=== PATIENT | female | born 1980 | race Caucasian/White ===

== ENCOUNTER → 2020-02-01 13:00 | Outpatient (BNVA) | payer MEDICAID, SELFPAY | PROVIDERS: Visit Provider Psychiatry & Neurology Psychiatry | DX: F41.1 Generalized anxiety disorder (principal); F43.12 Post-traumatic stress disorder, chronic | CPT/HCPCS: 99213 ==

== ENCOUNTER 2020-03-07 12:03 | Emergency (ER) | payer MEDICAID, SELFPAY ==
[2020-03-07 12:10] VITALS: BP 159/93; PULSE 93; RESP 16; TEMP 36.6; O2SAT 95; BMI 27.7
--- NOTE | 2020-03-07 12:23 | ED_ITS ---
HPI - Dental/Oral General: Chief complaint: Dental/Oral Stated complaint: Pain in Mouth/Bleeding Time Seen by Provider: 03/07/20 12:11 Source: patient Mode of arrival: ambulatory Limitations: no limitations History of Present Illness: HPI Narrative: 40-year-old female patient presents to the emergency department with right upper dental pain. She reports dental extraction completed 03/02/2020 by dentist provider in [facility]. She reports use of antibiotics prescribed by her dentist. States dental pain not improved with use of hydrocodone. Reports this morning, had blood/purulent fluid drained from the area. She reports drainage/bleeding has stopped. REmains on clindamycin. MD Complaint: tooth pain Teeth map: 1. Erythema to the gumline, edema present, tooth appears to be avulsed, question incomplete extraction. Onset (ago): day(s) (1-2) Duration: intermittent Severity: moderate Relieving factors: prescription analgesics and other (Tylenol [id number] which has helped) Exacerbating factors: chewing, cold and drinking fluids Context: history of dental caries and poor dental care Associated symptoms: Reports gum swelling; Denies fever(s) Review of Systems General: Reports: 10 or more systems reviewed and unremarkable except in HPI and below Const: Denies: fever(s), chills or diaphoresis Eyes: Denies: blurry vision or eye redness ENMT: Reports: oral sores, bleeding gums and dental pain; Denies: throat pain, uvular edema or disequilibrium Card: Denies: chest pain, palpitations or irregular heart rhythm Resp: Denies: dyspnea, productive cough, non-productive cough or wheezing GI: Denies: abdominal pain, nausea or vomiting : Denies: difficulty voiding or dysuria Musc: Denies: back pain Skin/Breast: Denies: rash or pruritus Neuro: Denies: headache(s), weakness in extremities or behavioral changes Psych: Denies: anxiety or depression Eder/Lymph: Denies: easy bruising PFSH ED PFSH: Social History (Updated 12/17/19 @ 15:12 by Kem Gates LPN) Smoking and tobacco status: never smoked Second hand smoke exposure: Yes Smoking risk assessment/counseling performed?: No Current gender identity: Female Physical Exam Const: COMMON NORMALS: no acute distress, patient oriented x3, healthy appearing and alert GENERAL APPEARANCE: cooperative, comfortable and well hydrated HENMT: COMMON NORMALS: normocephalic, atraumatic, Normal external nose present and moist oral mucous membranes HEAD & SCALP: normal to inspection, normocephalic and atraumatic FACE & SINUS: normal facial exam and sinuses nontender NOSE: Normal external nose present MOUTH: lip normal and tongue normal; no drooling, no malodorous breath and no muffled voice TEETH & GINGIVA: Yes abnormal tooth and associated gingiva TEETH & GINGIVA IMAGES: 1. Erythema to the gumline, edema present, tooth appears to be avulsed, question incomplete extraction. THROAT: no uvular edema Eye: COMMON NORMALS: Equal, round and reactive pupils present and EOMs intact bilaterally GENERAL EYE: appearance normal, both eyes and all related structures PUPIL: Yes Equal, round and reactive pupils present Neck/C-Spine: COMMON NORMALS: full ROM and no lymphadenopathy GENERAL: Yes normal visual inspection and Yes trachea midline CERVICAL SPINE: Yes cervical ROM normal Lymph: LYMPHATIC: no lymphadenopathy noted Chest: COMMONS NORMALS: normal inspection of the chest Resp: COMMON NORMALS: normal respiratory effort and clear to auscultation bilaterally AUSCULTATION: clear to auscultation bilaterally Cardio: COMMON NORMALS: regular rhythm, S1 normal heart sound present, S2 normal heart sound present and Peripheral pulses 2+ throughout RHYTHM: regular rhythm HEART SOUNDS: S1 normal heart sound present and S2 normal heart sound present PERIPHERAL PULSES: Peripheral pulses 2+ throughout GI: COMMON NORMALS: Soft to palpation and non-tender INSPECTION: Yes normal to inspection PALPATION: Yes Soft to palpation : COMMON NORMALS: Yes no CVA tenderness BLADDER/KIDNEY EXAM: Yes no CVA tenderness Back/Pelvis: COMMON NORMALS: no CVA tenderness and thoracic and lumbar spine normal to inspection Extremity: COMMON NORMALS: normal to inspection and capillary refill normal Neuro: COMMON NORMALS: patient oriented x3 and no focal motor deficits SENSORIUM/ORIENTATION: Yes alert Psych: COMMON NORMALS: mental status grossly normal, Normal thought process present and cooperative ACTIVITY/MOTOR BEHAVIOR: Yes appropriate eye contact THOUGHT PROCESS: Normal thought process present Skin: COMMON NORMALS: no rashes or lesions noted and turgor normal GENERAL SKIN EXAM: no rashes or lesions noted and turgor normal Discharge Plan Discharge Patient Disposition: Home Clinical Impression: Pain, dental, Dental caries Condition: Stable Prescriptions: New ibuprofen 800 mg tablet 800 mg PO TID PRN (Reason: pain) Qty: 20 RF: 0 Lidocaine Viscous 2 % solution 10 ml topical Q3H PRN (Reason: pain) Qty: 100 RF: 0 No Action omeprazole 20 mg capsule,delayed release(DR/EC) 20 mg PO BID RF: 0 sertraline [Zoloft] 50 mg tablet 50 mg PO DAILY Qty: 30 RF: 2 hydroxyzine HCl 50 mg tablet 25 mg PO QID PRN (Reason: anxiety) Qty: 120 RF: 2 Discharge Orders: Discharge Order (Routine); Ordered 03/07/20 Ordered By: Francesca Lira Discharge Diet: GI Soft Discharge Activity: Resume usual activity Patient Instructions: Dental Caries (ED), Toothache (ED) Activity Restrictions/Additional Instructions: eat with use of ibuprofen, do not [id number] medication with exception of Tylenol due to duplication of therapy that can occur. Warm salt water swish and spit several times daily May use warm water with half hydrogen peroxide swish and spit several times daily as needed for pain Apply lidocaine gel with Q-tip to painful areas of the mouth as directed Take antibiotics until all gone, even if feeling better Return to the emergency department if you develop redness of the face, fever, inability to swallow or drooling Follow-up with your dentist this week for reevaluation May apply dental wax over the painful areas to help with pain Avoid chewing on the affected side Soft foods only Stand Alone Forms: Work/School Release Coding Level of Care Code ED Linux Solar[employer] 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
[2020-03-07] MEDS: ketorolac 60 mg/2 mL INJ IM (13:21)
[2020-03-07 13:22] VITALS: RESP 16; TEMP 36.6; O2SAT 95
== END 2020-03-07 13:22 | disposition home or self-care (01) ==
PROVIDERS: Emergency Provider Nurse Practitioner Family
DX: K02.9 Dental caries, unspecified (principal); Z77.22 Contact with and (suspected) exposure to environmental tobacco smoke (acute) (chronic)
CPT/HCPCS: 12345; 96372; 99281; 99283; J1885

== ENCOUNTER 2020-04-06 15:43 | Outpatient (CLI) | payer MEDICAID, SELFPAY ==
--- NOTE | 2020-04-06 | US_ITS ---
WS: [id number] PELVIC ULTRASOUND REASON FOR VISIT: HIRSUTISM TECHNIQUE: Grayscale and Doppler transabdominal and transvaginal pelvic ultrasound. FINDINGS: Uterus measures 10.9 cm x 6.6 cm x 5.0 centimeters. No uterine mass. Right ovary measures 2.4 cm x 2.2 cm x 1.9 cm. Left ovary measures 2.3 cm x 1.8 cm x 2.4 cm. Multiple small nabothian and cysts within the cervix. Small solitary cyst seen in the right ovary. The right ovary is otherwise unremarkable. The left ovary is unremarkable. No free fluid in the pelvis. No pelvic mass. US/US pelvic with transvaginal IMPRESSION: Small cyst right ovary, ovaries otherwise unremarkable.
== END 2020-04-06 15:44 | disposition home or self-care (01) ==
LOC: US 15:48
PROVIDERS: PCP Nurse Practitioner Family; Visit Provider Nurse Practitioner Family
DX: L68.0 Hirsutism (principal); N83.201 Unspecified ovarian cyst, right side
CPT/HCPCS: 76830; 76856

== ENCOUNTER → 2020-06-10 09:18 | Outpatient (BNVA) | payer MEDICAID, SELFPAY | PROVIDERS: PCP Nurse Practitioner Family; Visit Provider Psychiatry & Neurology Psychiatry | DX: F41.1 Generalized anxiety disorder (principal); F43.12 Post-traumatic stress disorder, chronic | CPT/HCPCS: 99214 ==

== ENCOUNTER → 2020-08-26 10:48 | Outpatient (BNVA) | payer MEDICAID, SELFPAY | PROVIDERS: PCP Nurse Practitioner Family; Visit Provider Psychiatry & Neurology Psychiatry | DX: F41.1 Generalized anxiety disorder (principal); F43.12 Post-traumatic stress disorder, chronic | CPT/HCPCS: 99214 ==

== ENCOUNTER 2020-11-10 12:30 | Emergency (ER) | payer MEDICARE, MEDICAID, SELFPAY ==
[2020-11-10 12:43] VITALS: BP 123/86; PULSE 98; RESP 18; TEMP 36.9; O2SAT 95; BMI 29.8
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
[2020-11-10] MEDS: ketorolac 60 mg/2 mL INJ IM (13:55)
[2020-11-10 15:31] VITALS: BP 124/89; PULSE 89; RESP 18; O2SAT 98
== END 2020-11-10 15:32 | disposition home or self-care (01) ==
PROVIDERS: Emergency Provider Physician Assistant; PCP Nurse Practitioner Family
DX: S13.4XXA Sprain of ligaments of cervical spine, initial encounter (principal); M25.512 Pain in left shoulder; Z77.22 Contact with and (suspected) exposure to environmental tobacco smoke (acute) (chronic); V89.2XXA Person injured in unspecified motor-vehicle accident, traffic, initial encounter
CPT/HCPCS: 70450; 72125; 73030; 96372; 99283; J1885

== ENCOUNTER → 2020-11-22 10:03 | Outpatient (BNVA) | payer MEDICAID, SELFPAY | PROVIDERS: PCP Nurse Practitioner Family; Visit Provider Psychiatry & Neurology Psychiatry | DX: F41.1 Generalized anxiety disorder (principal); F43.12 Post-traumatic stress disorder, chronic | CPT/HCPCS: 99214 ==

== ENCOUNTER 2020-11-30 06:00 | Outpatient (RCR) | payer MEDICAID, SELFPAY | END 2020-12-27 23:59 | disposition home or self-care (01) | LOC: SPT 06:00 | PROVIDERS: PCP Nurse Practitioner Family; Referring Provider Internal Medicine; Visit Provider Internal Medicine | DX: M79.10 Myalgia, unspecified site (principal); Z91.89 Other specified personal risk factors, not elsewhere classified; M25.512 Pain in left shoulder; M54.9 Dorsalgia, unspecified | CPT/HCPCS: 97161 ==

== ENCOUNTER → 2021-01-06 12:50 | Outpatient (BNVA) | payer MEDICAID, SELFPAY | PROVIDERS: PCP Nurse Practitioner Family; Visit Provider Psychiatry & Neurology Psychiatry | DX: F41.1 Generalized anxiety disorder (principal); F43.12 Post-traumatic stress disorder, chronic | CPT/HCPCS: 99213 ==

== ENCOUNTER → 2021-01-10 14:42 | Outpatient (BNVA) | payer MEDICAID, SELFPAY | PROVIDERS: PCP Nurse Practitioner Family; Visit Provider Family Medicine | DX: F41.1 Generalized anxiety disorder (principal); R63.5 Abnormal weight gain; Z13.220 Encounter for screening for lipoid disorders; Z13.6 Encounter for screening for cardiovascular disorders; Z76.89 Persons encountering health services in other specified circumstances | CPT/HCPCS: 80053; 80061; 84443; 85025 ==

== ENCOUNTER → 2021-03-06 11:50 | Outpatient (BNVA) | payer MEDICAID, SELFPAY | PROVIDERS: PCP Nurse Practitioner Family; Visit Provider Nurse Practitioner | DX: Z20.822 Contact with and (suspected) exposure to COVID-19 (principal); B34.9 Viral infection, unspecified | CPT/HCPCS: 87426 ==

== ENCOUNTER → 2021-05-22 16:58 | Outpatient (BNVA) | payer MEDICAID, SELFPAY | PROVIDERS: PCP Family Medicine; Visit Provider Nurse Practitioner Family | DX: Z20.822 Contact with and (suspected) exposure to COVID-19 (principal) | CPT/HCPCS: 87635 ==

== ENCOUNTER → 2021-06-28 09:25 | Outpatient (BNVA) | payer MEDICAID, SELFPAY | PROVIDERS: PCP Family Medicine; Visit Provider Nurse Practitioner Family | DX: Z20.822 Contact with and (suspected) exposure to COVID-19 (principal) | CPT/HCPCS: 87635 ==

== ENCOUNTER → 2021-07-05 14:02 | Outpatient (BNVA) | payer MEDICAID, SELFPAY | PROVIDERS: PCP Family Medicine; Visit Provider Psychiatry & Neurology Psychiatry | DX: F41.1 Generalized anxiety disorder (principal); F43.12 Post-traumatic stress disorder, chronic; G47.00 Insomnia, unspecified | CPT/HCPCS: 99214 ==

== ENCOUNTER 2022-01-20 20:53 | Emergency (ER) | payer MEDICARE, MEDICAID, SELFPAY ==
[2022-01-20 21:00] VITALS: BP 122/84; PULSE 75; RESP 18; TEMP 36.5; O2SAT 97; BMI 33.9
[2022-01-20 22:00] VITALS: BP 129/83; PULSE 78; RESP 18; TEMP 36.6; O2SAT 97
--- NOTE | 2022-01-20 22:08 | W.ED.BACK ---
HPI - Back Pain/Injury General: Chief Complaint: Back Pain/Injury Stated Complaint: lower back pain Time Seen by Provider: 01/20/22 21:39 History of Present Illness: Patient is a 42-year-old female comes to the ED with lower back pain. 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 She has had low back strains like this in the past and has been prescribed muscle relaxers which she is currently out of. She took Motrin around 5:00 tonight. Denies any pain radiating down her legs, bladder or bowel incontinence, pelvic anesthesia or any weakness to lower extremities. Associated symptoms: Deny abdominal pain, chills, dysuria, fatigue, fever(s), hematuria, nausea or vomiting Review of Systems Const: Denies: fever(s), chills or fatigue Eyes: Denies: change in vision or eye discomfort ENMT: Denies: throat pain, odynophagia, nasal discharge or nasal congestion Card: Denies: chest pain, palpitations, edema, swelling of feet/ankles, dyspnea on exertion or orthopnea Resp: Denies: dyspnea, productive cough or non-productive cough GI: Denies: abdominal pain, nausea, vomiting, diarrhea, constipation or hematochezia : Denies: flank pain, dysuria or hematuria Musc: Reports: back pain; Denies: neck pain or extremity swelling Skin/Breast: Denies: rash or new lesions Neuro: Denies: headache(s), numbness in extremities or weakness in extremities PFS ED PFSH: Medical History (Updated 01/20/22 @ 22:28 by TIM Soliz) No pertinent family history Psychiatric care Social History Smoking and tobacco status: former smoker Quit status (tobacco): has quit using tobacco Year quit tobacco: 2004 Second hand smoke exposure: Yes Smoking risk assessment/counseling performed?: No Alcohol intake: former Year of sobriety/quit date alcohol: 2004 Desire information about alcohol rehabilitation?: No Counseling given: No Current gender identity: Female Female Reproductive History: Date of last menstrual period: 01/23/22 Physical Exam Const: COMMON NORMALS: no acute distress, patient oriented x3 and alert GENERAL APPEARANCE: cooperative and comfortable HENMT: COMMON NORMALS: normocephalic HEAD & SCALP: normocephalic MOUTH: Normal oral and palatal mucosa present THROAT: posterior oropharynx normal and uvula midline Neck/C-Spine: COMMON NORMALS: supple GENERAL: Yes normal visual inspection Resp: COMMON NORMALS: normal respiratory effort, No retractions, No use of accessory muscles and clear to auscultation bilaterally AUSCULTATION: clear to auscultation bilaterally Cardio: COMMON NORMALS: regular rate, regular rhythm, S1 normal heart sound present, S2 normal heart sound present, No gallops present (Cardio), No clicks present (Cardio), No murmurs present (Cardio) and Peripheral pulses 2+ throughout RATE: regular rate RHYTHM: regular rhythm HEART SOUNDS: S1 normal heart sound present and S2 normal heart sound present PERIPHERAL PULSES: Peripheral pulses 2+ throughout GI: COMMON NORMALS: Normal to inspection, nondistended, normoactive bowel sounds present, Soft to palpation, non-tender and no masses PALPATION: Yes Soft to palpation : COMMON NORMALS: Yes no CVA tenderness BLADDER/KIDNEY EXAM: Yes no CVA tenderness Back/Pelvis: COMMON NORMALS: no CVA tenderness LUMBAR SPINE/LOWER BACK: No lumbar spinal tenderness and Yes paraspinal muscle tenderness Lumbar paraspinal muscle tenderness: bilateral Extremity: COMMON NORMALS: normal to inspection Neuro: COMMON NORMALS: patient oriented x3 SENSORIUM/ORIENTATION: Yes alert GAIT: Yes Normal gait present Skin: GENERAL SKIN EXAM: dry skin Course Vital Signs: Vital signs: Vital Signs Temperature 97.8 F 01/20/22 22:00 Pulse Rate 78 01/20/22 22:00 Respiratory Rate 18 01/20/22 22:00 Blood Pressure 129/83 01/20/22 22:00 Pulse Oximetry 97 01/20/22 22:00 Oxygen Delivery Me thod 01/20/22 22:00 MDM - Back Pain/Injury Medical Decision Making Patient is a 42-year-old female comes to the ED with lower back pain. 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 Denies any cauda equina symptoms. Vitals are stable. Patient appears nontoxic in no acute distress or pain. She has some lumbar paraspinal muscle tenderness bilaterally but no spinal lumbar tenderness. Patient was given a dose of Toradol and Norflex here in the ED. She is diagnosed with lower back strain and was discharged home with a prescription for ibuprofen and a muscle relaxer. Return to ED precautions given. Follow-up with PCP in the next week for reevaluation. Patient understood agree with plan. Discharge Plan Discharge Patient Disposition: Home Clinical Impression: Low back strain Qualifiers: Encounter type: initial encounter Qualified Code(s): S39.012A - Strain of muscle, fascia and tendon of lower back, initial encounter Condition: Stable Prescriptions: New methocarbamol 750 mg tablet 750 mg PO Q8H PRN (Reason: Back muscle pain and spasms) Qty: 20 0RF ibuprofen 800 mg tablet 800 mg PO Q8H PRN (Reason: pain) Qty: 20 0RF No Action fluticasone propionate [Allergy Relief (fluticasone)] 50 mcg/actuation spray,suspension 1 spray intranasal BID Rx Instructions: administer into each nostril albuterol sulfate [Ventolin HFA] 90 mcg/actuation HFA aerosol inhaler 2 puff inhalation Q6H PRN (Reason: Shortness Of Breath) baclofen 10 mg tablet 10 mg PO TID PRN (Reason: pain) Qty: 60 2RF trazodone 100 mg tablet 200 mg PO .HS PRN (Reason: insomnia) Qty: 180 0RF sertraline 100 mg tablet 200 mg PO DAILY 90 Days Qty: 180 0RF hydroxyzine HCl 50 mg tablet 50 mg PO QID PRN (Reason: anxiety) Qty: 360 0RF propranolol 20 mg tablet 20 mg PO BID 90 Days Qty: 180 0RF sucralfate 1 gram tablet 1 g PO BID Qty: 60 3RF pantoprazole [Protonix] 40 mg tablet,delayed release (DR/EC) 40 mg PO BID Qty: 60 3RF Discharge Orders: Discharge ED (Routine); Ordered 01/20/22 Ordered By: Freddy Joseph Referrals: Frankie Polo DO [Primary Care Provider] - Discharge Diet: Regular Discharge Activity: Increase activity as tolerated Patient Instructions: Low Back Strain (ED) Activity Restrictions/Additional Instructions: Follow-up with medical provider as directed in the next 7 to 10 days for reevaluation. Take medications as prescribed. Return to the ER or your medical provider if condition worsens. Please read and understand discharge instructions. Thank you for choosing [facility] for your healthcare needs today. Please realize this is an emergency room and that we are providing you with a medical screening exam and this may not be complete and all inclusive of all the testing and or work up that you may need to determine your ailment or severity of your illness. It is very important that you follow up as instructed or that you return to the Emergency Department should you have concerns or if your condition changes or worsens in any way. 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
[2022-01-20] MEDS: orphenadrine 30 mg/mL Inj 2 mL 60 MG IM (22:16)
[2022-01-20] MEDS: ketorolac 60 mg/2 mL INJ IM (22:17)
[2022-01-20 22:30] VITALS: BP 132/95; PULSE 75; RESP 16; O2SAT 94
== END 2022-01-20 22:30 | disposition home or self-care (01) ==
PROVIDERS: Emergency Provider Physician Assistant; PCP Family Medicine
DX: S39.012A Strain of muscle, fascia and tendon of lower back, initial encounter (principal); X50.9XXA Other and unspecified overexertion or strenuous movements or postures, initial encounter
CPT/HCPCS: 96372; 99284; J1885; J2360

== ENCOUNTER 2022-04-30 15:15 | Emergency (ER) | payer MEDICARE, MEDICAID, SELFPAY ==
[2022-04-30 15:24] VITALS: BP 135/78; PULSE 91; RESP 14; TEMP 36.6; O2SAT 98
--- NOTE | 2022-04-30 17:27 | W.ED.GENADLT ---
HPI - General Adult General: Chief complaint: Abdominal Pain Stated complaint: Med refill, abd pains Time Seen by Provider: 04/30/22 17:11 History of Present Illness: Patient is a 42-year-old female comes to the ED for medication refill. Patient takes acid reflux medication and she has been out of them for the past 3 to 4 days. She has been trying to get her medications refilled but said trouble getting in touch with her doctor due to the holidays. Denies any chest pain, abdominal pain, nausea/vomiting. Associated symptoms: Deny chest pain, dyspnea, headache(s), nausea, rash, palpitations or vomiting Review of Systems Const: Denies: fever(s), chills or fatigue Eyes: Denies: change in vision or eye discomfort ENMT: Denies: throat pain, odynophagia, nasal discharge or nasal congestion Card: Denies: chest pain, palpitations, edema, swelling of feet/ankles, dyspnea on exertion or orthopnea Resp: Denies: dyspnea, productive cough or non-productive cough GI: Reports: heartburn; Denies: abdominal pain, nausea, vomiting, diarrhea, constipation or hematochezia : Denies: flank pain, dysuria or hematuria Musc: Denies: neck pain, back pain or extremity swelling Skin/Breast: Denies: rash or new lesions Neuro: Denies: headache(s), numbness in extremities or weakness in extremities PFSH ED PFSH: Medical History (Updated 05/01/22 @ 01:03 by TIM Soliz) GERD without esophagitis No pertinent family history Psychiatric care Social History Smoking and tobacco status: former smoker Quit status (tobacco): has quit using tobacco Year quit tobacco: 2004 Second hand smoke exposure: Yes Smoking risk assessment/counseling performed?: No Alcohol intake: former Year of sobriety/quit date alcohol: 2004 Desire information about alcohol rehabilitation?: No Counseling given: No Current gender identity: Female Female Reproductive History: Date of last menstrual period: 01/23/22 Physical Exam Const: COMMON NORMALS: no acute distress, patient oriented x3 and alert GENERAL APPEARANCE: cooperative and comfortable HENMT: COMMON NORMALS: normocephalic HEAD & SCALP: normocephalic MOUTH: Normal oral and palatal mucosa present THROAT: posterior oropharynx normal and uvula midline Neck/C-Spine: COMMON NORMALS: supple GENERAL: Yes normal visual inspection Resp: COMMON NORMALS: normal respiratory effort, No retractions, No use of accessory muscles and clear to auscultation bilaterally AUSCULTATION: clear to auscultation bilaterally Cardio: COMMON NORMALS: regular rate, regular rhythm, S1 normal heart sound present, S2 normal heart sound present, No gallops present (Cardio), No clicks present (Cardio), No murmurs present (Cardio) and Peripheral pulses 2+ throughout RATE: regular rate RHYTHM: regular rhythm HEART SOUNDS: S1 normal heart sound present and S2 normal heart sound present PERIPHERAL PULSES: Peripheral pulses 2+ throughout GI: COMMON NORMALS: Normal to inspection, nondistended, normoactive bowel sounds present, Soft to palpation, non-tender and no masses PALPATION: Yes Soft to palpation : COMMON NORMALS: Yes no CVA tenderness BLADDER/KIDNEY EXAM: Yes no CVA tenderness Back/Pelvis: COMMON NORMALS: no CVA tenderness Extremity: COMMON NORMALS: normal to inspection Neuro: COMMON NORMALS: patient oriented x3 SENSORIUM/ORIENTATION: Yes alert GAIT: Yes Normal gait present Skin: GENERAL SKIN EXAM: dry skin Course Vital Signs: Vital signs: Vital Signs Temperature 97.9 F 04/30/22 15:24 Pulse Rate 91 04/30/22 15:24 Respiratory Rate 14 04/30/22 15:24 Blood Pressure 135/78 04/30/22 15:24 Pulse Oximetry 98 04/30/22 15:24 Oxygen Delivery Me thod 04/30/22 15:24 [facility] - General Adult Medical Decision Making Patient is a 42-year-old female comes to the ED for medication refill. Patient takes acid reflux medication and she has been out of them for the past 3 to 4 days. She has been trying to get her medications refilled but said trouble getting in touch with her doctor due to the holidays. Denies any chest pain, abdominal pain, nausea/vomiting. Exam is benign. Patient was stable for discharge home and sent with a prescription for pantoprazole and sucralfate. Told to follow-up with her PCP next week for reevaluation. Return ED precautions given. Patient understood and agreed with plan. Discharge Plan Discharge Patient Disposition: Home Clinical Impression: Acid reflux disease Qualifiers: Esophagitis presence: esophagitis presence not specified Qualified Code(s): K21.9 - Gastro-esophageal reflux disease without esophagitis Condition: Stable Prescriptions: New pantoprazole 40 mg tablet,delayed release (DR/EC) 40 mg PO DAILY 28 Days Qty: 30 0RF sucralfate 1 gram tablet 1 g PO BID Qty: 60 0RF No Action fluticasone propionate [Allergy Relief (fluticasone)] 50 mcg/actuation spray,suspension 1 spray intranasal BID Rx Instructions: administer into each nostril albuterol sulfate [Ventolin HFA] 90 mcg/actuation HFA aerosol inhaler 2 puff inhalation Q6H PRN (Reason: Shortness Of Breath) baclofen 10 mg tablet 10 mg PO TID PRN (Reason: pain) Qty: 60 2RF pantoprazole [Protonix] 40 mg tablet,delayed release (DR/EC) 40 mg PO BID Qty: 60 3RF hydroxyzine HCl 50 mg tablet 50 mg PO QID PRN (Reason: anxiety) Qty: 120 0RF sertraline 100 mg tablet 200 mg PO DAILY Qty: 30 0RF trazodone 100 mg tablet 200 mg PO .HS PRN (Reason: insomnia) Qty: 60 0RF propranolol 20 mg tablet 20 mg PO BID Qty: 60 0RF sucralfate 1 gram tablet See Rx Instructions .ROUTE .COMPLEX Qty: 60 0RF Dose Instruction: TAKE ONE TABLET BY MOUTH TWICE A DAY Rx Instructions: TAKE ONE TABLET BY MOUTH TWICE A DAY methocarbamol 750 mg tablet 750 mg PO Q8H PRN (Reason: Back muscle pain and spasms) Qty: 20 0RF ibuprofen 800 mg tablet 800 mg PO Q8H PRN (Reason: pain) Qty: 20 0RF Discharge Orders: Discharge ED (Routine); Ordered 04/30/22 Ordered By: Freddy Joseph Referrals: Frankie Polo DO [Primary Care Provider] - Discharge Diet: Regular Discharge Activity: Increase activity as tolerated Activity Restrictions/Additional Instructions: Follow-up with medical provider as directed. Take medications as prescribed. Return to the ER or your medical provider if condition worsens. Please read and understand discharge instructions. Thank you for choosing [facility] for your healthcare needs today. Please realize this is an emergency room and that we are providing you with a medical screening exam and this may not be complete and all inclusive of all the testing and or work up that you may need to determine your ailment or severity of your illness. It is very important that you follow up as instructed or that you return to the Emergency Department should you have concerns or if your condition changes or worsens in any way. 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
== END 2022-04-30 17:37 | disposition home or self-care (01) ==
PROVIDERS: Emergency Provider Physician Assistant; PCP Family Medicine
DX: K21.9 Gastro-esophageal reflux disease without esophagitis (principal); Z87.891 Personal history of nicotine dependence
CPT/HCPCS: 99283

== ENCOUNTER 2022-05-19 15:00 | Emergency (ER) | payer MEDICARE, MEDICAID, SELFPAY ==
[2022-05-19 15:18] VITALS: BP 133/75; PULSE 101; RESP 18; TEMP 36.4; O2SAT 97
--- NOTE | 2022-05-19 16:26 | W.ED.BACK ---
HPI - Back Pain/Injury General: Chief Complaint: Back Pain/Injury Stated Complaint: Pain in the backs Time Seen by Provider: 05/19/22 16:17 History of Present Illness: Patient is a 42-year-old female comes to the ED with lower back pain. Patient has chronic lower back pain and states that she aggravated it at work a couple days ago. Patient says she was lifting some heavy boxes and when she lifted and twisted her back she felt a sharp pain in her lower back. She continues having lower back muscle spasms since injury. Denies any other symptoms. Associated symptoms: Deny abdominal pain, chills, dysuria, fatigue, fever(s), hematuria, nausea or vomiting Review of Systems Const: Denies: fever(s), chills or fatigue Eyes: Denies: change in vision or eye discomfort ENMT: Denies: throat pain, odynophagia, nasal discharge or nasal congestion Card: Denies: chest pain, palpitations, edema, swelling of feet/ankles, dyspnea on exertion or orthopnea Resp: Denies: dyspnea, productive cough or non-productive cough GI: Denies: abdominal pain, nausea, vomiting, diarrhea, constipation or hematochezia : Denies: flank pain, dysuria or hematuria Musc: Reports: back pain; Denies: neck pain or extremity swelling Skin/Breast: Denies: rash or new lesions Neuro: Denies: headache(s), numbness in extremities or weakness in extremities PFSH ED PFSH: Medical History GERD without esophagitis No pertinent family history Psychiatric care Social History Smoking and tobacco status: former smoker Quit status (tobacco): has quit using tobacco Year quit tobacco: 2004 Second hand smoke exposure: Yes Smoking risk assessment/counseling performed?: No Alcohol intake: former Year of sobriety/quit date alcohol: 2004 Desire information about alcohol rehabilitation?: No Counseling given: No Current gender identity: Female Female Reproductive History: Date of last menstrual period: 01/23/22 Physical Exam Const: COMMON NORMALS: patient oriented x3 HENMT: COMMON NORMALS: normocephalic HEAD & SCALP: normocephalic MOUTH: Normal oral and palatal mucosa present THROAT: posterior oropharynx normal and uvula midline Neck/C-Spine: COMMON NORMALS: supple GENERAL: Yes normal visual inspection Resp: COMMON NORMALS: normal respiratory effort, No retractions, No use of accessory muscles and clear to auscultation bilaterally AUSCULTATION: clear to auscultation bilaterally Cardio: COMMON NORMALS: regular rate, regular rhythm, S1 normal heart sound present, S2 normal heart sound present, No gallops present (Cardio), No clicks present (Cardio), No murmurs present (Cardio) and Peripheral pulses 2+ throughout RATE: regular rate RHYTHM: regular rhythm HEART SOUNDS: S1 normal heart sound present and S2 normal heart sound present PERIPHERAL PULSES: Peripheral pulses 2+ throughout GI: COMMON NORMALS: Normal to inspection, nondistended, normoactive bowel sounds present, Soft to palpation, non-tender and no masses PALPATION: Yes Soft to palpation : COMMON NORMALS: Yes no CVA tenderness BLADDER/KIDNEY EXAM: Yes no CVA tenderness Back/Pelvis: COMMON NORMALS: no CVA tenderness LUMBAR SPINE/LOWER BACK: Yes paraspinal muscle tenderness Lumbar paraspinal muscle tenderness: bilateral Bilateral lumbar paraspinal muscle tenderness: L1, L2 and L3 Extremity: COMMON NORMALS: normal to inspection Neuro: COMMON NORMALS: patient oriented x3 GAIT: Yes Normal gait present Skin: GENERAL SKIN EXAM: dry skin Course Vital Signs: Vital signs: Vital Signs Temperature 97.5 F L 05/19/22 18:18 Pulse Rate 101 H 05/19/22 18:18 Respiratory Rate 18 05/19/22 18:18 Blood Pressure 133/75 05/19/22 18:18 Pulse Oximetry 97 05/19/22 18:18 Oxygen Delivery Mn thod 05/19/22 15:18 MDM - Back Pain/Injury Medical Decision Making Patient is a 42-year-old female comes to the ED with lower back pain. Patient has chronic lower back pain and states that she aggravated it at work a couple days ago. Patient says she was lifting some heavy boxes and when she lifted and twisted her back she felt a sharp pain in her lower back. She continues having lower back muscle spasms since injury. Denies any other symptoms. Vitals are stable. Patient has bilateral lumbar paraspinal muscle tenderness of L1-L2 and L3. Rest of exam is benign. Patient diagnosed with lower back strain and was given a dose of Toradol and Norflex. She was discharged home with a prescription for an NSAID and muscle relaxer. Follow-up with PCP in the next week for reevaluation. Return to ED precautions given. Patient understood and agreed with plan. Labs I reviewed the patient's lab results. Laboratory Results HCG, Qual Negative (Negative) 05/19/22 17:02 Urine Color Yellow (Yellow) 05/19/22 17:02 Urine Appearance Hazy (CLEAR) A 05/19/22 17:02 Urine pH 5 (5-7) 05/19/22 17:02 Ur Specific [place] 1.025 (1.005-1.030) 05/19/22 17:02 Urine Protein Neg (Negative) 05/19/22 17:02 Urine Glucose (UA) Norm (Normal) 05/19/22 17:02 Urine Ketones 1+ (Negative) H 05/19/22 17:02 Urine Blood 2+ (Negative) H 05/19/22 17:02 Urine Nitrate Negative (Negative) 05/19/22 17:02 Urine Bilirubin Neg (Negative) 05/19/22 17:02 Urine Urobilinogen Norm mg/dL (Negative) 05/19/22 17:02 Ur Leukocyte Esterase 2+ (Negative) H 05/19/22 17:02 Urine RBC 10-15 /hpf (0-2) H 05/19/22 17:02 Urine WBC 40-55 /hpf (0-5) H 05/19/22 17:02 Ur Squamous Epith Cells 15-25 /hpf (0-5) H 05/19/22 17:02 Amorphous Sediment Not Reportable 05/19/22 17:02 Urine Bacteria 2+ /hpf (NONE) H 05/19/22 17:02 Urine Mucus 1+ /hpf 05/19/22 17:02 Discharge Plan Discharge Patient Disposition: Home Clinical Impression: Low back strain Qualifiers: Encounter type: initial encounter Qualified Code(s): S39.012A - Strain of muscle, fascia and tendon of lower back, initial encounter Condition: Stable Prescriptions: New Celebrex 100 mg capsule 100 mg PO BID PRN (Reason: pain) Qty: 20 0RF cyclobenzaprine 10 mg tablet 10 mg PO BID PRN (Reason: muscle spasm) Qty: 20 0RF No Action fluticasone propionate [Allergy Relief (fluticasone)] 50 mcg/actuation spray,suspension 1 spray intranasal BID Rx Instructions: administer into each nostril albuterol sulfate [Ventolin HFA] 90 mcg/actuation HFA aerosol inhaler 2 puff inhalation Q6H PRN (Reason: Shortness Of Breath) baclofen 10 mg tablet 10 mg PO TID PRN (Reason: pain) Qty: 60 2RF pantoprazole [Protonix] 40 mg tablet,delayed release (DR/EC) 40 mg PO BID Qty: 60 3RF hydroxyzine HCl 50 mg tablet 50 mg PO QID PRN (Reason: anxiety) Qty: 120 0RF sertraline 100 mg tablet 200 mg PO DAILY Qty: 30 0RF trazodone 100 mg tablet 200 mg PO .HS PRN (Reason: insomnia) Qty: 60 0RF propranolol 20 mg tablet 20 mg PO BID Qty: 60 0RF sucralfate 1 gram tablet See Rx Instructions .ROUTE .COMPLEX Qty: 60 0RF Dose Instruction: TAKE ONE TABLET BY MOUTH TWICE A DAY Rx Instructions: TAKE ONE TABLET BY MOUTH TWICE A DAY methocarbamol 750 mg tablet 750 mg PO Q8H PRN (Reason: Back muscle pain and spasms) Qty: 20 0RF ibuprofen 800 mg tablet 800 mg PO Q8H PRN (Reason: pain) Qty: 20 0RF pantoprazole 40 mg tablet,delayed release (DR/EC) 40 mg PO DAILY 28 Days Qty: 30 0RF sucralfate 1 gram tablet 1 g PO BID Qty: 60 0RF Discharge Orders: Discharge ED (Routine); Ordered 05/19/22 Ordered By: Freddy Joseph Referrals: Frankie Polo DO [Primary Care Provider] - Discharge Diet: Regular Discharge Activity: Increase activity as tolerated Patient Instructions: Low Back Strain (ED) Activity Restrictions/Additional Instructions: Follow-up with medical provider as directed in the next 5 to 7 days for reevaluation. Take medications as prescribed. You can stop taking your previously prescribed ibuprofen 800 mg, now that you are taking Celebrex. Also stop taking baclofen and methocarbamol since Newly prescribed muscle relaxer cyclobenzaprine. return to the ER or your medical provider if condition worsens. Please read and understand discharge instructions. Thank you for choosing [facility] for your healthcare needs today. Please realize this is an emergency room and that we are providing you with a medical screening exam and this may not be complete and all inclusive of all the testing and or work up that you may need to determine your ailment or severity of your illness. It is very important that you follow up as instructed or that you return to the Emergency Department should you have concerns or if your condition changes or worsens in any way. 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
[2022-05-19] MEDS: ketorolac 60 mg/2 mL INJ IM (17:10)
[2022-05-19] MEDS: orphenadrine 30 mg/mL Inj 2 mL 60 MG IM (17:10)
[2022-05-19 17:49] LABS: HCG Qualitative Urine. Negative (Negative)
[2022-05-19 17:52] LABS: Add Urine Microscopic? YES; Bilirubin Urine Neg (Negative); Blood Urine 2+ (Negative); Glucose Urine UA Norm (Normal); Ketones Urine 1+ (Negative); Leukocyte Esterase Urine 2+ (Negative); Nitrate Urine Negative (Negative); Protein Urine Neg (Negative); Specific Gravity, Urine 1.025 (1.005-1.030); Urine Appearance Hazy (CLEAR); Urine Color Yellow (Yellow); Urobilinogen Urine Norm (Negative); pH Urine 5 (5-7)
[2022-05-19 17:54] LABS: Bacteria Urine 2+ /hpf; Mucus Urine 1+ /hpf; Squamous Epithelial Cell Urine 15-25 /hpf (0-5); WBC Urine 40-55 /hpf (0-5)
[2022-05-19 17:55] LABS: Add Urine Culture? No
[2022-05-19 18:18] VITALS: BP 133/75; PULSE 101; RESP 18; TEMP 36.4; O2SAT 97
== END 2022-05-19 18:08 | disposition home or self-care (01) ==
PROVIDERS: Emergency Medicine; Emergency Provider Physician Assistant; PCP Family Medicine
DX: S39.012A Strain of muscle, fascia and tendon of lower back, initial encounter (principal); Z87.891 Personal history of nicotine dependence; X50.0XXA Overexertion from strenuous movement or load, initial encounter
CPT/HCPCS: 81001; 81025; 96372; 99284; J1885; J2360

== ENCOUNTER 2022-06-24 15:06 | Emergency (ER) | payer MEDICARE, MEDICAID, SELFPAY ==
[2022-06-24 15:22] VITALS: BP 134/103; PULSE 77; RESP 16; TEMP 36.8; O2SAT 98; BMI 29.0
[2022-06-24 15:29] VITALS: BP 134/103; PULSE 77; RESP 16; O2SAT 97
[2022-06-24] MEDS: tetanus-dipt-pertussis 0.5 mL SDV IM (15:41)
[2022-06-24] MEDS: lidocaine 4% cream 5 gm 1 APPLIC TOPICAL (15:42)
--- NOTE | 2022-06-24 15:47 | W.ED.WOUNDLC ---
HPI - Wound/Laceration General: Chief Complaint: Wound/Laceration Stated Complaint: Right index finger lac Time Seen by Provider: 06/24/22 15:21 History of Present Illness: 42-year-old female presents with a laceration to her right index finger. She reports that happened yesterday. She had it bandaged. She reports that she is not up-to-date on her tetanus. Patient presents because she felt need to be looked at since it was still bleeding a little bit and she missed work and needs a work note. Review of Systems General: Reports: 10 or more systems reviewed and unremarkable except in HPI and below Skin/Breast: Reports: other (laceration ) ON LICENSE OF [facility] ED PFSH: Medical History GERD without esophagitis No pertinent family history Psychiatric care Social History Smoking and tobacco status: former smoker Quit status (tobacco): has quit using tobacco Year quit tobacco: 2004 Second hand smoke exposure: Yes Smoking risk assessment/counseling performed?: No Alcohol intake: former Year of sobriety/quit date alcohol: 2004 Desire information about alcohol rehabilitation?: No Counseling given: No Current gender identity: Female Physical Exam Const: COMMON NORMALS: no acute distress, average body habitus, patient oriented x3 and alert Resp: COMMON NORMALS: normal respiratory effort and No use of accessory muscles Cardio: COMMON NORMALS: regular rate and regular rhythm RATE: regular rate RHYTHM: regular rhythm Extremity: COMMON NORMALS: full ROM and capillary refill normal Neuro: COMMON NORMALS: patient oriented x3 SENSORIUM/ORIENTATION: Yes alert Psych: COMMON NORMALS: mental status grossly normal, Normal thought process present and cooperative THOUGHT PROCESS: Normal thought process present Skin: NARRATIVE SKIN EXAM: Your regular 2 cm laceration right index finger Procedures Laceration Laceration 1: Site: hand (Index finger) Side (If applicable): right Size (cm): 2 Description: irregular and clean Depth: simple, single layer Local Anesthetic: other anesthetic (Topical lidocaine) Pre-repair: wound explored and deep structures intact Skin layer closed with: other (Skin adhesive) Course Vital Signs: Vital signs: Vital Signs Temperature 98.3 F 06/24/22 15:22 Pulse Rate 77 06/24/22 15:29 Respiratory Rate 16 06/24/22 15:29 Blood Pressure 134/103 06/24/22 15:29 Pulse Oximetry 97 06/24/22 15:29 Oxygen Delivery Me thod 06/24/22 15:29 MDM - Wound/Laceration Medical Decision Making Patient with a approximately 2 cm irregular laceration that is superficial. Is been approximately 24 hours since it happened so at this time suture is not indicated. Was able to get some close approximation with skin adhesive. Patient was stable and discharged home. I recommend she keep it clean with warm soapy water, does not submersion for 24 hours. She is okay to go back to work tomorrow with no restrictions. Discharge Plan Discharge Patient Disposition: Home Clinical Impression: Laceration of right index finger without damage to nail Qualifiers: Encounter type: initial encounter Foreign body presence: without foreign body Qualified Code(s): S61.210A - Laceration without foreign body of right index finger without damage to nail, initial encounter Condition: Stable Prescriptions: No Action fluticasone propionate [Allergy Relief (fluticasone)] 50 mcg/actuation spray,suspension 1 spray intranasal BID Rx Instructions: administer into each nostril albuterol sulfate [Ventolin HFA] 90 mcg/actuation HFA aerosol inhaler 2 puff inhalation Q6H PRN (Reason: Shortness Of Breath) baclofen 10 mg tablet 10 mg PO TID PRN (Reason: pain) Qty: 60 2RF pantoprazole [Protonix] 40 mg tablet,delayed release (DR/EC) 40 mg PO BID Qty: 60 3RF hydroxyzine HCl 50 mg tablet 50 mg PO QID PRN (Reason: anxiety) Qty: 120 0RF sertraline 100 mg tablet 200 mg PO DAILY Qty: 30 0RF trazodone 100 mg tablet 200 mg PO .HS PRN (Reason: insomnia) Qty: 60 0RF propranolol 20 mg tablet 20 mg PO BID Qty: 60 0RF sucralfate 1 gram tablet See Rx Instructions .ROUTE .COMPLEX Qty: 60 0RF Dose Instruction: TAKE ONE TABLET BY MOUTH TWICE A DAY Rx Instructions: TAKE ONE TABLET BY MOUTH TWICE A DAY methocarbamol 750 mg tablet 750 mg PO Q8H PRN (Reason: Back muscle pain and spasms) Qty: 20 0RF ibuprofen 800 mg tablet 800 mg PO Q8H PRN (Reason: pain) Qty: 20 0RF sucralfate 1 gram tablet 1 g PO BID Qty: 60 0RF Celebrex 100 mg capsule 100 mg PO BID PRN (Reason: pain) Qty: 20 0RF cyclobenzaprine 10 mg tablet 10 mg PO BID PRN (Reason: muscle spasm) Qty: 20 0RF Discharge Orders: Discharge ED (Routine); Ordered 06/24/22 Ordered By: Noe Murillo Referrals: Frankie Polo, [Primary Care Provider] - Discharge Diet: Usual diet Discharge Activity: Resume usual activity Patient Instructions: Opioid Safety, Pain Management, Skin Adhesive Care (ED), Finger Laceration (ED) Activity Restrictions/Additional Instructions: Do not submerge in water, wear your finger splint for approximately 24 to 36 hours. You are okay to return to work with no restrictions. Keep clean with warm soapy water, please wear gloves while at work Stand Alone Forms: Work/School Release Coding Level of Care Code ED Confidential Secretary for Kaylin Jeffers
[2022-06-24 16:15] VITALS: BP 144/104; PULSE 72; RESP 18; O2SAT 97
== END 2022-06-24 16:17 | disposition home or self-care (01) ==
PROVIDERS: Emergency Provider Student in an Organized Health Care Education/Training Program; PCP Family Medicine
DX: S61.210A Laceration without foreign body of right index finger without damage to nail, initial encounter (principal); Z87.891 Personal history of nicotine dependence; X58.XXXA Exposure to other specified factors, initial encounter; Z23 Encounter for immunization
CPT/HCPCS: 12001; 90471; 90715; 99282

== ENCOUNTER 2024-01-31 11:02 | Outpatient (CLI) | payer MEDICARE, SELFPAY ==
--- NOTE | 2024-01-31 11:07 | XR_ITS ---
WS: [id number] Exam: XR lumbar spine 2-3V* [id number] Date/Time of Exam: 01/31/2024 11:29 AM Reason For Exam: back pain Comparison 09/21/2018. No fracture or dislocation. Disc spaces are preserved. Posterior elements are intact. No scoliosis. S lightly increased lumbar lordosis. XR/XR lumbar spine 2-3V* [id number] IMPRESSION: 1. Slightly increased lumbar lordosis otherwise normal lumbar spine study.
[2024-01-31 11:27] LABS: Basophils # 0.1 10^3/uL (0.0-0.1); Basophils % 0.7 %; Eosinophils # 0.2 10^3/uL (0.0-0.8); Eosinophils % 2.5 %; Hematocrit 40.3 % (36-47); Lymphocytes # 2.3 10^3/uL (0.8-4.8); Lymphocytes % 34.3 %; Mean Corpuscular HGB Conc 33.7 g/dL (30-55); Mean Corpuscular Hemoglobin 31.1 pg (27-33); Mean Corpuscular Volume 92.2 fl (85-98); Mean Platelet Volume 9.1 fL (7.4-10.4); Monocytes # 0.4 10^3/uL (0.2-0.9); Monocytes % 6.1 %; Neutrophils # 3.72 10^3/uL (1.8-7.7); Nucleated Red Blood Cells % 0 %; Platelet Count 346 10^3/cmm (157-399); Red Blood Count 4.37 10^6/uL (3.85-5.65); Red Cell Distribution Width 12.3 % (12.1-15.1); White Blood Count 6.67 10^3/uL (3.29-11.43)
[2024-01-31 11:51] LABS: Alanine Aminotransferase 19 U/L (0-33); Albumin Level 4.2 g/dL (3.5-5.2); Alkaline Phosphatase 68 U/L (35-105); Anion Gap 15.3 (5-19); Aspartate Amino Transferase 16 U/L (0-32); Blood Urea Nitrogen 15 mg/dL (6-20); Carbon Dioxide 25 mmol/L (22-29); Chloride 104 mmol/L (98-107); Chol HDL Ratio 4.17 mg/dL (0.0-4.40); Cholesterol 150 mg/dL (0-200); Globulin 3.3 g/dL (1.3-4.6); Glomerular Filtration Rate 90.9 mL/min (90-130); Glucose 104 mg/dL (65-115); HDL Cholesterol 36 mg/dL (60-100); LDL Cholesterol Calculated 94 mg/dL (50-129); LDL HDL Ratio 2.61 RATIO (0.00-3.22); Osmolality Calculated 291 mOsm/kg (285-295); Potassium 4.3 mmol/L (3.5-5.1); Sodium 140 mmol/L (136-145); Total Bilirubin 0.3 mg/dL (0.15-1.2); Total Protein 7.5 g/dL (6.6-8.7); Triglycerides 102 mg/dL (0-150)
== END 2024-01-31 11:03 | disposition home or self-care (01) ==
LOC: LAB 11:05
PROVIDERS: PCP Family Medicine; Visit Provider Pediatrics
DX: M54.50 Low back pain, unspecified (principal); G89.29 Other chronic pain; Z76.89 Persons encountering health services in other specified circumstances; Z13.6 Encounter for screening for cardiovascular disorders
CPT/HCPCS: 36415; 72100; 80053; 80061; 85025

== ENCOUNTER 2024-02-04 12:44 | Emergency (ER) | payer MEDICARE, SELFPAY ==
[2024-02-04 13:45] VITALS: BP 108/67; PULSE 72; RESP 18; TEMP 36.7; O2SAT 97; BMI 37.3
[2024-02-04 14:21] VITALS: RESP 16
--- NOTE | 2024-02-04 14:46 | ED_ITS ---
HPI - General Adult General: Chief complaint: Allergic Reaction Stated complaint: left arm pain, medicine reaction Time Seen by Provider: 02/04/24 14:20 Source: patient Mode of arrival: ambulatory Limitations: no limitations History of Present Illness: Patient is a 44-year-old female here requesting something for her lower back and hip pain as well as bilateral wrist/carpal tunnel pain. She states all of this pain is chronic. She recently saw PCP who put her on meloxicam. She states when she took this medication it caused her hands and chest to hurt. She states after stopping this medication all of her symptoms went away. She has not had any episodes of chest pain in several days. She states she wants something else to treat her pain. States she used to brace her wrists at night but does not do this any longer. She has plans to follow-up with primary care for further evaluation. Onset (ago): day(s) Severity: mild Relieving factors: none Exacerbating factors: medication Associated symptoms: Deny chest pain (none currently), dyspnea, headache(s), malaise, nausea, rash, palpitations, syncope or vomiting Treatments prior to arrival: none Related Data Home Medications Medication Instructions Recorded Confirmed albuterol sulfate 90 mcg/actuation 2 puff inhalation Q6H PRN 08/26/20 01/30/24 aerosol inhaler (Ventolin HFA) Shortness Of Breath fluticasone propionate 50 1 spray intranasal BID 08/26/20 01/30/24 mcg/actuation nasal spray,suspension (Allergy Relief (fluticasone)) Previous Rx's Medication Instructions Recorded methocarbamol 750 mg tablet 750 mg PO Q8H PRN Back muscle pain 01/20/22 and spasms #20 tabs hydroxyzine HCl 50 mg tablet 50 mg PO QID PRN anxiety #120 tabs 09/25/23 propranolol 20 mg tablet 20 mg PO BID PRN anxiety #60 tabs 09/25/23 sertraline 100 mg tablet 100 mg PO DAILY #30 tabs 09/25/23 trazodone 100 mg tablet 100 mg PO .HS PRN insomnia #30 tabs 09/25/23 famotidine 20 mg tablet (Pepcid) 20 mg PO DAILY #30 tabs 01/30/24 diclofenac sodium 50 mg 50 mg PO Q12H PRN pain #20 tabs 02/04/24 tablet,delayed release Allergies Allergy/AdvReac Type Severity Reaction Status Date / Time Penicillins Allergy Severe hives as Verified 02/04/24 13:52 child Review of Systems Const: Denies: fever(s), chills, body aches, fatigue or malaise Card: Denies: chest pain (none currently), palpitations, irregular heart rhythm, edema, lightheadedness, syncope, pre-syncope, dyspnea on exertion or orthopnea Resp: Denies: dyspnea GI: Denies: abdominal pain, nausea or vomiting Musc: Reports: back pain (chronic) and joint pain (bilateral wrists) Skin/Breast: Denies: rash Neuro: Denies: headache(s) or dizziness PFSH ED PFSH: Medical History Encounter to establish care Screening mammogram for breast cancer Screening for cardiovascular condition Psychiatric care No pertinent family history GERD without esophagitis Social History Smoking and tobacco/nicotine status: never used tobacco/nicotine Quit status (tobacco/nicotine): has quit using Year quit tobacco: 2004 Second hand smoke exposure: Yes Alcohol intake: former Year of sobriety/quit date alcohol: 2004 Current gender identity: Female Female Reproductive History: Date of last menstrual period: 02/01/24 Physical Exam Const: COMMON NORMALS: no acute distress, patient oriented x3, no limitations, alert and well nourished GENERAL APPEARANCE: cooperative Resp: COMMON NORMALS: normal respiratory effort and clear to auscultation bilaterally AUSCULTATION: clear to auscultation bilaterally Cardio: COMMON NORMALS: regular rate and regular rhythm RATE: regular rate RHYTHM: regular rhythm GI: COMMON NORMALS: Normal to inspection, nondistended, normoactive bowel sounds present, Soft to palpation, non-tender and no masses PALPATION: Yes Soft to palpation : COMMON NORMALS: Yes no CVA tenderness BLADDER/KIDNEY EXAM: Yes no CVA tenderness Back/Pelvis: COMMON NORMALS: no CVA tenderness and straight leg raise negative bilaterally THORACIC SPINE/UPPER BACK: No thoracic spinal tenderness LUMBAR SPINE/LOWER BACK: Yes lumbar spinal tenderness PELVIS: Yes buttocks normal SACRUM: no tenderness COCCYX: no tenderness Extremity: GENERAL: Yes normal exam except as noted Neuro: COMMON NORMALS: patient oriented x3, moves all extremities, no focal motor deficits and no sensory deficits noted SENSORIUM/ORIENTATION: Yes alert Course Vital Signs: Vital signs: Vital Signs Temperature 98.1 F 02/04/24 13:45 Pulse Rate 72 02/04/24 13:45 Respiratory Rate 16 02/04/24 14:21 Blood Pressure 108/67 02/04/24 13:45 Pulse Oximetry 97 02/04/24 13:45 Oxygen Delivery Me thod Room Air 02/04/24 14:21 MDM - General Adult Medical Decision Making Discussed workup for her chest pain however patient adamantly declines. She states she wants something different than her meloxicam. Thinks maybe she has been on diclofenac in the past so we will switch her to this. Ultimately her lower back pain and carpal tunnel discomfort are chronic and she can follow-up with primary care for these. Return to ED precautions given. Medical Records I reviewed the patient's medical records. Lab Data I reviewed the patient's lab results. No radiology studies performed this visit Discharge Plan Discharge Patient Disposition: Home Clinical Impression: Low back pain Qualifiers: Chronicity: unspecified Back pain laterality: unspecified Sciatica presence: without sciatica Qualified Code(s): M54.50 - Low back pain, unspecified Carpal tunnel syndrome Qualifiers: Laterality: bilateral Qualified Code(s): G56.03 - Carpal tunnel syndrome, bilateral upper limbs Condition: Stable Prescriptions: New diclofenac sodium 50 mg tablet,delayed release (DR/EC) 50 mg PO Q12H PRN (Reason: pain) Qty: 20 0RF Discontinued meloxicam 7.5 mg tablet 7.5 mg PO DAILY Qty: 30 0RF No Action fluticasone propionate [Allergy Relief (fluticasone)] 50 mcg/actuation spray,suspension 1 spray intranasal BID Rx Instructions: administer into each nostril albuterol sulfate [Ventolin HFA] 90 mcg/actuation HFA aerosol inhaler 2 puff inhalation Q6H PRN (Reason: Shortness Of Breath) famotidine [Pepcid] 20 mg tablet 20 mg PO DAILY Qty: 30 0RF hydroxyzine HCl 50 mg tablet 50 mg PO QID PRN (Reason: anxiety) Qty: 120 11RF propranolol 20 mg tablet 20 mg PO BID PRN (Reason: anxiety) Qty: 60 11RF sertraline 100 mg tablet 100 mg PO DAILY Qty: 30 11RF trazodone 100 mg tablet 100 mg PO .HS PRN (Reason: insomnia) Qty: 30 11RF methocarbamol 750 mg tablet 750 mg PO Q8H PRN (Reason: Back muscle pain and spasms) Qty: 20 0RF Discharge Orders: Discharge ED (Routine); Ordered 02/04/24 Ordered By: Julia Dominique Referrals: Frankie Polo DO [Primary Care Provider] - Activity Restrictions/Additional Instructions: As we discussed, you can continue to follow-up with your primary care provider for further evaluation of your carpal tunnel and lower back pains. You have declined any workup from the emergency department regarding your chest pain that you had a few days ago. You need to return to the emergency department for onset of chest pain, shortness of breath, or difficulty breathing. Stand Alone Forms: Work/School Release Coding Level of Care Code ED Client Support 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
== END 2024-02-04 15:10 | disposition home or self-care (01) ==
PROVIDERS: Emergency Provider Physician Assistant; PCP Family Medicine
DX: M54.50 Low back pain, unspecified (principal); G56.03 Carpal tunnel syndrome, bilateral upper limbs; Z87.891 Personal history of nicotine dependence
CPT/HCPCS: 99283

== ENCOUNTER → 2024-03-03 14:15 | Outpatient (BNVA) | payer MEDICARE, MEDICAID, SELFPAY | PROVIDERS: PCP Family Medicine | DX: R63.5 Abnormal weight gain (principal) | CPT/HCPCS: 80053 ==

== ENCOUNTER 2024-11-15 06:44 | Emergency (ER) | payer OTHER, MEDICAID, SELFPAY ==
[2024-11-15] VITALS (10 sets, daily range): BP systolic 108–182; BP diastolic 67–84; PULSE 64–66; RESP 17–18; TEMP 36.8; O2SAT 95–98; BMI 38.4
--- OUTSIDE RECORDS SUMMARY | 2024-11-15 06:59 | XMS_ITS | Continuity of Care Document ---
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 Lab None record ed. Referral None record ed. Procedures None record ed. Surgeries None record ed. Imaging None record ed. Medication Orders None record ed. Patient TargetsNo targets recorded. Patient InstructionsNo instructions recorded. Reason for Referral None Reported. Problems Name Problem SNOMED Code Status Onset Date Resolution Date Notes Provider Name and Address Organization Details Recorded Time Colposcopy Active 2002 Colposco py; 1999; 01/05/20 03 1:19PM by Hal Craven MD, Office Visit; Promoted ; acuity set as *; Not Available [employer] 3 03:10:41 Mixed anxiety and depressive disorder 546186765 Active 2022 KEAGAN reese [facility], L.L.CSharon 3 14:56:27 Hypercholes terolemia 15634579 Active 2022 KEAGAN reese [facility], L.L[facility]aron 3 14:56:35 Type 2 diabetes mellitus 25997339 [facility] 14:57:28 Gastroesoph ageal reflux disease 740960201 [facility] 3 14:57:54 Allergic rhinitis 94757340 [facility] 20[facility] 3 14:58:29 Carpal tunnel syndrome 27979470 [facility] 20[facility] 3 15:03:29 Insomnia 000368541 Active 2022 [facility] VOGT [facility] 3 15:23:52 Asthma 723939904 Active 2022 [facility] 3 15:24:59 Panic disorder 018298734 Active 2022 [facility] VOGT [facility] 3 15:25:20 Problem Notes None recorded. Procedures Surgical History Date Name Laterality Status Provider Name and Address Organization Details Recorded Time Tubal Ligation completed KEAGAN YAO [facility] 04/16/2023 15:03:00 Imaging Results None recorded. Procedure Notes None recorded. Medical Equipment None Reported. Allergies Allergen ID Allergen Name Allergen Category Reaction Reaction Severity Criticality Documentation Date Start Date Code Code System Note Provider Name and Address Organization Details Recorded Time 07134 Product containin g penicilli n (product) medicatio n hives Not available Not available 11/24/2022 41234 8001 SNOMED React ion: Hives ; Comme nt: Recor ded 01/04 1:15 PM by Curly mitchell MD, Offic e Visit ; Promo denise; Signi ficcarola ce: *; ; Not Available [facility] 3 02:28:45 50878 strawberr y allergeni c extract food Not available Not available Not available 04/16/2023 95482 4 RxNorm KEAGAN YAO [facility], [facility] 3 14:53:59 Medications Name Sig Start Date Stop Date Status Note LastModified by Organization Details LastModified Time accu-chek guide test strips strp active Not Available Not Available Not Available trazodone 50 mg tablet TAKE TWO TABLETS BY MOUTH ONCE DAILY AT BEDTIME NEEDED FOR INSOMNIA 03/29 completed Not Available Not Available Not Available fluconazo le 150 mg tablet TAKE ONE TABLET BY MOUTH ONCE 11/09 completed Not Available Not Available Not Available sucralfat e 1 gram tablet TAKE ONE TABLET BY MOUTH TWICE DAILY ON AN EMPTY STOMACH ONE HOUR BEFORE MEALS AND AT BEDTIME active Not Available Not Available No t Available Tubersol 5 tub. unit/0.1 mL intraderm al injection solution Inject 0.1 mL by intrader mal route. 2024 active Not Available Not Available Not Avai lable sertralin e 100 mg tablet TAKE 1 TABLET BY MOUTH EVERY DAY active Not Available Not Available No t Available Accu-Chek Softclix Lancets active Not Available Not Available Not Available hydroxyzi ne HCl 50 mg tablet TAKE 1 TABLET BY MOUTH FOUR TIMES A DAY NEEDED FOR ANXIETY active Not Available Not Available No t Available ondansetr on 8 mg disintegr ating tablet PLACE 1 TABLET UNDER TONGUE EVERY 8 HOURS active Not Available Not Available No t Available pantopraz ole 20 mg tablet,de layed release TAKE ONE TABLET BY MOUTH TWICE DAILY active Not Available Not Available No t Available trazodone 100 mg tablet TAKE 1 TABLET BY MOUTH EVERY DAY AT BEDTIME NEEDED FOR INSOMNIA active Not Available Not Available No t Available pantopraz ole 40 mg tablet,de layed release TAKE 1 TABLET BY MOUTH ONCE DAILY 03/29 completed Not Available Not Available Not Available monteluka st 10 mg tablet TAKE ONE TABLET BY MOUTH ONCE DAILY IN THE EVENING active Not Available Not Available No t Available albuterol sulfate HFA 90 mcg/actua tion aerosol inhaler INHALE 2 PUFFS BY MOUTH EVERY 4 TO 6 HOURS NEEDED active Not Available Not Available No t Available propranol ol 20 mg tablet TAKE 1 TABLET BY MOUTH TWICE A DAY NEEDED FOR ANXIETY active Not Available Not Available No t Available Zoloft 25 mg tablet QD 03/29 completed Recorded 01/05/20 03 1:50PM by Hal Craven MD, Office Visit; Not Available Not Available Not Available cefdinir 300 mg capsule TAKE 1 CAPSULE BY MOUTH EVERY 12 HOURS FOR 7 DAYS 11/09 completed Not Available Not Available Not Available fluticaso ne propionat e 50 mcg/actua tion nasal spray,irlanda pension USE 1 SPRAY IN EACH NOSTRIL TWICE DAILY NEEDED active Not Available Not Available No t Available sertralin e 50 mg tablet TAKE ONE TABLET BY MOUTH ONCE DAILY FOR FOURTEEN DAYS THEN INCREASE TO TWO TABLETS DAILY 04/16 completed Not Available Not Available Not Available doxycycli ne hyclate 100 mg tablet TAKE ONE TABLET BY MOUTH TWICE DAILY 11/09 completed Not Available Not Available Not Available neomycin- polymyxin -hydrocor t 3.5 mg-10,000 unit/mL-1 % ear drops,irlanda p INSTILL 4 DROPS IN THE AFFECTED EAR(S) THREE TIMES DAILY 03/29 completed Not Available Not Available Not Available ciproflox acin 0.3 %-dexamet hasone 0.1 % ear drops,irlanda pension INSTILL 4 DROPS IN BOTH EAR(S) TWICE DAILY FOR 7 DAYS 03/29 completed Not Available Not Available Not Available rosuvasta tin 10 mg tablet active Not Available Not Available Not Available Flovent HFA 110 mcg/actua tion aerosol inhaler INHALE 1 PUFF BY MOUTH TWICE DAILY active Not Available Not Available No t Available Symbicort 160 mcg-4.5 mcg/actua tion HFA aerosol inhaler INHALE 2 PUFFS BY MOUTH TWICE DAILY IN THE MORNING AND IN THE EVENING active Not Available Not Available No t Available Claritin- D QD 03/29 completed Recorded 01/05/20 03 1:51PM by Hal Crvaen MD, Office Visit; Not Available Not Available Not Available Vitals None Recorded Social History Question Answer Notes LastModified by Organizat ion Details LastModified Time Tobacco Smoking Status Former Smoker KEAGAN CHICA YAO [facility], [facility] 04/16/2023 15:02:42 What Was The Date Of Your Most Recent Tobacco Screening? 11/09/2024 [email or web address] Information not available 11/09/2024 Sex: Unknown Functional Status None recorded. Mental Status None recorded. Family History Relationship Description Onset Age of this Age Resolved Age Notes LastModified by Organization Details LastModified Time Father Heart disease DVT. Passed [email or web address] Not available 04/16/2023 15:00:33 Father Diabetes mellitus [email or web address] Not available 03/29 15:01:07 Maternal Grandmother Diabetes mellitus [email or web address] Not available 03/29 14:59:24 Maternal Grandmother Cerebrovascu lar accident [email or web address] Not available 1 06/17/2022 14:59:36 Maternal Grandmother Deep venous thrombosis [email or web address] Not available 15:00:03 Mother Hypertensive disorder [email or web address] Not available 2022 15:27:28 Medical History Condition Response Coronary Artery Disease N Other N Gout N Kidney Stones N Blood Diseases N Hyperthyroidism N Breast Cancer N Blood Transfusion N Depression N Hypothyroidism N Lung Disease N COPD N Developmental or Behavioral Disorders N Defects or Inherited Disease N Breast Problem N Difficulty Swallowing N Anesthesia Complications N Anxiety Disorder Y Meniere's disease N Muscle, Joint, or Bone Problems N Vision or Eye Problems N Arthritis N Infertility N Polyps N Cancer N Stroke N Varicosities N Endometriosis N Bladder or Kidney Problems N High Cholesterol Y Liver Disease N Fibromyalgia N Headaches N Kidney Disease N Allergies/Hayfever N Heart Problems N Ear or Hearing Problems N Hospitalizations N Thyroid Problems N GI Problems N ADD/ADHD N Skin Problems N Eating Disorder N Anemia N Constipation N Mental Illness N Ovarian Cancer N Diabetes Y Bedwetting N Seizures/Epilepsy N Tuberculosis N Eczema N Diverticulitis N Abuse/Domestic Violence N Asthma N Reflux/GERD Y Hepatitis N Heart Disease N Pulmonary Embolism N Pre-Eclampsia N Hypertension N Chronic Ear Infections N Osteoporosis N Chicken Pox N Autism Spectrum Disorder (ASD) N Thrombophilias N Gynecological History Statement/Question Response Date of Last Pap Smear Date of LMP 04/15/2023 LMP Definite Obstetrics History GPAL:G 0 P 0 0 0 0 Immunizations Vaccine Type Date Status Note Provider Nam e and Address Organization Details Recorded Time IPV 1980 completed HARLEY PICKENS PA-C [address] [place], [address], [facility] 03/29/2023 16:23:33 IPV 09/07/1984 completed HARLEY PICKENS PA-C [address] [place], [address], [facility] 03/29/2023 16:23:33 IPV 09/20/1981 completed HARLEY PICKENS PA-C [address] [place], [address], [facility] 03/29/2023 16:23:33 IPV 1980 completed HARLEY PICKENS PA-C [address] [place], [address], [facility] 03/29/2023 16:23:33 IPV 1980 completed HARLEY PICKENS PA-C [address] [place], [address], [facility] 03/29/2023 16:23:33 MMR 09/20/1981 completed HARLEY PICKENS PA-C [address] [place], [address], [facility] 03/29/2023 16:23:33 COVID-19, mRNA, LNP-S, PF, 100 mcg/0.5mL dose or 50 mcg/0.25mL dose 12/30/2020 completed HARLEY PICKENS PA-C [address] [place], [address], [facility] 03/29/2023 16:23:33 COVID-19, mRNA, LNP-S, PF, 100 mcg/0.5mL dose or 50 mcg/0.25mL dose 01/26/2021 completed HARLEY PICKENS PA-C [address] [place], [address], [facility] 03/29/2023 16:23:33 COVID-19, mRNA, LNP-S, bivalent, PF, 50 mcg/0.5 mL or 25mcg/0.25 mL dose 04/05/2022 completed HARLEY PICKENS PA-C [address] [place], [address], [facility] 03/29/2023 16:23:33 Tdap 06/24/2022 completed HARLEY PICKENS PA-C [address] [place], [address], [facility] 03/29/2023 16:23:33 Tdap 11/13/2013 completed HARLEY PICKENS PA-C [address] [place], [address], [facility] 03/29/2023 16:23:33 DTaP 1980 completed HARLEY PICKENS PA-C [address] [place], [address], [facility] 03/29/2023 16:23:33 DTaP 1980 completed HARLEY PICKENS PA-C [address] [place], [address], [facility] 03/29/2023 16:23:33 DTaP 09/12/1984 completed HARLEY PICKENS PA-C [address] [place], [address], [facility] 03/29/2023 16:23:33 DTaP 09/20/1981 completed HARLEY PICKENS PA-C [address] [place], [address], [facility] 03/29/2023 16:23:33 DTaP 1980 completed HARLEY PICKENS PA-C [address] [place], [address], [facility] 03/29/2023 16:23:33 Influenza, split virus, quadrivalent, PF 03/05/2023 completed HARLEY PICKENS PA-C [address] [place], [address], [facility] 03/29/2023 16:23:33 Hep A-Hep B 06/28/2022 completed HARLEY PICKENS PA-C [address] [place], [address], [facility] 03/29/2023 16:23:33 Hep A-Hep B 03/27/2022 completed HARLEY PICKENS PA-C [address] [place], [address], [facility] 03/29/2023 16:23:33 Past Encounters Encounter ID Performer Location Encounter Start Date Encounter Closed Date Diagnosis/Indication Diagnosis SNOMED-CT Code Diagnosis ICD10 Code Diagnosis Note [id number] KODY MERCADO [facility] ([facility]) [address] [place] [address] 11/09/2024 10:33:45 11/09/2024 12:43:25 Tuberculosis screening status 294366090 Z11.1 PPD skin test administer ed today. Pt will return in 48-72 hours for a read. [id number] KODY MERCADO [facility] ([facility]) [address] [place] [address] 11/11/2024 13:21:58 11/11/2024 15:48:11 Health Concerns Section Related Observation LastModified by Organization Detai ls LastModified Time None Recorded Concern Status LastModified by Organization Details LastModified Time None Recorded Payers Encounter Date Sequence Insurance Name Policy Number Policy Baker Covered Member ID Baker Member ID Guarantor Name 11/11/2024 1 [facility] (MEDICARE REPLACEMENT/ ADVANTAGE - HMO) Gracielajovanni Jackson [id number] Graciela Jackson 11/11/2024 2 [place] Gracielajovanni Jackson [id number] Graciela Jackson Notes Date Note Type Note Provider Name and Address Organization Details Recorded Time 11/11/2024 text/html TB read nurse visit only BERNARD reese [facility]aron 11/11/2024 13:41:23 OBGyn Episode No OBEpisode recorded.
--- OUTSIDE RECORDS SUMMARY | 2024-11-15 06:59 | XMS_ITS | Data Portability ---
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 Lab PPD (purified protein derivative) , skin test 2024 025 [facility] ([facility] [address] [place] [address], [phone], 13:25:22 Referral None recorded. Procedures None recorded. Surgeries None recorded. Imaging None recorded. Medication Orders Tubersol 5 tub. unit/0.1 mL intradermal injection solution 2024 025 [email or web address] Not available 11:36:53 cefdinir 300 mg capsule 2023 024 [email or web address] [id number], [address], [place], [place], [id number], 10:48:39 Patient TargetsNo targets recorded. Patient InstructionsNo instructions recorded. Reason for Referral None Reported. Results Created Date Observation Date Name Description Value Unit Range Abnormal Flag Note LastModifiedBy Organization Detail LastModifiedTime 11/12/19 25 11/11/2024 PPD (tao fied prote in deriv ative ), skin test TB negati ve Not Available [facility] [address] [place] [address], [phone], 11/09/2024 11:04:07 Result Notes None recorded. Problems Name Problem SNOMED Code Status Onset Date Resolution Date Notes Provider Name and Address Organization Details Recorded Time Colposcopy Active 2002 Colposco py; 1999; 01/05/20 03 1:19PM by Hal Craven MD, Office Visit; Promoted ; acuity set as *; Not Available [facility] 3 03:10:41 Mixed anxiety and depressive disorder 912026758 Active 2022 KEAGAN YAO [facility] 3 14:56:27 Hypercholes terolemia 54687299 Active 2022 KEAGAN YAO [facility] 3 14:56:35 Type 2 diabetes mellitus 43486159 Active 2022 KEAGAN YAO [facility] 3 14:57:28 Gastroesoph ageal reflux disease 689608278 Active 2022 KEAGAN YAO [facility] 3 14:57:54 Allergic rhinitis 84696801 Active 2022 KEAGAN YAO [facility] 3 14:58:29 Carpal tunnel syndrome 55822335 Active 2022 KEAGAN YAO [facility] 3 15:03:29 Insomnia 094027760 Active 2022 CONSUELO VOGT [facility] 3 15:23:52 Asthma 115042645 Active 2022 CONSUELO VOGT [facility] [place] 3 15:24:59 Panic disorder 087258593 Active 2022 CONSUELO VOGT [facility] [place] 3 15:25:20 Problem Notes None recorded. Procedures Surgical History Date Name Laterality Status Provider Name and Address Organization Details Recorded Time Tubal Ligation completed KEAGAN YAO [facility], [place] 04/16/2023 15:03:00 Imaging Results None recorded. Procedure Notes None recorded. Medical Equipment None Reported. Allergies Allergen ID Allergen Name Allergen Category Reaction Reaction Severity Criticality Documentation Date Start Date Code Code System Note Provider Name and Address Organization Details Recorded Time 82802 Product containin g penicilli n (product) medicatio n hives Not available Not available 11/24/2022 46640 8001 SNOMED React ion: Hives ; Comme nt: Recor ded 01/04 1:15P M by Curly mitchell MD, Offic e Visit ; Promo denise; Signi ficcarola ce: *; ; Not Available [facility] 3 02:28:45 55803 strawberr y allergeni c extract food Not available Not available Not available 04/16/2023 66173 4 RxNorm KEAGAN YAO [facility], MaurisioLHarleen 3 14:53:59 Medications Name Sig Start Date [...] completed Recorded 01/05/20 03 1:51PM by Hal Craven MD, Office Visit; Not Available Not Available Not Available Vitals Date Recorded Body height Body mass index (BMI) Body weight Oxygen saturation Oxygen saturation in Arterial blood by Pulse oximetry Heart rate Respiratory rate Body temperature Systolic And Diastolic Provider Name and Address Organization Details Last Updated DateTime 4 167.64 cm 37.3 kg/m2 804415. 84 g 99 % 99 % 68 /min 15 /min 97.3 [degF] 138/82 mm[Hg] Gretchen Jenkins [facility] 4 15:53:28 Date Recorded Body height Body mass index (BMI) Body weight Body temperature Respiratory rate Oxygen saturation Oxygen saturation in Arterial blood by Pulse oximetry Heart rate Systolic And Diastolic Provider Name and Address Organization Details Last Updated DateTime 4 167.64 cm 37.4 kg/m2 963451. 43 g 97.3 [degF] 20 /min 98 % 98 % 75 /min 135/80 mm[Hg] Thi Lutz [facility] 4 13:08:23 Date Recorded Body height Body mass index (BMI) Body weight Oxygen saturation Oxygen saturation in Arterial blood by Pulse oximetry Heart rate Respiratory rate Body temperature Provider Name and Address Organization Details Last Updated DateTime 4 167.64 cm 37.3 kg/m2 691081. 12 g 98 % 98 % 68 /min 0 /min 97.8 [degF] Teressa Alfred [facility] 4 15:58:57 Date Recorded Body weight Body mass index (BMI) Body height Respiratory rate Oxygen saturation Oxygen saturation in Arterial blood by Pulse oximetry Heart rate Body temperature Systolic And Diastolic Provider Name and Address Organization Details Last Updated DateTime 5 751598. 84 g 37.3 kg/m2 167.64 cm 17 /min 96 % 96 % 61 /min 98.1 [degF] 132/86 mm[Hg] BERNARD CARABALLO [facility] 5 10:47:37 Social History Question Answer Notes LastModified by Organizat ion Details LastModified Time Tobacco Smoking Status [facility] 04/16/2023 15:02:42 What Was The Date Of Your Most Recent Tobacco Screening? 11/09/2024 [email or web address] Information not available 11/09/2024 Sex: Unknown Functional Status None recorded. Mental Status None recorded. Family History Relationship Description Onset Age of this Age Resolved Age Notes LastModified by Organization Details LastModified Time Father Heart disease DVT. Passed [email or web address] Not available 04/16/2023 15:00:33 Father Diabetes mellitus [email or web address] Not available 03/29 15:01:07 Maternal Grandmother Diabetes mellitus [email or web address] Not available 03/29 14:59:24 Maternal Grandmother Cerebrovascu lar accident [email or web address] Not available 1 06/17/2022 14:59:36 Maternal Grandmother Deep venous thrombosis [email or web address] Not available 15:00:03 Mother Hypertensive disorder [email or web address] Not available 2022 15:27:28 Medical History Condition [...] IPV 1980 completed HARLEY PICKENS PA-C [address] [place], [address], [facility] 03/29/2023 16:23:33 IPV 09/07/1984 katherine PICKENS PA-C [address] [place], [address], [facility], LSharonLSharonCSharon 03/29/2023 16:23:33 IPV 09/20/1981 katherine PICKENS PA-C [address] [place], [address], [facility], MaurisioLSharonCSharon 03/29/2023 16:23:33 IPV 1980 katherine PICKENS PA-C [address] [place], [address], [facility], [place] 03/29/2023 16:23:33 IPV 1980 katherine PICKENS PA-C [address] [place], [address], [facility] 03/29/2023 16:23:33 MMR 09/20/1981 completed HARLEY PICKENS PA-C [address] [place], [address], [facility] 03/29/2023 16:23:33 COVID-19, mRNA, LNP-S, PF, 100 mcg/0.5mL dose or 50 mcg/0.25mL dose 12/30/2020 completed HARLEY PICKENS PA-C [address] [place], [address], [facility] 03/29/2023 16:23:33 COVID-19, mRNA, LNP-S, PF, 100 mcg/0.5mL dose or 50 mcg/0.25mL dose 01/26/2021 completed HARLEY PICKENS PA-C [address] [place], [address], [facility] 03/29/2023 16:23:33 COVID-19, mRNA, LNP-S, bivalent, PF, 50 mcg/0.5 mL or 25mcg/0.25 mL dose 04/05/2022 completed HARLEY PICKENS PA-C [address] [place], [address], [facility] 03/29/2023 16:23:33 Tdap 06/24/2022 completed HARLEY PICKENS PA-C [address] [place], [address], [facility] 03/29/2023 16:23:33 Tdap 11/13/2013 completed HARLEY PICKENS PA-C [address] [place], [address], [facility] 03/29/2023 16:23:33 DTaP 1980 completed HARLEY PICKENS PA-C [address] [place], [address], [facility] 03/29/2023 16:23:33 DTaP 1980 completed HARLEY PICKENS PA-C [address] [place], [address], [facility] 03/29/2023 16:23:33 DTaP 09/12/1984 completed HARLEY PICKENS PA-C [address] [place], [address], [facility] 03/29/2023 16:23:33 DTaP 09/20/1981 completed HARLEY PICKENS PA-C [address] [place], [address], [facility] 03/29/2023 16:23:33 DTaP 1980 completed HARLEY PICKENS PA-C [address] [place], [address], [facility] 03/29/2023 16:23:33 Influenza, split virus, quadrivalent, PF 03/05/2023 completed HARLEY PICKENS PA-C [address] [place], [address], [facility] 03/29/2023 16:23:33 Hep A-Hep B 06/28/2022 completed HARLEY PICKENS PA-C [address] [place], [address], [facility] 03/29/2023 16:23:33 Hep A-Hep B 03/27/2022 completed HARLEY PICKENS PA-C [address] [place], [address], [facility], [place] 03/29/2023 16:23:33 Past Encounters Encounter ID Performer Location Encounter Start Date Encounter Closed Date Diagnosis/Indication Diagnosis SNOMED-CT Code Diagnosis ICD10 Code Diagnosis Note [id number] HARLEY PICKENS PA-C [facility] ([facility]) [address] [place] [phone] 03/29/2023 15:47:49 03/29/2023 17:32:32 Abdominal pain 73784308 R10.9 Nausea, vo miting and diarrhea 4330777 R11.2 Gastroesop hageal reflux disease 137771606 K21.9 continue with her PPI and sulcrafate . If Dr. Trevino thinks she needs EGD can get her set up [id number] Vinita Trevino MD [facility] ([facility]) [address] [place] [address] 04/16/2023 13:57:06 04/16/2023 15:55:58 Adult health examination 270209642 Z00.00 Screening mammography 24 585597 Z12.31 pt is overdue Patient ne w to provider 0310237052 91420 Z76.89 Hyperlipid emia screening 144329899 Z13.220 w dm likely needs statin - she is not currently on one. Type 2 lenard betes mellitus 43684248 E11.9 per pt, watches diet, not on any meds for it. Skin tag 418259216 L91.8 on right eyelid [id number] HARLEY PICKENS PA-C [facility] ([facility]) [address] [place] [phone] 06/14/2023 15:38:13 06/14/2023 16:02:31 Acute upper respiratory infection 80458815 J06.9 [id number] KODY KOEHLER [facility] ([facility]) [address] [place] [phone] 10/12/2023 12:46:58 10/12/2023 13:23:10 Acute suppurative otitis media without spontaneous rupture of ear drum 14387716 H66.413 [id number] KODY MERCADO [facility] ([facility]) [address] [place] [phone] 10/16/2023 15:46:18 10/16/2023 16:21:00 Acute suppurative otitis media without spontaneous rupture of ear drum 50776149 H66.001 Discussed to continue the cefdinir as prescribed . Pt is not having diarrhea but a stool color change. She vomited once this morning and left work early. Is asking for a note to return to work. [id number] KODY MERCADO [facility] ([facility]) [address] [place] [address] 11/09/2024 10:33:45 11/09/2024 12:43:25 Tuberculosis screening status 346704490 Z11.1 PPD skin test administer ed today. Pt will return in 48-72 hours for a read. [id number] KODY MERCADO [facility] ([facility]) [address] [place] [address] 11/11/2024 13:21:58 11/11/2024 15:48:11 Health Concerns Section Related Observation LastModified by Organization Detai ls LastModified Time None Recorded Concern Status LastModified by Organization Details LastModified Time None Recorded Advance Directives Directive None Recorded Payers Insurance Date Sequence Insurance Name Policy Number Policy Baker Covered Member ID Baker Member ID Guarantor Name 11/09/2024 1 [id number] Graciela Aubuchon [id number] Graciela Aubuchon 11/09/2024 1 [facility] (MEDICARE REPLACEMENT/ ADVANTAGE - HMO) Graciela Aubuchon [id number] Graciela Aubuchon 11/09/2024 3 [facility] (MEDICARE REPLACEMENT/ ADVANTAGE - HMO) [id number] Graciela Aubuchon [id number] Graciela Aubuchon 11/09/2024 2 [place] Graciela Aubuchon [id number] Graciela Aubuchon 11/09/2024 [place] [facility] [place] Graciela Aubuchon [id number] Graciela Aubuchon Notes Date Note Type Note Provider Name and Address Organization Details Recorded Time 06/14/2023 text/html FeverReported bypatient.Severity:hi ghest fever: (101F); same Duration:intermittent ; symptoms started 1 days ago; fever for less than 3 weeks Onset/Timing:first recorded: (yesterday morning); random onset Alleviating Factors:Tylenol Associated Symptoms:no vomiting; normal appetite; no shortness of breath; no nasal congestion/discharge; no sore throat; no fatigue;headache;diar cristal PICKENS PA-C [address] [place] [address], [phone], [facility], LSharonLSharonCSharon 06/14/2023 15:59:51 10/12/2023 text/html Ear Pain Brief HPIReported bypatient.Location:az in radiates to neck; right Onset/Timing:started 3days ago; intermittent pain Quality:no discharge from the ears; no burning;shooting pain;throbbing pain;aching pain;itching Severity:current pain 5/10; moderate pain;interferes with daily activities;interferes with ability to sleep Alleviating factors:OTC ear drops: ; NSAIDs Associated Symptoms:sense of fullness/pressure;dec reased hearing;muffled hearing; Ringing Walk In-She has been having some right sided ear pain bothering her for the past 3 days. It is throbbing & it feels like she is underwater. PCP-None currently KODY KOEHLER [address] [place] [address], [address], [facility], LIris 10/12/2023 13:18:21 10/16/2023 text/html EaracheReported bypatient.[facility] Quality:dull Severity:no change Context:history of ear aches/ear infections;swimming/w ater in earNotes:vomiting and diarrhea this morning Walk in clinicpatient reports her right ear ache starting a week ago. SHe was seen in the walk in clinic. she is back today reporting ear ache persisting and now having vomiting and diarrhea this morning. KODY MERCADO [address] [place], [address], 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 All have been negative. [facility], [address], [address], [facility], [place] 11/09/2024 12:26:11 11/11/2024 text/html TB read nurse vi sit only BERNARD reese [facility], [place] 11/11/2024 13:41:23 OBGyn Episode No OBEpisode recorded.
--- OUTSIDE RECORDS SUMMARY | 2024-11-15 06:59 | XMS_ITS | Continuity of Care Document ---
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 Plan of Treatment Reminders Order Date Submit Date Provider Last Modified By Organization Details Last Modified Time Details Appointments None recorded. Lab PPD (purified protein derivative) , skin test 2024 025 GENEVIEVE [facility] ([facility]), [address] [place], [address], 13:25:22 Referral None recorded. Procedures None recorded. Surgeries None recorded. Imaging None recorded. Medication Orders Tubersol 5 tub. unit/0.1 mL intradermal injection solution 2024 025 [email or web address] Not available 11:36:53 Patient TargetsNo targets recorded. Patient InstructionsNo instructions recorded. Reason for Referral None Reported. Results Created Date Observation Date Name Description Value Unit Range Abnormal Flag Note LastModifiedBy Organization Detail LastModifiedTime 11/12/1911/11/2024 PPD (tao fied prote in deriv ative ), skin test TB negati ve Not Available [facility] ([facility]) [address] [place], [address], 11/09/2024 11:04:07 Result Notes None recorded. Problems Name Problem SNOMED Code Status Onset Date Resolution Date Notes Provider Name and Address Organization Details Recorded Time Colposcopy Active 2002 Colposco py; 1999; 01/05/20 03 1:19PM by Hal Craven MD, Office Visit; Promoted ; acuity set as *; Not Available [facility] 3 03:10:41 Mixed anxiety and depressive disorder 327385268 Active 2022 KEAGAN CHICA [facility] 3 14:56:27 Hypercholes terolemia 88474774 Active [address] [facility] 3 14:56:35 Type 2 diabetes mellitus 83654150 Active 2022 KE[facility]AN YAO [facility] 3 14:57:28 Gastroesoph ageal reflux disease 670187423 Active [address] [facility] 3 14:57:54 Allergic rhinitis 58921048 Active 2022 KEAGAN CHICA [address] [facility] 3 14:58:29 Carpal tunnel syndrome 06890936 Active 2022 KEAGAN CHICA [address] [facility] 3 15:03:29 Insomnia 037791343 Active [address] [facility] 3 15:23:52 Asthma 841204769 Active [address] [facility] 3 15:24:59 Panic disorder 168718332 Active [address] [facility] 3 15:25:20 Problem Notes None recorded. Procedures Surgical History Date Name Laterality Status Provider Name and Address Organization Details Recorded Time Tubal Ligation completed KEAGAN YAO [facility] 04/16/2023 15:03:00 Imaging Results None recorded. Procedure Notes None recorded. Medical Equipment None Reported. Allergies Allergen ID Allergen Name Allergen Category Reaction Reaction Severity Criticality Documentation Date Start Date Code Code System Note Provider Name and Address Organization Details Recorded Time 55826 Product containin g penicilli n (product) medicatio n hives Not available Not available 11/24/2022 50296 8001 SNOMED React ion: Hives ; Comme nt: Recor ded 01/04 1:15P M by Curly mitchell MD, Offic e Visit ; Omkar walker; Laura mcfarland ce: *; ; Not Available [facility] 3 02:28:45 37160 strawberr y allergeni c extract food Not available Not available Not available 04/16/2023 72161 4 RxNorm KEAGAN YAO [facility] 3 14:53:59 Medications Name Sig Start Date [...] Available Not Available Vitals Date Recorded Body weight Body mass index (BMI) Body height Respiratory rate Oxygen saturation Oxygen saturation in Arterial blood by Pulse oximetry Heart rate Body temperature Systolic And Diastolic Provider Name and Address Organization Details Last Updated DateTime 183522. 84 g 37.3 kg/m2 167.64 cm 17 /min 96 % 96 % 61 /min 98.1 [degF] 132/86 mm[Hg] BERNARD CARABALLO [facility] 10:47:37 Social History Question Answer Notes LastModified by Organizat ion Details LastModified Time Tobacco Smoking Status Former Smoker [facility] 04/16/2023 15:02:42 What Was The Date Of Your Most Recent Tobacco Screening? 11/09/2024 Information not available 11/09/2024 Sex: Unknown Functional Status None recorded. Mental Status None recorded. Family History Relationship Description Onset Age of this Age Resolved Age Notes LastModified by Organization Details LastModified Time Father Heart disease DVT. Passed [email or web address] Not available 04/16/2023 15:00:33 Father Diabetes mellitus [email or web address] Not available 03/29 15:01:07 Maternal Grandmother Diabetes mellitus [email or web address] Not available 03/29 14:59:24 Maternal Grandmother Cerebrovascu lar accident [email or web address] Not available 1 06/17/2022 14:59:36 Maternal Grandmother Deep venous thrombosis [email or web address] Not available 15:00:03 Mother Hypertensive disorder [email or web address] Not available 2022 15:27:28 Medical History Condition [...] Time IPV 1980 completed HARLEY PICKENS PA-C [address] [place] [address], [address], [facility] 03/29/2023 16:23:33 IPV 09/07/1984 katherine PICKENS PA-C [address] [place], [address], [facility] 03/29/2023 16:23:33 IPV 09/20/1981 katherine PICKENS PA-C [address] [place], [address], [facility] 03/29/2023 16:23:33 IPV 1980 katherine PICKENS PA-C [address] [place], [address], [facility] 03/29/2023 16:23:33 IPV 1980 completed HARLEY PICKENS PA-C [address] [place], [address], [facility] 03/29/2023 16:23:33 MMR 09/20/1981 completed HARLEY PICKENS PA-C [address] [place], [address], [facility] 03/29/2023 16:23:33 COVID-19, mRNA, LNP-S, PF, 100 mcg/0.5mL dose or 50 mcg/0.25mL dose 12/30/2020 completed HARLEY PICKENS PA-C [address] [place], [address], [facility] 03/29/2023 16:23:33 COVID-19, mRNA, LNP-S, PF, 100 mcg/0.5mL dose or 50 mcg/0.25mL dose 01/26/2021 completed HARLEY PICKENS PA-C [address] [place], [address], [facility] 03/29/2023 16:23:33 COVID-19, mRNA, LNP-S, bivalent, PF, 50 mcg/0.5 mL or 25mcg/0.25 mL dose 04/05/2022 completed HARLEY PICKENS PA-C [address] [place], [address], [facility] 03/29/2023 16:23:33 Tdap 06/24/2022 completed HARLEY PICKENS PA-C [address] [place], [address], [facility] 03/29/2023 16:23:33 Tdap 11/13/2013 completed HARLEY PICKENS PA-C [address] [place], [address], [facility] 03/29/2023 16:23:33 DTaP 1980 completed HARLEY PICKENS PA-C [address] [place], [address], [facility] 03/29/2023 16:23:33 DTaP 1980 completed HARLEY PICKENS PA-C [address] [place], [address], [facility] 03/29/2023 16:23:33 DTaP 09/12/1984 completed HARLEY PICKENS PA-C [address] [place], [address], [facility] 03/29/2023 16:23:33 DTaP 09/20/1981 completed HARLEY PICKENS PA-C [address] [place], [address], [facility] 03/29/2023 16:23:33 DTaP 1980 completed HARLEY PICKENS PA-C [address] [place], [address], [facility] 03/29/2023 16:23:33 Influenza, split virus, quadrivalent, PF 03/05/2023 completed HARLEY PICKENS PA-C [address] [place], [address], [facility] 03/29/2023 16:23:33 Hep A-Hep B 06/28/2022 completed HARLEY PICKENS PA-C [address] [place], [address], [facility] 03/29/2023 16:23:33 Hep A-Hep B 03/27/2022 completed HARLEY PICKENS PA-C [address] [place], [address], [facility], Mikaela 03/29/2023 16:23:33 Past Encounters Encounter ID Performer Location Encounter Start Date Encounter Closed Date Diagnosis/Indication Diagnosis SNOMED-CT Code Diagnosis ICD10 Code Diagnosis Note [id number] KODY MERCADO [facility] [address] [place] [address] 11/09/2024 10:33:45 11/09/2024 12:43:25 Tuberculosis screening status 344900046 Z11.1 PPD skin test administer ed today. Pt will return in 48-72 hours for a read. Health Concerns Section Related Observation LastModified by Organization Detai ls LastModified Time None Recorded Concern Status LastModified by Organization Details LastModified Time None Recorded Payers Encounter Date Sequence Insurance Name Policy Number Policy Baker Covered Member ID Baker Member ID Guarantor Name 11/09/2024 1 [facility] (MEDICARE REPLACEMENT/ ADVANTAGE - HMO) Graciela Aubuchon [id number] Graciela Aubuchon 11/09/2024 2 [place] Graciela Aubuchon [id number] Graciela Aubuchon Notes Date Note Type Note Provider Name and Address Organization Details Recorded Time 11/09/2024 text/html walk-in; PCP Hillary Newton 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 All have been negative. KODY MERCADO [address] [place], [address], [facility], Mikaela 11/09/2024 12:26:11 OBGyn Episode No OBEpisode recorded.
--- NOTE | 2024-11-15 07:08 | W.ED.ABDPA2 ---
HPI - Abdominal Pain General: Chief Complaint: Abdominal Pain Stated Complaint: rigth side lower abdominal pain Time Seen by Provider: 11/15/24 06:57 History of Present Illness: This patient is a 44 year old presenting with abdominal pain, vomiting and diarrhea since last night. She notes most of the pain is on the right side. She is not sure if she has had a fever. The pain is constant but does get worse at time. She has only had her tubes tied as far as surgical history. She denies sick contacts. She is on stomach medicine for reflux and takes diclofenac for arthritis. She also reports a history of anxiety and high cholesterol. She is in obvious distress. Related Data Home Medications ?Medication ?Instructions ?Recorded ?Confirmed omeprazole 20 mg capsule,delayed 20 mg PO QAM 11/15/24 11/15/24 release Previous Rx's ?Medication ?Instructions ?Recorded Bilateral wrist brace #1 ea 03/10/24 sertraline 100 mg tablet 100 mg PO DAILY #30 tabs 04/03/24 trazodone 100 mg tablet 100 mg PO .HS PRN insomnia #30 tabs 04/03/24 propranolol 20 mg tablet 20 mg PO BID PRN anxiety #60 tabs 08/12/24 hydroxyzine HCl 50 mg tablet 50 mg PO QID PRN anxiety #120 tabs 09/03/24 montelukast 10 mg tablet 10 mg PO DAILY #30 tabs 09/03/24 rosuvastatin 10 mg tablet 10 mg PO DAILY #30 tabs 09/03/24 diclofenac sodium 75 mg 75 mg PO BID #60 tabs 09/18/24 tablet,delayed release fluticasone propionate 50 1 spray intranasal BID #16 grams 09/18/24 mcg/actuation nasal spray,suspension (Allergy Relief (fluticasone)) sucralfate 1 gram tablet 1 g PO BID #60 tabs 09/18/24 tizanidine 2 mg tablet 2 mg PO BID PRN muscle spasticity 10/05/24 #20 tabs albuterol sulfate 90 mcg/actuation See Rx Instructions .Route 11/12/24 aerosol inhaler .COMPLEX #6.7 grams oxycodone 5 mg tablet 10 mg (2 x 5 mg) PO Q4H PRN pain 11/15/24 #30 tabs promethazine 25 mg tablet 25 mg PO Q6H PRN nausea and 11/15/24 vomiting #20 tabs Allergies Allergy/AdvReac Type Severity Reaction Status Date / Time Penicillins Allergy Severe hives as Verified 09/18/24 11:33 child PFS ED PFS: Medical History (Updated 11/15/24 @ 11:35 by Fannie Muse MD) Borderline high blood pressure Chronic back pain greater than 3 months duration Scoliosis of lumbar spine Dyslipidemia Carpal tunnel syndrome, bilateral Obesity (BMI 30.0-34.9) Lordosis of lumbar region Carpal tunnel syndrome of right wrist Encounter to establish care Screening mammogram for breast cancer Screening for cardiovascular condition Psychiatric care No pertinent family history GERD without esophagitis Social History Smoking and tobacco/nicotine status: never used tobacco/nicotine Quit status (tobacco/nicotine): has quit using Year quit tobacco: 2004 Second hand smoke exposure: Yes Alcohol intake: former Year of sobriety/quit date alcohol: 2004 Current gender identity: Female Physical Exam Const: COMMON NORMALS: patient oriented x3 and alert GENERAL APPEARANCE: cooperative HENMT: HEAD & SCALP: normal to inspection FACE & SINUS: normal facial exam Eye: GENERAL EYE: appearance normal, both eyes and all related structures Neck/C-Spine: COMMON NORMALS: supple, no meningeal signs and no JVD Chest: COMMONS NORMALS: normal inspection of the chest Resp: COMMON NORMALS: normal respiratory effort, No use of accessory muscles and clear to auscultation bilaterally AUSCULTATION: clear to auscultation bilaterally Cardio: COMMON NORMALS: no JVD, regular rate, regular rhythm and No murmurs present (Cardio) RATE: regular rate RHYTHM: regular rhythm GI: INSPECTION: Yes abdominal distension and Yes central obesity AUSCULTATION: Yes Absent bowel sounds PALPATION: Yes Firmness to palpation present (GI), Yes Tenderness to palpation present (GI) Details: RLQ and RUQ and Yes Guarding due to palpation present (GI) in the RLQ and in the RUQ OTHER: limited special testing due to degree of pain Back/Pelvis: COMMON NORMALS: thoracic and lumbar spine normal to inspection OTHER: right CVA tenderness, mild Extremity: COMMON NORMALS: normal to inspection Neuro: COMMON NORMALS: patient oriented x3, moves all extremities, no focal motor deficits and no sensory deficits noted SENSORIUM/ORIENTATION: Yes alert MENINGEAL SIGNS: Yes no meningeal signs Psych: COMMON NORMALS: mental status grossly normal, cooperative and normal affect Skin: NARRATIVE SKIN EXAM: skin tags and acanthosis nigrans Course Vital Signs: Vital signs: Vital Signs Temperature 98.2 F 11/15/24 06:57 Pulse Rate 66 11/15/24 12:00 Respiratory Rate 17 11/15/24 07:53 Blood Pressure 119/68 11/15/24 12:00 Pulse Oximetry 95 11/15/24 12:00 Oxygen Delivery Me thod Room Air 11/15/24 09:13 MDM - Abdominal Pain Medical Decision Making Patient with significant pain, absent bowel sounds, right flank pain and only surgical history is BTL. IV morphine started - fluids given. Differential includes gallbladder, appendix, ovarian pathology, as well as renal colic and small bowel obstruction. Labs pending. CT pending. Large adnexal cyst on the CT - also appears to have some possible gallstones. Given the degree of pain and all the vomiting - I have concern that there could be torsion of the ovary so an US was done. This fortunately showed normal blood flow to the ovary. Small amount of free fluid in the pelvis. Discussed with Dr. 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 Requested that we add a CA-125 and provide pain control - he will see the patient in the office for follow up. Lab Data 11/15/24 07:20 11/15/24 07:20 Labs/Radiology: Radiology Impressions Abdomen/Pelvis CT 11/15/24 07:16 IMPRESSION: 1. New, large multi septated cystic right ovarian/adnexal mass measuring up to 13.5 cm. There are no strandy inflammatory changes surrounding this lesion. Consider further evaluation with pelvic ultrasound. 2. Mild hepatic steatosis and mild hepatomegaly. Transvaginal US 11/15/24 09:11 IMPRESSION: 1. No evidence of right ovarian torsion. 2. Large septated right ovarian cystic mass. Recommend follow-up ultrasound in 6 weeks. Laboratory Results WBC 9.90 10^3/uL (3.29-11.43) 11/15/24 07:20 RBC 4.58 10^6/uL (3.85-5.65) 11/15/24 07:20 Hgb 13.90 g/dL (11.27-16.99) 11/15/24 07:20 Hct 40.8 % (36-47) 11/15/24 07:20 MCV 89.1 fl (85-98) 11/15/24 07:20 MCH 30.3 pg (27-33) 11/15/24 07:20 MCHC 34.1 g/dL (30-55) 11/15/24 07:20 RDW 12.5 % (12.1-15.1) 11/15/24 07:20 Plt Count 339 10^3/cmm (157-399) 11/15/24 07:20 MPV 9.0 fL (7.4-10.4) 11/15/24 07:20 Neut % (Auto) 77.1 % 11/15/24 07:20 Lymph % (Auto) 17.5 % 11/15/24 07:20 Thomas % (Auto) 3.8 % 11/15/24 07:20 Eos % (Auto) 0.7 % 11/15/24 07:20 Baso % (Auto) 0.5 % 11/15/24 07:20 Neut # (Auto) 7.63 10^3/uL (1.8-7.7) 11/15/24 07:20 Lymph # (Auto) 1.7 10^3/uL (0.8-4.8) 11/15/24 07:20 Thomas # (Auto) 0.4 10^3/uL (0.2-0.9) 11/15/24 07:20 Eos # (Auto) 0.1 10^3/uL (0.0-0.8) 11/15/24 07:20 Baso # (Auto) 0.1 10^3/uL (0.0-0.1) 11/15/24 07:20 Nucleated RBC % (auto) 0 % 11/15/24 07:20 Nucleated RBCs # 0.0 /100WBC 11/15/24 07:20 Sodium 138 mmol/L (136-145) 11/15/24 07:20 Potassium 4.0 mmol/L (3.5-5.1) 11/15/24 07:20 Chloride 104 mmol/L (98-107) 11/15/24 07:20 Carbon Dioxide 20 mmol/L (22-29) L 11/15/24 07:20 Anion Gap 18.0 (5-19) 11/15/24 07:20 BUN 10 mg/dL (6-20) 11/15/24 07:20 Creatinine 0.7 mg/dL (0.5-0.9) 11/15/24 07:20 GFR Calculation 90.9 mL/min (90-130) 11/15/24 07:20 Glucose 151 mg/dL (65-115) H 11/15/24 07:20 Calculated Osmolality 288 mOsm/kg (285-295) 11/15/24 07:20 Lactic Acid 2.3 mmol/L (0.5-2.2) H 11/15/24 07:20 Lactic Acid (Sepsis) 1.7 mmol/L (0.5-2.2) 11/15/24 10:07 Calcium 9.1 mg/dL (8.5-10.5) 11/15/24 07:20 Total Bilirubin 0.4 mg/dL (0.15-1.2) 11/15/24 07:20 AST 15 U/L (0-32) 11/15/24 07:20 ALT 17 U/L (0-33) 11/15/24 07:20 Alkaline Phosphatase 69 U/L (35-105) 11/15/24 07:20 Total Protein 7.4 g/dL (6.6-8.7) 11/15/24 07:20 Albumin 4.1 g/dL (3.5-5.2) 11/15/24 07:20 Globulin 3.3 g/dL (1.3-4.6) 11/15/24 07:20 Lipase 22 U/L (13-60) 11/15/24 07:20 HCG, Qual Negative (Negative) 11/15/24 07:20 Urine Color Yellow (Yellow) 11/15/24 08:38 Urine Appearance Clear (CLEAR) 11/15/24 08:38 Urine pH 7.5 (5-7) 11/15/24 08:38 Ur Specific Bylas 1.044 (1.005-1.030) H 11/15/24 08:38 Urine Protein Negative (Negative) 11/15/24 08:38 Urine Glucose (UA) Negative (Normal) 11/15/24 08:38 Urine Ketones Negative (Negative) 11/15/24 08:38 Urine Blood Non-haemolysed trace (Negative) 11/15/24 08:38 Urine Nitrate Negative (Negative) 11/15/24 08:38 Urine Bilirubin Negative (Negative) 11/15/24 08:38 Urine Urobilinogen 0.2 mg/dL (Negative) 11/15/24 08:38 Ur Leukocyte Esterase Negative (Negative) 11/15/24 08:38 Urine RBC 0-2 /hpf (0-2) 11/15/24 08:38 Urine WBC 0-5 /hpf (0-5) 11/15/24 08:38 Ur Squamous Epith Cells 0-5 /hpf (0-5) 11/15/24 08:38 Amorphous Sediment Not Reportable 11/15/24 08:38 Urine Bacteria None seen /hpf (NONE) 11/15/24 08:38 Hyaline Casts 0-4 /lpf H 11/15/24 08:38 All radiology interpretation(s) finalized by discharge Discharge Plan Discharge Patient Disposition: Home Clinical Impression: Ovarian cyst, Acute right flank pain Condition: Stable Prescriptions: New oxycodone 5 mg tablet 10 mg PO Q4H PRN (Reason: pain) Qty: 30 0RF promethazine 25 mg tablet 25 mg PO Q6H PRN (Reason: nausea and vomiting) Qty: 20 0RF No Action (DME) Bilateral wrist brace See Rx Instructions .Route .MEDSUPPLY Qty: 1 0RF Rx Instructions: As directed propranolol 20 mg tablet 20 mg PO BID PRN (Reason: anxiety) Qty: 60 1RF sucralfate 1 gram tablet 1 g PO BID Qty: 60 2RF fluticasone propionate [Allergy Relief (fluticasone)] 50 mcg/actuation spray,suspension 1 spray intranasal BID Qty: 16 0RF Rx Instructions: administer into each nostril diclofenac sodium 75 mg tablet,delayed release (DR/EC) 75 mg PO BID Qty: 60 2RF trazodone 100 mg tablet 100 mg PO .HS PRN (Reason: insomnia) Qty: 30 11RF sertraline 100 mg tablet 100 mg PO DAILY Qty: 30 11RF rosuvastatin 10 mg tablet 10 mg PO DAILY Qty: 30 2RF hydroxyzine HCl 50 mg tablet 50 mg PO QID PRN (Reason: anxiety) Qty: 120 0RF montelukast 10 mg tablet 10 mg PO DAILY Qty: 30 2RF tizanidine 2 mg tablet 2 mg PO BID PRN (Reason: muscle spasticity) Qty: 20 0RF Rx Instructions: may take 2 to 3 times daily. albuterol sulfate 90 mcg/actuation HFA aerosol inhaler See Rx Instructions .ROUTE .COMPLEX Qty: 6.7 1RF Dose Instruction: INHALE TWO PUFFS EVERY 6 HOURS NEEDED FOR SHORTNESS OF BREATH Rx Instructions: INHALE TWO PUFFS EVERY 6 HOURS NEEDED FOR SHORTNESS OF BREATH omeprazole 20 mg capsule,delayed release(DR/EC) 20 mg PO QAM Discharge Orders: Discharge ED (Routine); Ordered 11/15/24 Ordered By: Fannie Muse Referrals: aryan [Other] Hillary Newton NP [Primary Care Provider, Family Practice] Akil Machado MD [Physician, [employer]] - 4-7 days Patient Instructions: Opioid Safety, Pain Management, Patient Portal & Madhu Instructions Activity Restrictions/Additional Instructions: Follow up with Dr. Machado for further management of the ovarian cyst and to discuss possible surgery if needed. Return to the ED for increased pain, fever, vomiting. Use the prescribed medicine as directed. You can also take tylenol - 2 extra stregth every 4 hours along with the pain medicine. Print Language: Upper Sorbian Coding Level of Care Code ED Consulting Group Analyst for Kaylin Jeffers
--- NOTE | 2024-11-15 07:16 | CTR_ITS ---
PROCEDURE INFORMATION: Exam: CT Abdomen And Pelvis With Contrast Exam date and time: 11/15/2024 7:56 AM Age: 44 years old Clinical indication: Abdominal pain; Localized; Right; Prior surgery; Surgery date: 6+ months; Surgery type: Tubal ligation; Additional info: Abdominal pain, vomiting TECHNIQUE: Imaging protocol: Computed tomography of the abdomen and pelvis with contrast. Radiation optimization: All CT scans at this facility use at least one of these dose optimization techniques: automated exposure control; mA and/or kV adjustment per patient size (includes targeted exams where dose is matched to clinical indication); or iterative reconstruction. Contrast material: OMNIPAQUE 350; Contrast volume: 100 ml; Contrast route: INTRAVENOUS (IV); COMPARISON: US pelv w/transvag [id number] 04/06/2020 3:52 PM RADIATION DOSE METRICS: Total DLP (mGy-cm): 1078.52 FINDINGS: Lungs: Minimal subsegmental atelectasis in the left lower lobe. Liver: Mild hepatic steatosis. No focal liver lesion appreciated. The liver is enlarged measuring about 19 cm. Gallbladder and biliary ducts: Numerous gallstones within the gallbladder. The gallbladder brown do not appear thickened at this time. The common bile duct is nondilated. Pancreas: The pancreas is normal in appearance. No evidence of pancreatic ductal dilatation. Spleen: The spleen is normal in appearance. Adrenal glands: The adrenal glands are normal in appearance. Kidneys and ureters: The kidneys are normal in appearance. No evidence of hydronephrosis or hydroureter. No nephroureteral calculi are identified. Stomach and bowel: The small bowel loops are not thickened and are nondilated. The colon is unremarkable. Appendix: The appendix is normal in appearance. No evidence of appendicitis. Intraperitoneal space: Unremarkable. No free air. No significant fluid collection. Vasculature: Unremarkable. No abdominal aortic aneurysm. Lymph nodes: Unremarkable. No enlarged lymph nodes. Urinary bladder: The urinary bladder is normal in appearance. Reproductive: There is a large multi septated cystic right ovarian/adnexal mass. This cystic mass measures about 10.2 x 13.5 x 11 cm. There are no strandy inflammatory changes surrounding the mass. Consider further evaluation with pelvic ultrasound. Bones/joints: Unremarkable. No acute fracture. Soft tissues: Small fat containing periumbilical hernia. CT/CT abdomen pelvis w con* [id number] IMPRESSION: 1. New, large multi septated cystic right ovarian/adnexal mass measuring up to 13.5 cm. There are no strandy inflammatory changes surrounding this lesion. Consider further evaluation with pelvic ultrasound. 2. Mild hepatic steatosis and mild hepatomegaly.
[2024-11-15] MEDS: ondansetron 2 mg/ML SDV 2 mL 4 MG IVP (07:24)
[2024-11-15] MEDS: morphine 4 mg/mL SDV 1 mL IVP (07:24)
[2024-11-15 07:27] LABS: Hematocrit 40.8 % (36-47); Hemoglobin 13.90 g/dL (11.27-16.99); Mean Corpuscular HGB Conc 34.1 g/dL (30-55); Mean Corpuscular Hemoglobin 30.3 pg (27-33); Mean Corpuscular Volume 89.1 fl (85-98); Nucleated Red Blood Cells % 0 %; Platelet Count 339 10^3/cmm (157-399); Red Blood Count 4.58 10^6/uL (3.85-5.65); White Blood Count 9.90 10^3/uL (3.29-11.43)
[2024-11-15 07:41] LABS: HCG, Serum Qual Negative (Negative)
[2024-11-15 07:45] LABS: Alanine Aminotransferase 17 U/L (0-33); Albumin Level 4.1 g/dL (3.5-5.2); Alkaline Phosphatase 69 U/L (35-105); Anion Gap 18.0 (5-19); Aspartate Amino Transferase 15 U/L (0-32); Blood Urea Nitrogen 10 mg/dL (6-20); Calcium 9.1 mg/dL (8.5-10.5); Carbon Dioxide 20 mmol/L (22-29); Chloride 104 mmol/L (98-107); Creatinine Clr Calc Pharmacy 127.5194; Globulin 3.3 g/dL (1.3-4.6); Glucose 151 mg/dL (65-115); Lipase 22 U/L (13-60); Osmolality Calculated 288 mOsm/kg (285-295); Potassium 4.0 mmol/L (3.5-5.1); Sodium 138 mmol/L (136-145); Total Protein 7.4 g/dL (6.6-8.7)
[2024-11-15 07:46] LABS: Lactic Sepsis W/Reflex 2.3 mmol/L (0.5-2.2)
[2024-11-15] MEDS: fentaNYL 50 mcg/mL INJ 2mL 100 MCG IVP (07:53)
[2024-11-15] MEDS: iohexol 350 mg/mL 500 mL Btl (per mL) IV (07:56)
[2024-11-15] MEDS: HYDROmorphone 0.5 MG/0.5 ML INJ IVP (08:28)
--- NOTE | 2024-11-15 09:11 | USR_ITS ---
PROCEDURE INFORMATION: Exam: US Pelvis, Transvaginal, Non-Obstetric Exam date and time: 11/15/2024 10:21 AM Age: 44 years old Clinical indication: Abnormal findings; Abnormal imaging test; Prior surgery; Surgery date: 6+ months; Surgery type: HX of tubal ligation; Additional info: Adnexal cyst - R/O torsion TECHNIQUE: Imaging protocol: Real-time transvaginal pelvic (non-obstetric) ultrasound with image documentation. Transvaginal imaging was used for better evaluation of the endometrium, adnexa, and/or cervix. COMPARISON: CT abdomen pelvis w con* [id number] 11/15/2024 7:56 AM FINDINGS: Uterus: The uterus is normal in size and shape. The endometrium is normal thickness measuring about 10 mm. Right ovary/adnexa: There is a large septated right ovarian cystic mass which measures about 11 x 10 x 11 cm by ultrasound. There are 2-3 septations within the cyst but no mural nodularity or hypervascularity associated with the septations. There is normal blood flow to the right ovary by Doppler and no suggestion of right ovarian torsion. Left ovary/adnexa: The left ovary was not visualized by ultrasound. Urinary bladder: Urinary bladder is limited. Intraperitoneal space: Trace free fluid in the cul-de-sac. US/US transvaginal [id number] IMPRESSION: 1. No evidence of right ovarian torsion. 2. Large septated right ovarian cystic mass. Recommend follow-up ultrasound in 6 weeks.
[2024-11-15 09:12] LABS: Reflex Lactate Order REFLEX LACTIC ORDERD
[2024-11-15 09:22] LABS: Glucose Urine UA Negative (Normal); Nitrate Urine Negative (Negative)
[2024-11-15 09:27] LABS: Add Urine Microscopic? YES
[2024-11-15 09:56] LABS: Specific Gravity, Urine 1.044 (1.005-1.030)
[2024-11-15 10:33] LABS: Lactic Acid level (Lactate) 1.7 mmol/L (0.5-2.2)
== END 2024-11-15 12:01 | disposition home or self-care (01) ==
PROVIDERS: Emergency Provider Emergency Medicine
DX: N83.201 Unspecified ovarian cyst, right side (principal)
CPT/HCPCS: 36415; 74177; 76830; 80053; 81001; 81500; 83605; 83690; 84703; 85025; 96374; 96375; 99285; J1171; J1885; J2270; J2405; J3010; J7030

== ENCOUNTER → 2024-12-03 08:24 | Outpatient (BNVA) | payer OTHER, MEDICAID, SELFPAY | PROVIDERS: Visit Provider Student in an Organized Health Care Education/Training Program | DX: R10.13 Epigastric pain (principal); K80.20 Calculus of gallbladder without cholecystitis without obstruction | CPT/HCPCS: 99204 ==

== ENCOUNTER 2024-12-10 10:24 | Day surgery (SDC) | payer OTHER, MEDICAID, SELFPAY ==
[2024-12-10 10:45] VITALS: BP 118/75; PULSE 75; RESP 16; TEMP 36.1; O2SAT 96; BMI 38.2
[2024-12-10 10:49] LABS: OR HCG Qualitative Urine Negative (Negative)
--- NOTE | 2024-12-10 11:50 | W.PM.OPSUD ---
Surgery/Procedure H&P Update DATE OF PROCEDURE: December 10, 2024 DATE H&P PERFORMED: 12/03/24 H&P UPDATE INFORMATION: I have reviewed H&P completed within last 30 days, I have examined patient prior to procedure and No changes to prior documentation PLANNED PROCEDURE: Operation Date: 12/10/24 12:00 Proposed Procedures p EGD EGD with Biopsy [id number], R12, R10.13(Not Applicable) - Akil Mike MD
--- NOTE | 2024-12-10 11:52 | ANES.PREANE2 ---
Pre-Anesthetic Assessment Height/Weight: Height 1.68 m Weight 107.501 kg Temp Pulse Resp BP Pulse Ox O2 Del Method 97 F L 75 16 118/75 96 Room Air 12/10/24 10:45 12/10/24 10:45 12/10/24 10:45 12/10/24 10:45 12/10/24 10:45 12/10/24 10:45 Operation Date: 12/10/24 12:00 Proposed Procedures p EGD EGD with Biopsy [id number], R12, R10.13(Not Applicable) - Akil Mike MD Familial anesthetic complications: none Was Beta Khoa taken within 24 hours: N/A Was Clonidine taken within 24 hours: N/A Last intake: Intake Last Liquid Date 12/09/24 Last Liquid Time 20:30 Last Solid Date 12/09/24 Last Solid Time 20:30 Social No alcohol and No tobacco Exam alert and oriented x 3 Airway Submandibular: within normal limits Cervical ROM: within normal limits Mallampati: Class I Dentition: false Pulmonary Asthma CV/HEM Hypertension None reported Hepatic None reported GI Gastroesophageal Reflux Disease Metabolic Diabetes Mellitus, Hyperlipidemia and Morbid Obesity [facility] None reported Neuropsych Anxiety and Depression Anesthetic Plan ASA status: 3 Anesthesia: Anesthesia Evaluation and MAC Medications/Allergies Home Medications ?Medication ?Instructions ?Recorded ?Confirmed ?Last Taken ?Type Bilateral wrist brace #1 ea 03/10/24 12/10/24 Unknown Rx trazodone 100 mg tablet 100 mg PO .HS PRN insomnia #30 tabs 04/03/24 12/10/24 12/09/24 Rx propranolol 20 mg tablet 20 mg PO BID PRN anxiety #60 tabs 08/12/24 12/10/24 12/10/24 Rx hydroxyzine HCl 50 mg tablet 50 mg PO QID PRN anxiety #120 tabs 09/03/24 12/10/24 12/10/24 Rx montelukast 10 mg tablet 10 mg PO DAILY #30 tabs 09/03/24 12/10/24 12/09/24 Rx diclofenac sodium 75 mg 75 mg PO BID #60 tabs 09/18/24 12/10/24 12/03/24 Rx tablet,delayed release fluticasone propionate 50 1 spray intranasal BID #16 grams 09/18/24 12/10/24 12/03/24 Rx mcg/actuation nasal spray,suspension (Allergy Relief (fluticasone)) tizanidine 2 mg tablet 2 mg PO BID PRN muscle spasticity 10/05/24 12/10/24 12/09/24 Rx #20 tabs promethazine 25 mg tablet 25 mg PO Q6H PRN nausea and 11/24/24 12/10/24 12/02/24 Rx vomiting #30 tabs albuterol sulfate 90 mcg/actuation 2 puff inhalation Q6H PRN 12/03/24 12/10/24 12/02/24 History aerosol inhaler Shortness Of Breath pantoprazole 40 mg tablet,delayed 40 mg PO BID 6 weeks #84 tabs 12/03/24 12/10/24 12/09/24 Rx release (Protonix) rosuvastatin 10 mg tablet 10 mg PO BEDTIME 12/03/24 12/10/24 12/09/24 History sertraline 100 mg tablet 100 mg PO BEDTIME 12/03/24 12/10/24 12/09/24 History sucralfate 100 mg/mL oral 10 ml PO BID 6 weeks #840 mL 12/03/24 12/10/24 12/09/24 Rx suspension Allergies Allergy/AdvReac Type Severity Reaction Status Date / Time Penicillins Allergy Severe hives as Verified 12/03/24 08:25 child Current Medications Generic Name Dose Route Start Last Admin Trade Name Freq PRN Reason Stop Dose Admin Sodium Chloride 1,000 mls @ 15 mls/hr 12/10/24 10:38 12/10/24 10:51 Sodium Chloride 0.9% IV 12/11/24 10:37 15 mls/hr .Q24H PRN Administration COLONOSCOPY FLUIDS PFSH Anesthesia Medical History (Updated 12/03/24 @ 09:08 by Akil Mike MD) Borderline high blood pressure Chronic back pain greater than 3 months duration Scoliosis of lumbar spine Dyslipidemia Carpal tunnel syndrome, bilateral Obesity (BMI 30.0-34.9) Lordosis of lumbar region Carpal tunnel syndrome of right wrist Encounter to establish care Screening mammogram for breast cancer Screening for cardiovascular condition Psychiatric care No pertinent family history GERD without esophagitis Social History Smoking and tobacco/nicotine status: former use of tobacco/nicotine Quit status (tobacco/nicotine): has quit using Year quit tobacco: 2004 Second hand smoke exposure: Yes Alcohol intake: former Year of sobriety/quit date alcohol: 2004 Current gender identity: Female Female Reproductive History Date of last menstrual period: 11/25/24
[2024-12-10 12:11] VITALS: BP 103/69; PULSE 72; RESP 17; TEMP 36.6; O2SAT 97
[2024-12-10 12:45] VITALS: BP 124/87; PULSE 75; RESP 16; O2SAT 97
--- NOTE | 2024-12-10 12:45 | ANE.PACU2 ---
Inpatient post-anesthesia follow up: Airway intact: Yes Vital signs: Temperature 98 F Pulse Rate 75 Respiratory Rate 16 Blood Pressure 124/87 Pulse Oximetry 97 Oxygen Delivery Me thod Room Air Oxygen Flow Rate Fraction of Inspir ed Oxygen Hydration adequate: Yes Nausea and vomiting: No Pain level: 1 Mental status: Baseline
== END 2024-12-10 12:45 | disposition home or self-care (01) ==
PROVIDERS: Student in an Organized Health Care Education/Training Program; Visit Provider Student in an Organized Health Care Education/Training Program
PROC: 0DJ08ZZ Inspection of Upper Intestinal Tract, Via Natural or Artificial Opening Endoscopic (ICD-10-PCS; principal; 2024-12-10 12:00)
DX: K29.30 Chronic superficial gastritis without bleeding (principal); R10.13 Epigastric pain; B96.81 Helicobacter pylori [H. pylori] as the cause of diseases classified elsewhere; Z87.891 Personal history of nicotine dependence; E78.5 Hyperlipidemia, unspecified; K21.9 Gastro-esophageal reflux disease without esophagitis; E11.9 Type 2 diabetes mellitus without complications; E66.01 Morbid (severe) obesity due to excess calories; Z68.38 Body mass index [BMI] 38.0-38.9, adult; F41.8 Other specified anxiety disorders
CPT/HCPCS: 43239; 81025; 88305; 88342; J2704; J7030

== ENCOUNTER → 2024-12-23 15:47 | Outpatient (BNVA) | payer MEDICARE, MEDICAID, SELFPAY | PROVIDERS: Visit Provider Obstetrics & Gynecology | DX: Z12.4 Encounter for screening for malignant neoplasm of cervix (principal); N83.8 Other noninflammatory disorders of ovary, fallopian tube and broad ligament | CPT/HCPCS: 85025; 86304; 87624 ==

== ENCOUNTER 2024-12-31 11:00 | Outpatient (CLI) | payer OTHER, MEDICAID, SELFPAY | END 2024-12-31 11:01 | disposition home or self-care (01) | LOC: RAD 01-02 10:49 | PROVIDERS: Visit Provider Family Medicine | DX: Z09 Encounter for follow-up examination after completed treatment for conditions other than malignant neoplasm (principal) | CPT/HCPCS: 99213 ==

== ENCOUNTER 2025-02-02 06:29 | Day surgery (SDC) | payer MEDICAID, OTHER, SELFPAY ==
[2025-02-02] VITALS (14 sets, daily range): BP systolic 84–118; BP diastolic 56–79; PULSE 67–86; RESP 16–18; TEMP 36.1–36.6; O2SAT 92–97; BMI 29.3
--- NOTE | 2025-02-02 02:25 | W.PM.OPSFHP ---
Same Day Surgery H&P Indication for Procedure/HPI DATE OF PROCEDURE: February 02, 2025 CHIEF COMPLAINT/INDICATIONFOR SURGICAL PROCEDURE: pelvic pain right ovarian cyst heavy menstrual bleeding PREOP DIAGNOSIS: ovarian cyst; heavy menstrual bleeding PLANNED PROCEDURE: Operation Date: 02/02/25 09:00 Proposed Procedures p Laparoscopic RIGHT Salpingo Oophorectomy 49352 23953 07633 64643 N83.8(Right) - Allen Michelle MD s Hysteroscopy w/ Endometrial Sampling(Not Applicable) - Allen Michelle MD s Possible Endometrial Poylpectomy(Not Applicable) - Allen Michelle MD s Endometriosis Cauterization Endometrial Ablation(Not Applicable) - Allen Michelle MD Medications/Allergies* Home Medications ?Medication ?Instructions ?Recorded ?Confirmed ?Type albuterol sulfate 90 mcg/actuation 2 puff inhalation Q6H PRN sob 02/01/25 02/01/25 History aerosol inhaler montelukast 10 mg tablet 10 mg PO DAILY 02/01/25 02/01/25 History rosuvastatin 10 mg tablet 10 mg PO DAILY 02/01/25 02/01/25 History Allergies/Adverse Reactions Allergy/AdvReac Type Severity Reaction Status Date / Time Penicillins Allergy Severe hives as Verified 12/31/24 13:09 child Pertinent History/Comorbid Conditions* Medical History (Updated 12/03/24 @ 09:08 by Akil Mike MD) Borderline high blood pressure Chronic back pain greater than 3 months duration Scoliosis of lumbar spine Dyslipidemia Carpal tunnel syndrome, bilateral Obesity (BMI 30.0-34.9) Lordosis of lumbar region Carpal tunnel syndrome of right wrist Encounter to establish care Screening mammogram for breast cancer Screening for cardiovascular condition Psychiatric care No pertinent family history GERD without esophagitis Family History (Updated 12/23/24 @ 14:50 by Ingris Urena CNA) Ovarian cancer Grandmother Diabetes Father Grandmother Heart disease Father Grandmother Hyperlipidemia Father Grandmother Grandfather Social History Smoking and tobacco/nicotine status: former use of tobacco/nicotine Quit status (tobacco/nicotine): has quit using Year quit tobacco: 2004 Second hand smoke exposure: Yes Alcohol intake: former Year of sobriety/quit date alcohol: 2004 Current gender identity: Female Pertinent Exam Findings alert, oriented x 3, clear to auscultation bilaterally and regular rate & rhythm Recommendations Surgery/Procedure today Coding Level of Care Code Acute Code for Chg Fwd
[2025-02-02 06:55] LABS: OR HCG Qualitative Urine Negative (Negative)
--- NOTE | 2025-02-02 07:24 | ANES.PREANE2 ---
Pre-Anesthetic Assessment Height/Weight: Height 5 ft 6 in Weight 182 lb Temp Pulse Resp BP Pulse Ox O2 Del Method 97.9 F 86 17 118/73 97 Room Air 02/02/25 06:55 02/02/25 06:55 02/02/25 06:55 02/02/25 06:55 02/02/25 06:55 02/02/25 06:57 Preop Diagnosis: right ovarian cyst; heavy menstrual bleeding Operation Date: 02/02/25 09:00 Proposed Procedures p Laparoscopic RIGHT Salpingo Oophorectomy 43522 [id number] 97123 N83.8(Right) - Allen Michelle MD s Hysteroscopy w/ Endometrial Sampling(Not Applicable) - Allen Michelle MD s Possible Endometrial Poylpectomy(Not Applicable) - Allen Michelle MD s Endometriosis Cauterization Endometrial Ablation(Not Applicable) - Allen Michelle MD Was Beta Khoa taken within 24 hours: Yes Was Clonidine taken within 24 hours: N/A Last intake: Intake Last Liquid Date 02/01/25 Last Liquid Time 20:00 Last Solid Date 02/01/25 Last Solid Time 20:00 Social No alcohol and No tobacco Exam alert, oriented x 3, clear to auscultation bilaterally and regular rate & rhythm Airway Submandibular: within normal limits Cervical ROM: within normal limits Mallampati: Class III Comments: Comments: Edentulous Anesthetic Plan ASA status: 3 Anesthesia: General Other: No prior issues with anesthesia NPO since yesterday evening history of GERD on Protonix NATAN, no CPAP Hypertension on propranolol PTSD Labs reviewed from 12/23/2024, hCG negative today Medications/Allergies Home Medications ?Medication ?Instructions ?Recorded ?Confirmed ?Last Taken ?Type Bilateral wrist brace #1 ea 03/10/24 12/31/24 Unknown Rx trazodone 100 mg tablet 100 mg PO .HS PRN insomnia #30 tabs 04/03/24 02/01/25 01/31/25 Rx tizanidine 2 mg tablet 2 mg PO BID PRN muscle spasticity 10/05/24 02/01/25 01/31/25 Rx #20 tabs promethazine 25 mg tablet 25 mg PO Q6H PRN nausea and 11/24/24 02/01/25 01/31/25 Rx vomiting #30 tabs propranolol 20 mg tablet 20 mg PO BID PRN anxiety #60 tabs 12/11/24 02/01/25 01/31/25 Rx sertraline 100 mg tablet 100 mg PO QDAY #30 tabs 12/11/24 02/01/25 01/31/25 Rx pantoprazole 40 mg tablet,delayed 40 mg PO BID 30 days #60 tabs 12/31/24 02/01/25 01/31/25 Rx release (Protonix) sucralfate 100 mg/mL oral 10 ml PO BID 30 days #600 mL 12/31/24 02/01/25 01/31/25 Rx suspension diclofenac sodium 75 mg 75 mg PO BID #60 tabs 01/11/25 02/01/25 01/31/25 Rx tablet,delayed release fluticasone propionate 50 1 spray intranasal BID #16 grams 01/13/25 02/01/25 01/31/25 Rx mcg/actuation nasal spray,suspension (Allergy Relief (fluticasone)) albuterol sulfate 90 mcg/actuation 2 puff inhalation Q6H PRN sob 02/01/25 02/01/25 01/29/25 History aerosol inhaler montelukast 10 mg tablet 10 mg PO DAILY 02/01/25 02/01/25 02/01/25 History rosuvastatin 10 mg tablet 10 mg PO DAILY 02/01/25 02/01/25 01/31/25 History Allergies Allergy/AdvReac Type Severity Reaction Status Date / Time Penicillins Allergy Severe hives as Verified 12/31/24 13:09 child Current Medications Generic Name Dose Route Start Last Admin Trade Name Freq PRN Reason Stop Dose Admin Sodium Chloride 1,000 mls @ 30 mls/hr 02/02/25 06:45 02/02/25 07:08 Sodium Chloride 0.9% IV 02/03/25 06:44 30 mls/hr .Q24H RYANN Administration PFSH Anesthesia Medical History Borderline high blood pressure Chronic back pain greater than 3 months duration Scoliosis of lumbar spine Dyslipidemia Carpal tunnel syndrome, bilateral Obesity (BMI 30.0-34.9) Lordosis of lumbar region Carpal tunnel syndrome of right wrist Encounter to establish care Screening mammogram for breast cancer Screening for cardiovascular condition Psychiatric care No pertinent family history GERD without esophagitis Family History Father Heart disease Hyperlipidemia Diabetes Grandmother Diabetes Hyperlipidemia Heart disease Ovarian cancer Grandfather Hyperlipidemia Social History Smoking and tobacco/nicotine status: former use of tobacco/nicotine Quit status (tobacco/nicotine): has quit using Year quit tobacco: 2004 Second hand smoke exposure: Yes Alcohol intake: former Year of sobriety/quit date alcohol: 2004 Current gender identity: Female
--- NOTE | 2025-02-02 08:00 | W.PM.OPSUD ---
Surgery/Procedure H&P Update DATE OF PROCEDURE: February 02, 2025 DATE H&P PERFORMED: 02/02/25 H&P UPDATE INFORMATION: I have reviewed H&P completed within last 30 days, I have examined patient prior to procedure and No changes to prior documentation PREOP DIAGNOSIS: right ovarian cyst; heavy menstrual bleeding PLANNED PROCEDURE: Operation Date: 02/02/25 09:00 Proposed Procedures p Laparoscopic RIGHT Salpingo Oophorectomy 77105 08302 07260 60724 N83.8(Right) - Allen Michelle MD s Hysteroscopy w/ Endometrial Sampling(Not Applicable) - Allen Michelle MD s Possible Endometrial Poylpectomy(Not Applicable) - Allen Michelle MD s Endometriosis Cauterization Endometrial Ablation(Not Applicable) - Allen Michelle MD
--- NOTE | 2025-02-02 09:40 | PM.OP ---
Operative Report Date of procedure: February 02, 2025 Pre-op diagnosis: Pelvic pain Right ovarian cyst Heavy menstrual bleeding Post-op diagnosis: same Post-op diagnosis: Pelvic pain 12 cm right ovarian cyst Heavy menstrual bleeding Post-op findings: small uterus Normal left ovary Previous bilateral partial salpingectomy Presence of a 12 cm right ovarian cyst. Separate right ovary not identified Unable to perform endometrial ablation due to size and shape of endometrial cavity Procedure done: Laparoscopy Laparoscopic right oophorectomy Hysteroscopy Curettage of uterus Implants: none Specimens removed/disposition: Right ovary with cyst endometrial tissue Surgeon: Allen Michelle MD Anesthesia: General Estimated blood loss (mL): 5 Complications: none Findings: see above Condition: stable Disposition: PACU Brief History: 45 y.o. with right ovarian cyst and heavy menstrual bleeding Procedure: The patient was taken to the OR and placed supine on the table. General endotracheal anesthesia was given. The patient was placed in dorsolithotomy position. The abdomen and perineum were prepped and draped in usual fashion. A 5 mm subumbilical skin incision was made. A laparoscopic trocar with sheath was inserted into the peritoneal cavity under direct vision with the laparoscope. Pneumoperitoneum was achieved. Two separate 5 mm incisions were made in the right and left mid-abdominal quadrants under direct visualization to accommodate additional trocars and sheaths. The pelvis was explored with the laparoscope. The uterus was seen to be small but normal. The left ovary was seen to be normal. There was a 12 cm right ovarian cyst. The pelvis was otherwise seen to be normal. A laparoscopic needle was used to drain clear fluid from the cyst. Approximately 300 cc of fluid was removed and discarded. The cyst wall was opened and then dissected into smaller portions with the Ligasure device. The cyst wall was removed via the umbilical port.. No abnormalities were seen in the utero-ovarian ligaments, broad ligaments, anterior cul-de-sac and pelvic side-brown. No bleeding was seen All instruments were then removed from the abdominal cavity after the pneumoperitoneum was allowed to escape. The skin incisions were closed with 4-O monocryl. Dermabond was applied. A speculum was placed in the vagina. The cervix was grasped with a tenaculum. The cervix was serially dilated with Hegar dilators. The uterus was sounded to 6 cm. A hysteroscope was placed into the endometrial cavity. The cavity was seen to be small but normal. No polyps were seen. The cavity was seen to not be able to accommodate an ablation sheath. The hysteroscope was withdrawn. Curettage of the uterus was done. Small amount of tissue was obtained and sent to pathology. All instruments were then removed from the cervix and vagina. The patient was placed supine. The patient was then awakened and taken to the recovery room in good condition. Postop condition stable. EBL 5 cc. There were no complications. Sponge and instrument counts were correct x two
--- NOTE | 2025-02-02 09:47 | PC.NURSE ---
750 mL fluid drained from right ovarian cyst prior to removal
[2025-02-02] MEDS: fentaNYL 50 mcg/mL INJ 2mL IVP (10:00)
[2025-02-02] MEDS: oxyCODONE-APAP 5-325 mg Tablet 1 TAB PO (10:44)
--- NOTE | 2025-02-02 12:10 | ANE.PACU2 ---
Inpatient post-anesthesia follow up: Airway intact: Yes Vital signs: Temperature 97.1 F Pulse Rate 86 Respiratory Rate 18 Blood Pressure 103/64 Pulse Oximetry 97 Oxygen Delivery Me thod Room Air Oxygen Flow Rate 8 Fraction of Inspir ed Oxygen Hydration adequate: Yes Nausea and vomiting: No Pain level: 1 Mental status: Baseline
== END 2025-02-02 12:10 | disposition home or self-care (01) ==
PROVIDERS: PCP Family Medicine; Visit Provider Obstetrics & Gynecology
PROC: 0UJD8ZZ Inspection of Uterus and Cervix, Via Natural or Artificial Opening Endoscopic (ICD-10-PCS; CPT 58555; 2025-02-02 09:00)
PROC: (CPT 58662; 2025-02-02 09:00)
DX: D27.0 Benign neoplasm of right ovary (principal); N92.0 Excessive and frequent menstruation with regular cycle; E78.5 Hyperlipidemia, unspecified; E66.9 Obesity, unspecified; Z68.29 Body mass index [BMI] 29.0-29.9, adult; K21.9 Gastro-esophageal reflux disease without esophagitis; Z87.891 Personal history of nicotine dependence; G47.33 Obstructive sleep apnea (adult) (pediatric); I10 Essential (primary) hypertension; F43.10 Post-traumatic stress disorder, unspecified
CPT/HCPCS: 58558; 81025; 88304; 88305; J1100; J1200; J1885; J2250; J2405; J2704; J3010; J3490; J7030; J9999

== ENCOUNTER 2025-03-26 05:46 | Inpatient (IN) | payer MEDICARE, MEDICAID, SELFPAY ==
[2025-03-26] VITALS (12 sets, daily range): BP systolic 109–139; BP diastolic 74–97; PULSE 99–123; RESP 14–24; TEMP 36.6–37.1; O2SAT 96–100; BMI 37.3
--- NOTE | 2025-03-26 05:39 | XRR_ITS ---
PROCEDURE INFORMATION: Exam: XR Chest Exam date and time: 03/26/2025 5:52 AM Age: 45 years old Clinical indication: Pain; Chest pressure; Additional info: Chest pain TECHNIQUE: Imaging protocol: Radiologic exam of the chest. Views: 1 view. COMPARISON: CT abdomen pelvis w con* [id number] 11/15/2024 7:56 AM FINDINGS: Lungs: Unremarkable. No consolidation. Pleural spaces: Unremarkable. No pleural effusion. No pneumothorax. Heart/Mediastinum: Unremarkable. No cardiomegaly. Bones/joints: Unremarkable. XR/XR chest 1V portable [id number] IMPRESSION: No acute findings.
--- NOTE | 2025-03-26 05:50 | ECG_ITS ---
[facility] Date: 2025-03-26 Pat Name: Graciela Jackson Department: Room: Gender: Female Caving Guide: : 1980 Requested By: Ed Turner Order Number: [id number] Zoey MD: Farzad Loza M.D. Measurements Intervals [place] Rate: 121 P: 76 ME: 126 QRS: 43 QRSD: 77 T: 62 QT: 410 QTc: 583 Interpretive Statements SINUS TACHYCARDIA ABNORMAL RHYTHM ECG No previous ECG available for comparison Electronically Signed On 03-27-2025 17:47:49 [employer] by Farzad Loza M.D. [email or web address]
--- OUTSIDE RECORDS SUMMARY | 2025-03-26 06:00 | XMS_ITS | Data Portability ---
Author Organization MANOJ Jason Luo [facility], [facility], [facility] Address [address] [address] Care Team Providers Care Rpg Programmer Analyst Name Role Phone SADIE ARMAS Psychiatrist VIVIAN CASEY Primary Care Provider [phone] Assessment Encounter Date Assessment Date Assessment LastModified by Organization Details LastModified Time 11/11/2024 11/11/2024 PPD skin [email or web address] Not available 10/27 13:40:52 Plan of Treatment Reminders Order Date Submit Date Provider Last Modified By Organization Details Last Modified Time Details Appointments None recorded. Lab PPD (purified protein derivative) , skin test 2024 025 [facility] ([facility]), [address] [place] [address], [phone], 13:25:22 Referral None recorded. Procedures None recorded. Surgeries None recorded. Imaging None recorded. Medication Orders Tubersol 5 tub. unit/0.1 mL intradermal injection solution 2024 025 [email or web address] Not available 11:36:53 cefdinir 300 mg capsule 2023 024 [email or web address] [id number], [address], [place], [place], [phone], 10:48:39 Patient TargetsNo targets recorded. Patient InstructionsNo instructions recorded. Reason for Referral None Reported. Results Created Date Observation Date Name Description Value Unit Range Abnormal Flag Note LastModifiedBy Organization Detail LastModifiedTime 11/12/19 25 11/11/2024 PPD (tao fied prote in deriv ative ), skin test TB negati ve Not Available [facility] [address] [place] [address], [phone], 11/09/2024 11:04:07 Result Notes None recorded. Problems Name Problem SNOMED Code Status Onset Date Resolution Date Notes Provider Name and Address Organization Details Recorded Time Colposcopy Active 2002 Colposco py; 1999; 01/05/20 03 1:19PM by Hal Craven MD, Office Visit; Promoted ; acuity set as *; Not Available [facility] 03:10:41 Mixed anxiety and depressive disorder 423559281 Active 2022 [facility] 3 14:56:27 Hypercholes terolemia 93260296 Active 2022 [facility] 3 14:56:35 Type 2 diabetes mellitus 82496739 Active 2022 [facility] 3 14:57:28 Gastroesoph ageal reflux disease 482026265 Active 2022 [facility] 3 14:57:54 Allergic rhinitis 97570872 Active 2022 [facility] 3 14:58:29 Carpal tunnel syndrome 77181625 Active 2022 [facility] 3 15:03:29 Insomnia 426195738 Active 2022 CONSUELO VOGT [facility] 3 15:23:52 Asthma 630308741 Active 2022 CONSUELO VO[facility] 3 15:24:59 Panic disorder 427514931 Active 2022 CONSUEL[facility] VO[facility] [place] 3 15:25:20 Problem Notes None recorded. Procedures Surgical History Date Name Laterality Status Provider Name and Address Organization Details Recorded Time Tubal Ligation completed KEAGAN YAO [facility], [place] 04/16/2023 15:03:00 Imaging Results None recorded. Procedure Notes None recorded. Medical Equipment None Reported. Allergies Allergen ID Allergen Name Allergen Category Reaction Reaction Severity Criticality Documentation Date Start Date Code Code System Note Provider Name and Address Organization Details Recorded Time 80249 Product containin g penicilli n (product) medicatio n hives Not available Not available 11/24/2022 66658 8001 SNOMED React ion: Hives ; Comme nt: Recor ded 01/04 1:15P M by Curly mitchell MD, Offic e Visit ; Promo denise; Signi bruna ce: *; ; Not Available [facility] 3 02:28:45 06522 strawberr y allergeni c extract food Not available Not available Not available 04/16/2023 63705 4 RxNorm [facility] 3 14:53:59 Medications Name Sig Start Date Stop Date Status Note LastModified by Organization Details LastModified Time accu-chek guide test strips strp active Not Available Not Available Not Available tizanidin e 2 mg tablet TAKE 1 TABLET BY MOUTH TWICE DAILY NEEDED FOR muscle spastici ty. MAY take 2-3 times a DAY active Not Available Not Available No t Available trazodone 50 mg tablet TAKE TWO TABLETS BY MOUTH ONCE DAILY AT BEDTIME NEEDED FOR INSOMNIA 03/29 completed Not Available Not Available Not Available fluconazo le 150 mg tablet TAKE ONE TABLET BY MOUTH ONCE 11/09 completed Not Available Not Available Not Available sucralfat e 1 gram tablet TAKE 1 TABLET BY MOUTH TWICE DAILY active Not [...] TAKE 1 TABLET BY MOUTH FOUR TIMES DAILY NEEDED FOR ANXIETY active Not Available Not Available No t Available ondansetr on 8 mg disintegr ating tablet PLACE 1 TABLET UNDER TONGUE EVERY 8 HOURS active Not Available Not Available No t Available pantopraz ole 20 mg tablet,de layed release TAKE ONE TABLET BY MOUTH TWICE DAILY active Not Available Not Available No t Available meloxicam 7.5 mg tablet TAKE 1 TABLET BY MOUTH DAILY active Not Available Not Available No t Available famotidin e 20 mg tablet TAKE 1 TABLET BY MOUTH DAILY active Not Available Not Available No t Available trazodone 100 mg tablet TAKE 1 TABLET BY MOUTH AT BEDTIME NEEDED FOR insomnia active Not Available Not Available No t Available pantopraz ole 40 mg tablet,de layed release TAKE 1 TABLET BY MOUTH ONCE DAILY 03/29 completed Not Available Not Available Not Available promethaz ine 25 mg tablet TAKE 1 TABLET BY MOUTH EVERY 6 HOURS NEEDED FOR NAUSEA AND VOMITING active Not Available Not Available No t Available omeprazol e 20 mg capsule,d elayed release take 1 capsule BY MOUTH EVERY MORNING. TAKE WHILE ON DICLOFEN AC TO PROTECT STOMACH active Not Available Not Available No t Available diclofena c sodium 75 mg tablet,de layed release TAKE 1 TABLET BY MOUTH TWICE DAILY active Not Available Not Available No t Available monteluka st 10 mg tablet TAKE 1 TABLET BY MOUTH EVERY DAY active Not Available Not Available No t Available diclofena c sodium 50 mg tablet,de layed release TAKE 1 TABLET BY MOUTH EVERY TWELVE HOURS NEEDED FOR PAIN active Not Available Not Available No t Available albuterol sulfate HFA 90 mcg/actua tion aerosol inhaler INHALE TWO PUFFS EVERY 6 HOURS NEEDED FOR SHORTNES S OF BREATH active Not Available Not Available No t Available propranol ol 20 mg tablet TAKE 1 TABLET BY MOUTH TWICE DAILY NEEDED FOR ANXIETY active Not Available Not [...] 1 SPRAY IN EACH NOSTRIL TWICE DAILY active Not Available Not Available No t Available sertralin e 50 mg tablet TAKE ONE TABLET BY MOUTH ONCE DAILY FOR FOURTEEN DAYS THEN INCREASE TO TWO TABLETS DAILY 04/16 completed Not Available Not Available Not Available doxycycli ne hyclate 100 mg tablet TAKE ONE TABLET BY MOUTH TWICE DAILY 11/09 completed Not Available Not Available Not Available oxycodone 5 mg tablet TAKE 1 TABLET BY MOUTH EVERY 4 HOURS NEEDED FOR PAIN active Not Available Not Available No t Available neomycin- polymyxin -hydrocor t 3.5 mg-10,000 [...] Not Available rosuvasta tin 10 mg tablet TAKE 1 TABLET BY MOUTH EVERY DAY active Not Available Not Available No t Available Flovent HFA 110 mcg/actua tion aerosol inhaler INHALE 1 PUFF BY MOUTH TWICE DAILY active Not Available Not Available No t Available Byetta 5 mcg/dose (250 mcg/mL)1. 2 mL subcutane ous pen injector inject 5mcg (0.02ml) SUBCUTAN EOUSLY TWICE DAILY active Not Available Not Available [...] mass index (BMI) Body weight Oxygen saturation Heart rate Respiratory rate Body temperature Systolic And Diastolic Provider Name and Address Organization Details Last Updated DateTime 4 167.64 cm 37.3 kg/m2 333952. 84 g 99 % 68 /min 15 /min 97.3 [degF] 138/82 mm[Hg] Gretchen Gregory [facility] 4 15:53:28 Date Recorded Body height Body mass index (BMI) Body weight Body temperature Respiratory rate Oxygen saturation Heart rate Systolic And Diastolic Provider Name and Address Organization Details Last Updated DateTime 4 167.64 cm 37.4 kg/m2 260780. 43 g 97.3 [degF] 20 /min 98 % 75 /min 135/80 mm[Hg] Thi Lutz [facility] 4 13:08:23 Date Recorded Body height Body mass index (BMI) Body weight Oxygen saturation Heart rate Respiratory rate Body temperature Provider Name and Address Organization Details Last Updated DateTime 4 167.64 cm 37.3 kg/m2 054881. 12 g 98 % 68 /min 0 /min 97.8 [degF] Teressa Alfred [facility] 4 15:58:57 Date Recorded Body weight Body mass index (BMI) Body height Respiratory rate Oxygen saturation Heart rate Body temperature Systolic And Diastolic Provider Name and Address Organization Details Last Updated DateTime 5 765775. 84 g 37.3 kg/m2 167.64 cm 17 /min 96 % 61 /min 98.1 [degF] 132/86 mm[Hg] BERNARD MELISSA [facility] 5 10:47:37 Social History Question Answer Notes LastModified by Organizat ion Details LastModified Time Tobacco Smoking Status Former Smoker KEAGAN reese [facility] 04/16/2023 15:02:42 What Was The Date Of Your Most Recent Tobacco Screening? 11/09/2024 Information not available 11/09/2024 Sex: Unknown Functional Status None recorded. Mental Status None recorded. Family History Relationship Description Onset Age of this Age Resolved Age Notes LastModified by Organization Details LastModified Time Father Heart disease DVT. Passed [email or web address] Not available 04/16/2023 15:00:33 Father Diabetes mellitus [email or web address] Not available 03/29 15:01:07 Maternal Grandmother Diabetes mellitus [email or web address] Not available 03/29 14:59:24 Maternal Grandmother Cerebrovascu lar accident [email or web address] Not available 1 06/17/2022 14:59:36 Maternal Grandmother Deep venous thrombosis [email or web address] Not available 15:00:03 Mother Hypertensive disorder Not available 2022 15:27:28 Medical History Condition Response Coronary Artery Disease N Other N Gout N Kidney Stones N Blood Diseases N Hyperthyroidism N Blood Transfusion N Breast Cancer N Depression N Hypothyroidism N Lung Disease N COPD N Defects or Inherited Disease N Developmental or Behavioral Disorders N Breast Problem N Difficulty Swallowing N Anesthesia Complications N Meniere's disease N Anxiety Disorder Y Muscle, Joint, or Bone Problems N Vision or Eye Problems N Arthritis N Polyps N Infertility N Cancer N Varicosities N Stroke N Endometriosis N Bladder or Kidney Problems [...] Time IPV 1980 completed HARLEY PICKENS PA-C [address] [place] [address], [address], [facility] 03/29/2023 16:23:33 IPV 09/07/1984 completed HARLEY PICKENS PA-C [address] [place], [address], [facility] 03/29/2023 16:23:33 IPV 09/20/1981 completed HARLEY PICKENS PA-C [address] [place], [address], [facility] 03/29/2023 16:23:33 IPV 1980 completed HARLEY PICKENS PA-C [address] [place], [address], [facility] 03/29/2023 16:23:33 IPV 1980 completed HARLEY PICKENS PA-C [address] [place], [address], [facility] 03/29/2023 16:23:33 MMR 09/20/1981 completed HARLEY PICKENS PA-C [address] [place], [address], [facility] 03/29/2023 16:23:33 COVID-19, mRNA, LNP-S, PF, 100 mcg/0.5mL dose or 50 mcg/0.25mL dose 12/30/2020 completed HARLEY PICKENS PA-C [address] [place], [address], [facility] 03/29/2023 16:23:33 COVID-19, mRNA, LNP-S, PF, 100 mcg/0.5mL dose or 50 mcg/0.25mL dose 01/26/2021 completed HARLEY PICKENS PA-C [address] [place], [address], [facility] 03/29/2023 16:23:33 COVID-19, mRNA, LNP-S, bivalent, PF, 50 mcg/0.5 mL or 25mcg/0.25 mL dose 04/05/2022 completed HARLEY PICKENS PA-C [address] [place], [address], [facility] 03/29/2023 16:23:33 Tdap 06/24/2022 completed HARLEY PICKENS PA-C [address] [place], [address], [facility] 03/29/2023 16:23:33 Tdap 11/13/2013 completed HARLEY PICKENS PA-C [address] [place], [address], [facility] 03/29/2023 16:23:33 DTaP 1980 completed HARLEY PICKENS PA-C [address] [place], [address], [facility] 03/29/2023 16:23:33 DTaP 1980 completed HARLEY PICKENS PA-C [address] [place], [address], [facility] 03/29/2023 16:23:33 DTaP 09/12/1984 completed HARLEY PICKENS PA-C [address] [place], [address], [facility] LSharonLSharonCSharon 03/29/2023 16:23:33 DTaP 09/20/1981 completed HARLEY PICKENS PA-C [address] [place], [address], [facility] L.Temo 03/29/2023 16:23:33 DTaP 1980 completed HARLEY PICKENS PA-C [address] [place], [address], [facility] 03/29/2023 16:23:33 Influenza, split virus, quadrivalent, PF 03/05/2023 completed HARLEY PICKENS PA-C [address] [place], [address], [facility] 03/29/2023 16:23:33 Hep A-Hep B 06/28/2022 completed HARLEY PICKENS PA-C [address] [place], [address], [facility] 03/29/2023 16:23:33 Hep A-Hep B 03/27/2022 completed HARLEY PICKENS PA-C [address] [place], [address], [facility] 03/29/2023 16:23:33 Past Encounters Encounter ID Performer Location Encounter Start Date Encounter Closed Date Diagnosis/Indication Diagnosis SNOMED-CT Code Diagnosis ICD10 Code Diagnosis IMO Codes Diagnosis Note [id number] HARLEY PICKENS PA-C [facility] ([facility]) [address] [place] [phone] 03/29/2023 15:47:49 03/29/2023 17:32:32 Abdominal pain 28521184 R10.9 Nausea, vo miting and diarrhea 4645550 R11.2 Gastroesop hageal reflux disease 439425155 K21.9 continue with her PPI and sulcrafate . If Dr. Trevino thinks she needs EGD can get her set up [id number] Vinita Trevino MD [facility] ([facility]) [address] [place] [address] 04/16/2023 13:57:06 04/16/2023 15:55:58 Adult health examination 740211639 Z00.00 Screening mammography 24 299474 Z12.31 pt is overdue Patient ne w to provider [id number] 00342 Z76.89 Hyperlipid emia screening 201007210 Z13.220 w dm likely needs statin - she is not currently on one. Type 2 lenard betes mellitus 70284421 E11.9 per pt, watches diet, not on any meds for it. Skin tag 526044826 L91.8 on right eyelid [id number] HARLEY PICKENS PA-C [facility] ([facility]) [address] [place] [address] 06/14/2023 15:38:13 06/14/2023 16:02:31 Acute upper respiratory infection 72958106 J06.9 [id number] ANDREAS PIZANO [facility] ([facility]) [address] [place] [address] 10/12/2023 12:46:58 10/12/2023 13:23:10 Acute suppurative otitis media without spontaneous rupture of ear drum 69419493 H66.094 [id number] ELISA HOUSE [facility] ([facility]) [address] [place] [address] 10/16/2023 15:46:18 10/16/2023 16:21:00 Acute suppurative otitis media without spontaneous rupture of ear drum 43058214 H66.001 Discussed to continue the cefdinir as prescribed . Pt is not having diarrhea but a stool color change. She vomited once this morning and left work early. Is asking for a note to return to work. [id number] ELISA HOUSE [facility] ([facility]) [address] [place] [address] 11/09/2024 10:33:45 11/09/2024 12:43:25 Tuberculosis screening status 782188604 Z11.1 022737 PPD skin test administer ed today. Pt will return in 48-72 hours for a read. [id number] ELISA [facility] ([facility]) [address] [place] [address] 11/11/2024 13:21:58 11/11/2024 15:48:11 Health Concerns Section Related Observation LastModified by Organization Detai ls LastModified Time None Recorded Concern Status LastModified by Organization Details LastModified Time None Recorded Advance Directives Directive None Recorded Payers Insurance Date Sequence Insurance Name Policy Number Policy Baker Covered Member ID Baker Member ID Guarantor Name 11/09/2024 1 [id number] Graciela Reyesbuchon [id number] Graciela Amybuchon 11/23/2024 1 [facility] (MEDICARE REPLACEMENT/ ADVANTAGE - HMO) Graciela Aubuchon [id number] Graciela Aubuchon 11/09/2024 3 [facility] (MEDICARE REPLACEMENT/ ADVANTAGE - HMO) [id number] Graciela Aubuchon [id number] Graciela Aubuchon 11/09/2024 2 [place] Graciela Aubuchon [id number] Graciela Aubuchon 11/09/2024 [place] [facility] Graciela Aubuchon [id number] Graciela Aubuchon Notes Date Note Type Note Provider Name and Address Organization Details Recorded Time 06/14/19 24 text/htm l FeverReported by PatientHPIFor associated symptoms, patient reportsheadacheanddiarrheabut reportsno vomiting,normal appetite,no shortness of breath,no nasal congestion/discharge,no sore throat, andno fatigue. For severity, patient reportshighest fever: (101f)andsame. For duration, patient reportsintermittent,symptoms started 1 days ago, andfever for less than 3 weeks. For onset/timing, patient reportsfirst recorded: (yesterday morning)andrandom onset. For alleviating factors, (tylenol).ROS as noted in the HPI HARLEY PICKENS PA-C [address] [place], [address], [facility], [place] 06/14/2023 15:59:51 10/12/19 24 text/htm l Ear Pain Brief HPIReported by PatientHPIFor location, patient reportspain radiates to neckbut reportsright. For quality, patient reportsshooting pain,throbbing pain,aching pain, anditchingbut reportsno discharge from the earsandno burning. For severity, patient reportsinterferes with daily activitiesandinterferes with ability to sleepbut reportscurrent pain 5/10andmoderate pain. For associated symptoms, patient reportssense of fullness/pressure,decreased hearing, andmuffled hearing(ringing). For onset/timing, patient reportsstarted 3days agoandintermittent pain. For alleviating factors, patient reportsotc ear drops: ___andnsaids.ROS as noted in the HPI Walk In-She has been having some right sided ear pain bothering her for the past 3 days. It is throbbing & it feels like she is underwater. PCP-None currently ANDREAS PIZANO, [employer] [address] [place] [address], [phone], [facility] 10/12/2023 13:18:21 10/16/19 24 text/htm l EaracheReported by PatientHPIFor context, patient reportshistory of ear aches/ear infectionsandswimming/water in ear. For location, patient reportsright. For quality, patient reportsdull. For severity, patient reportsno change.vomiting and diarrhea this morningROS as noted in the [facility] Walk in clinicpatient reports her right ear ache starting a week ago. SHe was seen in the walk in clinic. she is back today reporting ear ache persisting and now having vomiting and diarrhea this morning. ELISA HOUSE [address], [address], [facility] 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 All have been negative. ELISA HOUSE [facility] [place], [address], [facility] 11/09/2024 12:26:11 11/12/19 25 text/htm l ROS as noted in the [facility] TB read nurse visit only BERNARD reese, [place] [facility], [place] 11/11/2024 13:41:23 OBGyn Episode No OBEpisode recorded.
[2025-03-26] MEDS: diphenhydrAMINE 50 mg/mL SDV 1mL IVP (06:04)
[2025-03-26] MEDS: metoclopramide 5 mg/mL SDV 2 mL 10 MG IVP (06:04)
--- NOTE | 2025-03-26 06:11 | W.ED.CHESTPA ---
Documented by User: Priscilla Webster MD 03/26/25 08:46 HPI - Chest Pain General: Chief Complaint: Chest Pain Stated Complaint: CP Time Seen by Provider: 03/26/25 05:52 Source: patient and EMS Mode of arrival: EMS Limitations: no limitations History of Present Illness: 45-year-old female states she has not felt well over the last 3 days. States she has had bodyaches with subjective fevers and cough. States she been having pain all over including chest pain has been sharp in nature. She denies any worsening improving factors. Has had some nausea. Related Data Home Medications ?Medication ?Instructions ?Recorded ?Confirmed montelukast 10 mg tablet 10 mg PO DAILY 02/01/25 03/26/25 rosuvastatin 10 mg tablet 10 mg PO DAILY 02/01/25 03/26/25 hydroxyzine HCl 50 mg tablet 50 mg PO QID 03/26/25 03/26/25 norethindrone 1.5 mg-ethinyl 1 tab PO DAILY 03/26/25 03/26/25 estradiol 30 mcg(21)/iron 75 mg(7) tablet (Blisovi Fe 1.5/ ()) Previous Rx's ?Medication ?Instructions ?Recorded Bilateral wrist brace #1 ea 03/10/24 tizanidine 2 mg tablet 2 mg PO BID PRN muscle spasticity 10/05/24 #20 tabs promethazine 25 mg tablet 25 mg PO Q6H PRN nausea and 11/24/24 vomiting #30 tabs propranolol 20 mg tablet 20 mg PO BID PRN anxiety #60 tabs 12/11/24 sertraline 100 mg tablet 100 mg PO QDAY #30 tabs 12/11/24 sucralfate 100 mg/mL oral 10 ml PO BID 30 days #600 mL 12/31/24 suspension diclofenac sodium 75 mg 75 mg PO BID #60 tabs 01/11/25 tablet,delayed release omeprazole 20 mg capsule,delayed See Rx Instructions .Route 02/05/25 release .COMPLEX #30 caps trazodone 100 mg tablet 100 mg PO .HS PRN insomnia #30 tabs 02/05/25 fluticasone propionate 50 1 spray intranasal BID #16 grams 02/25/25 mcg/actuation nasal spray,suspension (Allergy Relief (fluticasone)) albuterol sulfate 90 mcg/actuation See Rx Instructions .Route 03/24/25 aerosol inhaler .COMPLEX #8.5 grams Allergies Allergy/AdvReac Type Severity Reaction Status Date / Time Penicillins Allergy Severe hives as Verified 02/11/25 09:42 child [facility] ED PFSH: Medical History Borderline high blood pressure Chronic back pain greater than 3 months duration Scoliosis of lumbar spine Dyslipidemia Carpal tunnel syndrome, bilateral Obesity (BMI 30.0-34.9) Lordosis of lumbar region Carpal tunnel syndrome of right wrist Encounter to establish care Screening mammogram for breast cancer Screening for cardiovascular condition Psychiatric care No pertinent family history GERD without esophagitis Family History Father Heart disease Hyperlipidemia Diabetes Grandmother Diabetes Hyperlipidemia Heart disease Ovarian cancer Grandfather Hyperlipidemia Social History Smoking and tobacco/nicotine status: former use of tobacco/nicotine Quit status (tobacco/nicotine): has quit using Year quit tobacco: 2004 Second hand smoke exposure: Yes Alcohol intake: former Year of sobriety/quit date alcohol: 2004 Current gender identity: Female Physical Exam Const: COMMON NORMALS: patient oriented x3 HENMT: COMMON NORMALS: normocephalic and atraumatic HEAD & SCALP: normocephalic and atraumatic Eye: COMMON NORMALS: Equal, round and reactive pupils present and EOMs intact bilaterally PUPIL: Yes Equal, round and reactive pupils present Neck/C-Spine: COMMON NORMALS: full ROM and supple Chest: COMMONS NORMALS: normal inspection of the chest and normal palpation of entire chest wall Resp: COMMON NORMALS: normal respiratory effort, No retractions, No use of accessory muscles and clear to auscultation bilaterally AUSCULTATION: clear to auscultation bilaterally Cardio: COMMON NORMALS: regular rhythm and No murmurs present (Cardio) RATE: tachycardic RHYTHM: regular rhythm GI: COMMON NORMALS: Normal to inspection, nondistended, normoactive bowel sounds present, Soft to palpation, non-tender and no masses PALPATION: Yes Soft to palpation Extremity: COMMON NORMALS: normal to inspection and full ROM Neuro: COMMON NORMALS: patient oriented x3, moves all extremities and no focal motor deficits Psych: COMMON NORMALS: mental status grossly normal, Normal thought process present and cooperative THOUGHT PROCESS: Normal thought process present Skin: COMMON NORMALS: no rashes or lesions noted and no wounds GENERAL SKIN EXAM: no rashes or lesions noted Course Vital Signs: Vital signs: Vital Signs Temperature 97.8 F 03/27/25 03:46 Pulse Rate 79 03/27/25 03:46 Respiratory Rate 17 03/27/25 03:46 Blood Pressure 91/63 03/27/25 03:46 Pulse Oximetry 97 03/27/25 03:46 Oxygen Delivery Me thod Room Air 03/27/25 03:46 MDM - Chest Pain Medical Decision Making 45-year-old female presented here with chest pains differential includes ACS, pulmonary embolism, pneumothorax. Chest x-ray here interpreted by me showed no acute abnormality did do a CTA chest that shows a hilar mass along with pulmonary emboli. Patient is tachycardic here with A-fib with RVR her EKG shows A-fib heart rate [address] elevation QRS 88 QTc 410. Mildly elevated white count along with likely UTI did give her Rocephin. She is afebrile here I do not believe she is septic and believe her increased heart rate is from her pulmonary emboli. She has no signs of heart strain did give her a dose of Lovenox I spoke to hospitalist Dr. Restrepo and will admit to the cardiac stepdown critical care time 40 minutes The high probability of a clinically significant, sudden or life threatening deterioration of the patient's vb system(s) required my full and direct attention, intervention and personal management. The critical care time is as shown. This time is in addition to time spent performing any reported procedures but includes the following: [x] Data and vital sign review and interpretation [x] Patient assessment, examination and intervention [x] Documentation [x] Medication orders and management Medical Records I reviewed the patient's medical records. Lab Data I reviewed the patient's lab results. 03/27/25 02:57 03/27/25 02:57 Radiology Impressions Chest X-Ray 03/26/25 05:39 IMPRESSION: No acute findings. Chest CTA 03/26/25 06:42 IMPRESSION: 1. Extensive pulmonary emboli. 2. Left hilar mass. 3. Moderate left lower lobe infiltrate likely pneumonia or pulmonary infarct. ADDENDUM: 03/26/25 0748 THIS REPORT CONTAINS FINDINGS THAT MAY BE CRITICAL TO PATIENT CARE. The findings were verbally communicated via telephone conference with PRISCILLA WEBSTER at 7:46 AM CORPORATE TRAVEL CONSULTANT on 03/26/2025. The findings were acknowledged and understood. Abdomen/Pelvis CT 03/26/25 07:34 IMPRESSION: Mild stranding adjacent to the mid right ureter/right gonadal vein. The etiology of this finding is not evident. Laboratory Results WBC 14.61 10^3/uL (3.29-11.43) H 03/26/25 06:05 RBC 4.06 10^6/uL (3.85-5.65) 03/26/25 06:05 Hgb 12.00 g/dL (11.27-16.99) 03/26/25 06:05 Hct 36.2 % (36-47) 03/26/25 06:05 MCV 89.2 fl (85-98) 03/26/25 06:05 MCH 29.6 pg (27-33) 03/26/25 06:05 MCHC 33.1 g/dL (30-55) 03/26/25 06:05 RDW 11.9 % (12.1-15.1) L 03/26/25 06:05 Plt Count 364 10^3/cmm (157-399) 03/26/25 06:05 MPV 9.5 fL (7.4-10.4) 03/26/25 06:05 Neut % (Auto) 82.6 % 03/26/25 06:05 Lymph % (Auto) 11.6 % 03/26/25 06:05 Humphreys % (Auto) 4.4 % 03/26/25 06:05 Eos % (Auto) 0.2 % 03/26/25 06:05 Baso % (Auto) 0.2 % 03/26/25 06:05 Neut # (Auto) 12.07 10^3/uL (1.8-7.7) H 03/26/25 06:05 Lymph # (Auto) 1.7 10^3/uL (0.8-4.8) 03/26/25 06:05 Humphreys # (Auto) 0.6 10^3/uL (0.2-0.9) 03/26/25 06:05 Eos # (Auto) 0.0 10^3/uL (0.0-0.8) 03/26/25 06:05 Baso # (Auto) 0.0 10^3/uL (0.0-0.1) 03/26/25 06:05 Nucleated RBC % (auto) 0 % 03/26/25 06:05 Nucleated RBCs # 0.0 /100WBC 03/26/25 06:05 PT 14.20 SECONDS (12.1-14.9) 03/26/25 06:05 INR 1.03 (0.8-1.2) 03/26/25 06:05 Sodium 134 mmol/L (136-145) L 03/26/25 06:05 Potassium 3.8 mmol/L (3.5-5.1) 03/26/25 06:05 Chloride 95 mmol/L (98-107) L 03/26/25 06:05 Carbon Dioxide 19 mmol/L (22-29) L 03/26/25 06:05 Anion Gap 23.8 (5-19) H 03/26/25 06:05 BUN 19 mg/dL (6-20) 03/26/25 06:05 Creatinine 1.4 mg/dL (0.5-0.9) H 03/26/25 06:05 GFR Calculation 40.7 mL/min (90-130) L 03/26/25 06:05 Glucose 191 mg/dL (65-115) H 03/26/25 06:05 Estimat Average Glucose 114 03/26/25 06:05 Hemoglobin A1c 5.6 % (4.0-6.0) 03/26/25 06:05 Calculated Osmolality 285 mOsm/kg (285-295) 03/26/25 06:05 Calcium 9.3 mg/dL (8.5-10.5) 03/26/25 06:05 Phosphorus 3.9 mg/dL (2.5-4.5) 03/26/25 07:53 Magnesium 1.8 mg/dL (1.7-2.3) 03/26/25 07:53 Total Bilirubin 0.6 mg/dL (0.15-1.2) 03/26/25 06:05 AST 20 U/L (0-32) 03/26/25 06:05 ALT 21 U/L (0-33) 03/26/25 06:05 Alkaline Phosphatase 176 U/L (35-105) H 03/26/25 06:05 CK-MB (CK-2) Cancelled 03/26/25 06:05 CK-MB (CK-2) Rel Index Cancelled 03/26/25 06:05 Troponin T Baseline 8 ng/L (0-10) 03/26/25 06:05 Troponin T 120 Minute 13.12 ng/L (0-10) H 03/26/25 07:53 Delta Troponin T 5.12 ABS# (0-10) 03/26/25 07:53 NT-Pro-B Natriuret Pep 121 pg/mL (0-125) 03/26/25 07:53 Total Protein 8.5 g/dL (6.6-8.7) 03/26/25 06:05 Albumin 4.5 g/dL (3.5-5.2) 03/26/25 06:05 Globulin 4.0 g/dL (1.3-4.6) 03/26/25 06:05 Triglycerides 306 mg/dL (0-150) H 03/26/25 07:53 Cholesterol 201 mg/dL (0-200) H 03/26/25 07:53 LDL Cholesterol, Calc 105 mg/dL (50-129) 03/26/25 07:53 HDL Cholesterol 35 mg/dL (60-100) L 03/26/25 07:53 LDL/HDL Ratio 3.00 RATIO (0.00-3.22) 03/26/25 07:53 Cholesterol/HDL Ratio 5.74 mg/dL (0.0-4.40) H 03/26/25 07:53 TSH 4.00 uIU/mL (0.27-4.20) 03/26/25 07:53 Urine Color Dark yellow (Yellow) A 03/26/25 07:05 Urine Appearance Turbid (CLEAR) A 03/26/25 07:05 Urine pH 5.0 (5-7) 03/26/25 07:05 Ur Specific Wellman 1.037 (1.005-1.030) H 03/26/25 07:05 Urine Protein 2+ (Negative) A 03/26/25 07:05 Urine Glucose (UA) Negative (Normal) 03/26/25 07:05 Urine Ketones Trace (Negative) 03/26/25 07:05 Urine Blood 2+ (Negative) A 03/26/25 07:05 Urine Nitrate Negative (Negative) 03/26/25 07:05 Urine Bilirubin 2+ (Negative) H 03/26/25 07:05 Urine Urobilinogen 1.0 mg/dL (Negative) 03/26/25 07:05 Ur Leukocyte Esterase 1+ (Negative) A 03/26/25 07:05 Urine RBC 21-50 /hpf (0-2) H 03/26/25 07:05 Urine WBC 21-50 /hpf (0-5) H 03/26/25 07:05 Ur Squamous Epith Cells 51-100 /hpf (0-5) 03/26/25 07:05 Amorphous Sediment Not Reportable 03/26/25 07:05 Urine Bacteria 4+ /hpf (NONE) H 03/26/25 07:05 Hyaline Casts 81.92 /lpf 03/26/25 07:05 Coarse Granular Casts 0-4 /lpf H 03/26/25 07:05 Influenza A (PCR) Negative (Negative) 03/26/25 06:13 Influenza Type B (PCR) Negative (Negative) 03/26/25 06:13 RSV (PCR) Negative (Negative) 03/26/25 06:13 SARS-CoV-2 (PCR) Negative (Negative) 03/26/25 06:13 All radiology interpretation(s) finalized by discharge EKG Data EKG 1: I personally reviewed and interpreted this EKG as follows: EKG interpretation date: 03/26/25 EKG interpretation time: 05:50 Interpretation: sinus tach hr [address] elevation qrs 77 qtc 482 Critical Care Time Critical Care Time: Critical Care Time: Yes Total Critical Care Time: 40 Attestation: The high probability of a clinically significant, sudden or life threatening deterioration of the patient's vb system(s) required my full and direct attention, intervention and personal management. The critical care time is as shown. This time is in addition to time spent performing any reported procedures but includes the following: [x] Data and vital sign review and interpretation [x] Patient assessment, examination and intervention [x] Documentation [x] Medication orders and management Discharge Plan Discharge Patient Disposition: Admitted As Inpatient Admit Provider: Ayo Restrepo Clinical Impression: Pulmonary embolism, Acute cystitis, Atrial fibrillation with RVR Condition: Stable Coding Level of Care Code ED Clinical Dietician for Chg Fwd Heart Score HEART Score Components History: Slightly Suspicous EKG: Normal Age: 45-64 yrs Risk Factors: 1 or 2 Risk Factors Troponin: Baseline Trop 16-45 ng/L HEART Score RESULT HEART Score: 3 Documented by User: Ayo Restrepo MD 03/27/25 06:58 HPI - Chest Pain General: Chief Complaint: Chest Pain Stated Complaint: CP Time Seen by Provider: 03/26/25 05:52 Related Data Home Medications ?Medication ?Instructions ?Recorded ?Confirmed montelukast 10 mg tablet 10 mg PO DAILY 02/01/25 03/26/25 rosuvastatin 10 mg tablet 10 mg PO DAILY 02/01/25 03/26/25 hydroxyzine HCl 50 mg tablet 50 mg PO QID 03/26/25 03/26/25 norethindrone 1.5 mg-ethinyl 1 tab PO DAILY 03/26/25 03/26/25 estradiol 30 mcg(21)/iron 75 mg(7) tablet ([place] Fe 1.5/30 (28)) Previous Rx's ?Medication ?Instructions ?Recorded Bilateral wrist brace #1 ea 03/10/24 tizanidine 2 mg tablet 2 mg PO BID PRN muscle spasticity 10/05/24 #20 tabs promethazine 25 mg tablet 25 mg PO Q6H PRN nausea and 11/24/24 vomiting #30 tabs propranolol 20 mg tablet 20 mg PO BID PRN anxiety #60 tabs 12/11/24 sertraline 100 mg tablet 100 mg PO QDAY #30 tabs 12/11/24 sucralfate 100 mg/mL oral 10 ml PO BID 30 days #600 mL 12/31/24 suspension diclofenac sodium 75 mg 75 mg PO BID #60 tabs 01/11/25 tablet,delayed release omeprazole 20 mg capsule,delayed See Rx Instructions .Route 02/05/25 release .COMPLEX #30 caps trazodone 100 mg tablet 100 mg PO .HS PRN insomnia #30 tabs 02/05/25 fluticasone propionate 50 1 spray intranasal BID #16 grams 02/25/25 mcg/actuation nasal spray,suspension (Allergy Relief (fluticasone)) albuterol sulfate 90 mcg/actuation See Rx Instructions .Route 03/24/25 aerosol inhaler .COMPLEX #8.5 grams Allergies Allergy/AdvReac Type Severity Reaction Status Date / Time Penicillins Allergy Severe hives as Verified 02/11/25 09:42 child [facility] ED [facility]: Medical History Borderline high blood pressure Chronic back pain greater than 3 months duration Scoliosis of lumbar spine Dyslipidemia Carpal tunnel syndrome, bilateral Obesity (BMI 30.0-34.9) Lordosis of lumbar region Carpal tunnel syndrome of right wrist Encounter to establish care Screening mammogram for breast cancer Screening for cardiovascular condition Psychiatric care No pertinent family history GERD without esophagitis Family History Father Heart disease Hyperlipidemia Diabetes Grandmother Diabetes Hyperlipidemia Heart disease Ovarian cancer Grandfather Hyperlipidemia Social History Smoking and tobacco/nicotine status: former use of tobacco/nicotine Quit status (tobacco/nicotine): has quit using Year quit tobacco: 2004 Second hand smoke exposure: Yes Alcohol intake: former Year of sobriety/quit date alcohol: 2004 Current gender identity: Female Course Vital Signs: Vital signs: Vital Signs Temperature 97.8 F 03/27/25 03:46 Pulse Rate 79 03/27/25 03:46 Respiratory Rate 17 03/27/25 03:46 Blood Pressure 91/63 03/27/25 03:46 Pulse Oximetry 97 03/27/25 03:46 Oxygen Delivery Me thod Room Air 03/27/25 03:46 MDM - Chest Pain Lab Data 03/27/25 02:57 03/27/25 02:57 Radiology Impressions Chest X-Ray 03/26/25 05:39 IMPRESSION: No acute findings. Chest CTA 03/26/25 06:42 IMPRESSION: 1. Extensive pulmonary emboli. 2. Left hilar mass. 3. Moderate left lower lobe infiltrate likely pneumonia or pulmonary infarct. ADDENDUM: 03/26/25 0748 THIS REPORT CONTAINS FINDINGS THAT MAY BE CRITICAL TO PATIENT CARE. The findings were verbally communicated via telephone conference with PRISCILLA WEBSTER at 7:46 AM CORPORATE TRAVEL CONSULTANT on 03/26/2025. The findings were acknowledged and understood. Abdomen/Pelvis CT 03/26/25 07:34 IMPRESSION: Mild stranding adjacent to the mid right ureter/right gonadal vein. The etiology of this finding is not evident. Laboratory Results WBC 14.61 10^3/uL (3.29-11.43) H 03/26/25 06:05 RBC 4.06 10^6/uL (3.85-5.65) 03/26/25 06:05 Hgb 12.00 g/dL (11.27-16.99) 03/26/25 06:05 Hct 36.2 % (36-47) 03/26/25 06:05 MCV 89.2 fl (85-98) 03/26/25 06:05 MCH 29.6 pg (27-33) 03/26/25 06:05 MCHC 33.1 g/dL (30-55) 03/26/25 06:05 RDW 11.9 % (12.1-15.1) L 03/26/25 06:05 Plt Count 364 10^3/cmm (157-399) 03/26/25 06:05 MPV 9.5 fL (7.4-10.4) 03/26/25 06:05 Neut % (Auto) 82.6 % 03/26/25 06:05 Lymph % (Auto) 11.6 % 03/26/25 06:05 Humphreys % (Auto) 4.4 % 03/26/25 06:05 Eos % (Auto) 0.2 % 03/26/25 06:05 Baso % (Auto) 0.2 % 03/26/25 06:05 Neut # (Auto) 12.07 10^3/uL (1.8-7.7) H 03/26/25 06:05 Lymph # (Auto) 1.7 10^3/uL (0.8-4.8) 03/26/25 06:05 Humphreys # (Auto) 0.6 10^3/uL (0.2-0.9) 03/26/25 06:05 Eos # (Auto) 0.0 10^3/uL (0.0-0.8) 03/26/25 06:05 Baso # (Auto) 0.0 10^3/uL (0.0-0.1) 03/26/25 06:05 Nucleated RBC % (auto) 0 % 03/26/25 06:05 Nucleated RBCs # 0.0 /100WBC 03/26/25 06:05 PT 14.20 SECONDS (12.1-14.9) 03/26/25 06:05 INR 1.03 (0.8-1.2) 03/26/25 06:05 Sodium 134 mmol/L (136-145) L 03/26/25 06:05 Potassium 3.8 mmol/L (3.5-5.1) 03/26/25 06:05 Chloride 95 mmol/L (98-107) L 03/26/25 06:05 Carbon Dioxide 19 mmol/L (22-29) L 03/26/25 06:05 Anion Gap 23.8 (5-19) H 03/26/25 06:05 BUN 19 mg/dL (6-20) 03/26/25 06:05 Creatinine 1.4 mg/dL (0.5-0.9) H 03/26/25 06:05 GFR Calculation 40.7 mL/min (90-130) L 03/26/25 06:05 Glucose 191 mg/dL (65-115) H 03/26/25 06:05 Estimat Average Glucose 114 03/26/25 06:05 Hemoglobin A1c 5.6 % (4.0-6.0) 03/26/25 06:05 Calculated Osmolality 285 mOsm/kg (285-295) 03/26/25 06:05 Calcium 9.3 mg/dL (8.5-10.5) 03/26/25 06:05 Phosphorus 3.9 mg/dL (2.5-4.5) 03/26/25 07:53 Magnesium 1.8 mg/dL (1.7-2.3) 03/26/25 07:53 Total Bilirubin 0.6 mg/dL (0.15-1.2) 03/26/25 06:05 AST 20 U/L (0-32) 03/26/25 06:05 ALT 21 U/L (0-33) 03/26/25 06:05 Alkaline Phosphatase 176 U/L (35-105) H 03/26/25 06:05 CK-MB (CK-2) Cancelled 03/26/25 06:05 CK-MB (CK-2) Rel Index Cancelled 03/26/25 06:05 Troponin T Baseline 8 ng/L (0-10) 03/26/25 06:05 Troponin T 120 Minute 13.12 ng/L (0-10) H 03/26/25 07:53 Delta Troponin T 5.12 ABS# (0-10) 03/26/25 07:53 NT-Pro-B Natriuret Pep 121 pg/mL (0-125) 03/26/25 07:53 Total Protein 8.5 g/dL (6.6-8.7) 03/26/25 06:05 Albumin 4.5 g/dL (3.5-5.2) 03/26/25 06:05 Globulin 4.0 g/dL (1.3-4.6) 03/26/25 06:05 Triglycerides 306 mg/dL (0-150) H 03/26/25 07:53 Cholesterol 201 mg/dL (0-200) H 03/26/25 07:53 LDL Cholesterol, Calc 105 mg/dL (50-129) 03/26/25 07:53 HDL Cholesterol 35 mg/dL (60-100) L 03/26/25 07:53 LDL/HDL Ratio 3.00 RATIO (0.00-3.22) 03/26/25 07:53 Cholesterol/HDL Ratio 5.74 mg/dL (0.0-4.40) H 03/26/25 07:53 TSH 4.00 uIU/mL (0.27-4.20) 03/26/25 07:53 Urine Color Dark yellow (Yellow) A 03/26/25 07:05 Urine Appearance Turbid (CLEAR) A 03/26/25 07:05 Urine pH 5.0 (5-7) 03/26/25 07:05 Ur Specific Wellman 1.037 (1.005-1.030) H 03/26/25 07:05 Urine Protein 2+ (Negative) A 03/26/25 07:05 Urine Glucose (UA) Negative (Normal) 03/26/25 07:05 Urine Ketones Trace (Negative) 03/26/25 07:05 Urine Blood 2+ (Negative) A 03/26/25 07:05 Urine Nitrate Negative (Negative) 03/26/25 07:05 Urine Bilirubin 2+ (Negative) H 03/26/25 07:05 Urine Urobilinogen 1.0 mg/dL (Negative) 03/26/25 07:05 Ur Leukocyte Esterase 1+ (Negative) A 03/26/25 07:05 Urine RBC 21-50 /hpf (0-2) H 03/26/25 07:05 Urine WBC 21-50 /hpf (0-5) H 03/26/25 07:05 Ur Squamous Epith Cells 51-100 /hpf (0-5) 03/26/25 07:05 Amorphous Sediment Not Reportable 03/26/25 07:05 Urine Bacteria 4+ /hpf (NONE) H 03/26/25 07:05 Hyaline Casts 81.92 /lpf 03/26/25 07:05 Coarse Granular Casts 0-4 /lpf H 03/26/25 07:05 Influenza A (PCR) Negative (Negative) 03/26/25 06:13 Influenza Type B (PCR) Negative (Negative) 03/26/25 06:13 RSV (PCR) Negative (Negative) 03/26/25 06:13 SARS-CoV-2 (PCR) Negative (Negative) 03/26/25 06:13 Discharge Plan Discharge Patient Disposition: Admitted As Inpatient Admit Provider: Ayo Restrepo Clinical Impression: Pulmonary embolism, Acute cystitis, Atrial fibrillation with RVR Condition: Stable Coding Level of Care Code ED Clinical Dietician for Chg Fwd Heart Score HEART Score RESULT HEART Score: 3
[2025-03-26 06:31] LABS: Hematocrit 36.2 % (36-47); Hemoglobin 12.00 g/dL (11.27-16.99); Mean Corpuscular HGB Conc 33.1 g/dL (30-55); Mean Corpuscular Hemoglobin 29.6 pg (27-33); Mean Corpuscular Volume 89.2 fl (85-98); Nucleated Red Blood Cells % 0 %; Platelet Count 364 10^3/cmm (157-399); Red Blood Count 4.06 10^6/uL (3.85-5.65); White Blood Count 14.61 10^3/uL (3.29-11.43)
[2025-03-26 06:39] LABS: Troponin(5th) Baseline 8 ng/L (0-10)
[2025-03-26 06:41] LABS: Alanine Aminotransferase 21 U/L (0-33); Albumin Level 4.5 g/dL (3.5-5.2); Alkaline Phosphatase 176 U/L (35-105); Anion Gap 23.8 (5-19); Aspartate Amino Transferase 20 U/L (0-32); Blood Urea Nitrogen 19 mg/dL (6-20); Calcium 9.3 mg/dL (8.5-10.5); Carbon Dioxide 19 mmol/L (22-29); Chloride 95 mmol/L (98-107); Globulin 4.0 g/dL (1.3-4.6); Glucose 191 mg/dL (65-115); Osmolality Calculated 285 mOsm/kg (285-295); Potassium 3.8 mmol/L (3.5-5.1); Sodium 134 mmol/L (136-145); Total Protein 8.5 g/dL (6.6-8.7)
--- NOTE | 2025-03-26 06:42 | CTR_ITS ---
PROCEDURE INFORMATION: Exam: CTA Chest With Contrast Exam date and time: 03/26/2025 7:11 AM Age: 45 years old Clinical indication: Pain; Chest pressure; Additional info: Cp TECHNIQUE: Imaging protocol: Computed tomographic angiography of the chest with contrast. Exam focused on the arteries. 3D rendering (Not supervised by radiologist): MIP and/or 3D reconstructed images were created by the technologist. Radiation optimization: All CT scans at this facility use at least one of these dose optimization techniques: automated exposure control; mA and/or kV adjustment per patient size (includes targeted exams where dose is matched to clinical indication); or iterative reconstruction. Contrast material: OMNI 350; Contrast volume: 58 ml; Contrast route: INTRAVENOUS (IV); COMPARISON: CR (CHEST, ) 03/26/2025 5:52 AM RADIATION DOSE METRICS: Total DLP (mGy-cm): 404.62 FINDINGS: Pulmonary arteries: Extensive pulmonary emboli are present. The largest is lobar and to the right lower lobe with smaller emboli to each lower lobe and the left upper lobe. Aorta: Unremarkable. No aortic aneurysm. No aortic dissection. Lungs: There is a left hilar measuring 2.7 x 4.0 cm in size. This is probably neoplastic. Scattered partially consolidated infiltrate in the left lower lobe, postobstructive atelectasis or more likely pulmonary infarct or pneumonia. Pleural spaces: Unremarkable. No pneumothorax. No pleural effusion. Heart: The RV LV ratio is less than 1, no obvious right heart strain. Lymph nodes: Unremarkable. No enlarged lymph nodes. Gallbladder and biliary ducts: Cholelithiasis. Bones/joints: Unremarkable. No acute fracture. Soft tissues: Unremarkable. Other findings: No acute findings. CT/CT angio chest PE protcl [id number] IMPRESSION: 1. Extensive pulmonary emboli. 2. Left hilar mass. 3. Moderate left lower lobe infiltrate likely pneumonia or pulmonary infarct.
[2025-03-26 06:59] LABS: Respiratory Syncytial Virus Ce NEGATIVE (Negative); SARS-CoV-2 PCR NEGATIVE (Negative)
[2025-03-26 07:13] LABS: Glucose Urine UA Negative (Normal); Nitrate Urine Negative (Negative)
[2025-03-26 07:15] LABS: Add Urine Microscopic? YES
[2025-03-26] MEDS: iohexol 350 mg/mL 500 mL Btl (per mL) IV (07:23)
[2025-03-26 07:29] LABS: Specific Gravity, Urine 1.037 (1.005-1.030); UA Slide Review UA Slide Review Perf
--- NOTE | 2025-03-26 07:34 | CTR_ITS ---
PROCEDURE INFORMATION: Exam: CT Abdomen And Pelvis Without Contrast Exam date and time: 03/26/2025 8:00 AM Age: 45 years old Clinical indication: Abdominal pain; Prior surgery; Surgery date: 6+ months; Surgery type: Tubal; Additional info: Abd pain TECHNIQUE: Imaging protocol: Computed tomography of the abdomen and pelvis without contrast. Radiation optimization: All CT scans at this facility use at least one of these dose optimization techniques: automated exposure control; mA and/or kV adjustment per patient size (includes targeted exams where dose is matched to clinical indication); or iterative reconstruction. COMPARISON: CT abdomen pelvis w con* [id number] 11/15/2024 7:56 AM RADIATION DOSE METRICS: Total DLP (mGy-cm): 1043.17 FINDINGS: Lungs: Left lower lobe pulmonary infiltrate with trace effusion. Liver: Normal. No mass. Gallbladder and biliary ducts: Cholelithiasis. Cholelithiasis. Pancreas: Normal. No ductal dilation. Spleen: Normal. No splenomegaly. Adrenal glands: Normal. No mass. Kidneys and ureters: There is mild periureteral stranding adjacent to the mid right ureter, etiology unknown. No obstructive changes are present. Correlate for signs of infection. Stomach and bowel: Unremarkable. No obstruction. No mucosal thickening. Appendix: No evidence of appendicitis. Intraperitoneal space: Unremarkable. No free air. No significant fluid collection. Vasculature: Unremarkable. No abdominal aortic aneurysm. Lymph nodes: Unremarkable. No enlarged lymph nodes. Urinary bladder: Unremarkable as visualized. Reproductive: Unremarkable as visualized. Bones/joints: Unremarkable. No acute fracture. Soft tissues: Unremarkable. CT/CT kidney stone [id number] IMPRESSION: Mild stranding adjacent to the mid right ureter/right gonadal vein. The etiology of this finding is not evident.
--- NOTE | 2025-03-26 07:39 | ECG_ITS ---
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 Measurements Intervals [place] Rate: 112 P: 0 DE: 0 QRS: 30 QRSD: 88 T: 46 QT: 344 QTc: 471 Interpretive Statements SINUS TACHYCARDIA BLOCKED PREMATURE ATRIAL CONTRACTION NONSPECIFIC T-WAVE ABNORMALITY ABNORMAL RHYTHM ECG Compared to ECG 03/26/2025 05:50:16 NO SIGNIFICANT CHANGE Electronically Signed On 03-27-2025 17:46:33 HEALTH DIAGNOSTICS TEACHER by Farzad Loza M.D. [email or web address]
[2025-03-26] MEDS: morphine 4 mg/mL SDV 1 mL IVP ×2 (08:15→13:49)
[2025-03-26] MEDS: cefTRIAXone 1,000 mg SDV 1000 MG IVP (08:15)
[2025-03-26 08:18] LABS: Troponin 5 2HR 13.12 ng/L (0-10); Troponin 5 2HR Delta 5.12 ABS# (0-10)
[2025-03-26 08:27] LABS: NT Pro B Type Natriuretic Pept 121 pg/mL (0-125)
[2025-03-26] MEDS: AMIODARONE HCL/D5W 900 MG/500 ML BAG 33.33 MG IV (08:46)
--- NOTE | 2025-03-26 09:00 | PM.HP ---
Documented by User: Letitia Flor NP 03/26/25 19:53 Providers/Chief Complaint Admitting Physician: Ayo Restrepo Primary Care Provider: Hillary Newton NP Chief Complaint: CP History of Present Illness Graciela Jackson is a 45 year old female w/ pmhx dyslipidemia, and HTN presents to the emergency department via EMS with C/O of chest pain. Patient will be admitted to hospitalist services for further medical management of pulmonary embolism, new onset A-fib RVR, and community-acquired pneumonia. Patient resting in bed on RA, noted to be at bedside during of my evaluation. Patient states she has been feeling sick/fatigued since 03/20 with associated signs and symptoms of N/V/D, SOB, fever (highest 102 ?F), chest pain, productive cough (thick green phlegm). She reports alleviating factors included increasing home albuterol use, Tylenol, and warm showers. Patient denies palpitations, chest pain, and syncope at this time. While in ED a CBC, CMP, and Trop was collected and reviewed as follows: WBC 14.61, Neut 12.07, Na 134, Cl 95, Anion Gap 23.8, Platen Grinder 1.4, glocuse 191, Michelle Phos 176, Baseline Trop 8, Trop 2hr 13.12, Delta Trop 5.12. A UA was collected and reviewed likely contaminated, orders placed for additional UA. A flu/covid swabs was negative. Pt received the following medications while in ED: 2L NS bolus, Lovenox 100mg, Rocephin 1000mg IV, Aspirin 324 mg, Toradol 15mg IVP, Benadryl 50 mg IVP, Reglan 10 mg IVP, morphine 4 mg IVP. Medications/Allergies Home Medications ?Medication ?Instructions ?Recorded ?Confirmed ?Last Taken ?Type Bilateral wrist brace #1 ea 03/10/24 03/26/25 Unknown Rx tizanidine 2 mg tablet 2 mg PO BID PRN muscle spasticity 10/05/24 03/26/25 03/25/25 20:00 Rx #20 tabs promethazine 25 mg tablet 25 mg PO Q6H PRN nausea and 11/24/24 03/26/25 03/22/25 Rx vomiting #30 tabs propranolol 20 mg tablet 20 mg PO BID PRN anxiety #60 tabs 12/11/24 03/26/25 03/22/25 Rx sertraline 100 mg tablet 100 mg PO QDAY #30 tabs 12/11/24 03/26/25 03/22/25 Rx sucralfate 100 mg/mL oral 10 ml PO BID 30 days #600 mL 12/31/24 03/26/25 01/31/25 Rx suspension diclofenac sodium 75 mg 75 mg PO BID #60 tabs 01/11/25 03/26/25 03/22/25 Rx tablet,delayed release montelukast 10 mg tablet 10 mg PO DAILY 02/01/25 03/26/25 03/22/25 History rosuvastatin 10 mg tablet 10 mg PO DAILY 02/01/25 03/26/25 01/31/25 History omeprazole 20 mg capsule,delayed See Rx Instructions .Route 02/05/25 03/26/25 03/22/25 Rx release .COMPLEX #30 caps trazodone 100 mg tablet 100 mg PO .HS PRN insomnia #30 tabs 02/05/25 03/26/25 03/22/25 20:00 Rx fluticasone propionate 50 1 spray intranasal BID #16 grams 02/25/25 03/26/25 Unknown Rx mcg/actuation nasal spray,suspension (Allergy Relief (fluticasone)) albuterol sulfate 90 mcg/actuation See Rx Instructions .Route 03/24/25 03/26/25 03/19/25 Rx aerosol inhaler .COMPLEX #8.5 grams hydroxyzine HCl 50 mg tablet 50 mg PO QID 03/26/25 03/26/25 03/22/25 History norethindrone 1.5 mg-ethinyl 1 tab PO DAILY 03/26/25 03/26/25 03/22/25 History estradiol 30 mcg(21)/iron 75 mg(7) tablet (Blisovi Fe 1.5/30 ()) Allergies Allergy/AdvReac Type Severity Reaction Status Date / Time Penicillins Allergy Severe hives as Verified 02/11/25 09:42 child PFSH Acute PFSH: Medical History Borderline high blood pressure Chronic back pain greater than 3 months duration Scoliosis of lumbar spine Dyslipidemia Carpal tunnel syndrome, bilateral Obesity (BMI 30.0-34.9) Lordosis of lumbar region Carpal tunnel syndrome of right wrist Encounter to establish care Screening mammogram for breast cancer Screening for cardiovascular condition Psychiatric care No pertinent family history GERD without esophagitis Family History Father Heart disease Hyperlipidemia Diabetes Grandmother Diabetes Hyperlipidemia Heart disease Ovarian cancer Grandfather Hyperlipidemia Social History Smoking and tobacco/nicotine status: former use of tobacco/nicotine Quit status (tobacco/nicotine): has quit using Year quit tobacco: 2004 Second hand smoke exposure: Yes Alcohol intake: former Year of sobriety/quit date alcohol: 2004 Current gender identity: Female Vitals/I&O/Wt Last Vital Signs Temp 97.8 F 03/26/25 05:53 Pulse 117 H 03/26/25 08:52 Resp 16 03/26/25 08:47 BP 109/82 03/26/25 08:52 Pulse Ox 96 03/26/25 08:52 O2 Del Method Room Air 03/26/25 07:11 03/25/25 03/26/25 03/26/25 22:59 06:59 14:59 Intake Total 1000 / 1000 Balance 1000 / 1000 Weight last 48 hrs Weight 104.78 kg Physical Exam Narrative: General: A&Ox4, lying comfortably w/o any distress. On RA HEENT: Normo-cephalic, atraumatic, grossly unremarkable exam Cardio: Sinus tachycardia, normal S1-S2 w/o any murmurs, rubs, or gallops and JVD normal Respiratory: Diminished on auscultation w/o any wheezes, stridor, rhonchi GI: N/V/D, Abd soft, non-tender, non-distended, normo-active bowel sounds present Neuro: Normal speech, no sensory deficits noted Behavior: Appropriate and cooperative Extremities: Adequate palpable pulses. Data 03/26/25 06:05 03/26/25 06:05 Other Labs: 03/26: Abd/Pelvis CT: Mild stranding adjacent to the mid right ureter/right gonadal vein. The etiology of this finding is not evident. 03/26: Chest CTA: reviewed and results as follows: Extensive pulmonary emboli. Left hilar mass. Moderate left lower lobe infiltrate likely pneumonia or pulmonary infarct. 03/26: CXR reviewed and results as follows: No acute findings. 738: EKG reviewed and results as follows: A-fib, no ST elevation, QRS 88, QTc 410, HR 112 549: EKG reviewed and results as follows: ST, no st elevation, QRS 77, QTc 482, HR 121 A&P Assessment and plan 1. Pulmonary embolism: 2. Atrial fibrillation with RVR: 3. Community acquired pneumonia: 4. Acute cystitis: 5. Dyslipidemia: PDMP PDMP Reviewed: Not Reviewed Attestations Medical Necessity Statement*: Pulmonary embolism ? 03/26: Chest CTA: reviewed and results as follows: Extensive pulmonary emboli. ? On room air currently ? Continuous pulse oximetry ? Supplemental O2 to keep saturations greater than 90% ?03/26 initiated: Lovenox 100 mg subcu given in ED, continue therapeutic dose Lovenox subcu BID Suspected new Onset A-fib with RVR r/o Updated to Sinus Tachycardia ? Likely secondary to pulmonary embolism ? 738: EKG reviewed and results as follows: Sinus tachycardia, no ST elevation, QRS 88, QTc 410, HR 112 ? 03/26:Cardiac enzymes: baseline Trop 8, Trop 2hr 13.12, Delta Trop 5.12 ? 03/26: Amiodarone IV started in ED- Discontinue 03/26 at 1345. ? Echo ordered, pending ? 03/26 Lovenox 100 mg subcu given in ED, continue therapeutic dose Lovenox subcu BID ? Cardiac monitoring Community-acquired pneumonia ? 03/26: Chest CTA: reviewed and results as follows: Moderate left lower lobe infiltrate likely pneumonia or pulmonary infarct. ? Flu/COVID swab: Negative. Respiratory panel ordered, pending. ? Urine Legionella and bacterial ordered, pending. ? Procalcitonin ordered, pending ? Sputum cultures and Gram stain ordered, pending ? Continue IV azithromycin , Rocephin 1,000mg IVP ? IVF NS at 75ml/hr ? Albuterol inhalation q6h PRN ? Incentive spirometry q1hr Suspected acute cystitis ?03/26: A UA was collected and reviewed likely contaminated, orders placed for additional UA- NEGATIVE Dyslipidemia ? Lipid panel ordered, pending. ? Continue home medication, Rosuvastatin 10mg PO GERD ? On home medication of omeprazole 20 mg p.o, hold (non-formulary) ? Protonix 40 mg p.o. daily Depression Anxiety ? Continue home medication Zoloft 100 mg PO dly ? Continue home medication propranolol 20 mg PO BID PRN Left Lung hilar mass ? 03/26: Chest CTA: Left hilar mass, incidental finding. ? Will consult Dr. [place], for possible outpatient bronchoscopy planning CODE STATUS: Full code GI prophylaxis: Protonix 40 mg p.o. daily VTE prophylaxis: SCDs, therapeutic dose Lovenox subqu Coding Level of Care Code 11776 Diagnoses Pulmonary embolism I26.99 Atrial fibrillation with RVR I48.91 Community acquired pneumonia J18.9 Acute cystitis N30.00 Dyslipidemia E78.5 Time Spent (min) 70 Documented by User: Rosalba Denis, PHD INTERN, FIBERGLASS SKI MAKER 03/26/25 20:10 Providers/Chief Complaint Chief Complaint: CP Review of Systems Const: Denies: fever(s), chills, change in weight or fatigue Eyes: Denies: change in vision Card: Reports: chest pain and irregular heart rhythm Resp: Denies: dyspnea : Denies: dysuria Skin/Breast: Denies: rash, nipple discharge or breast mass Neuro: Denies: seizure-like activity Medications/Allergies Home Medications ?Medication ?Instructions ?Recorded ?Confirmed ?Last Taken ?Type Bilateral wrist brace #1 ea 03/10/24 03/26/25 Unknown Rx tizanidine 2 mg tablet 2 mg PO BID PRN muscle spasticity 10/05/24 03/26/25 03/25/25 20:00 Rx #20 tabs promethazine 25 mg tablet 25 mg PO Q6H PRN nausea and 11/24/24 03/26/25 03/22/25 Rx vomiting #30 tabs propranolol 20 mg tablet 20 mg PO BID PRN anxiety #60 tabs 12/11/24 03/26/25 03/22/25 Rx sertraline 100 mg tablet 100 mg PO QDAY #30 tabs 12/11/24 03/26/25 03/22/25 Rx sucralfate 100 mg/mL oral 10 ml PO BID 30 days #600 mL 12/31/24 03/26/25 01/31/25 Rx suspension diclofenac sodium 75 mg 75 mg PO BID #60 tabs 01/11/25 03/26/25 03/22/25 Rx tablet,delayed release montelukast 10 mg tablet 10 mg PO DAILY 02/01/25 03/26/25 03/22/25 History rosuvastatin 10 mg tablet 10 mg PO DAILY 02/01/25 03/26/25 01/31/25 History omeprazole 20 mg capsule,delayed See Rx Instructions .Route 02/05/25 03/26/25 03/22/25 Rx release .COMPLEX #30 caps trazodone 100 mg tablet 100 mg PO .HS PRN insomnia #30 tabs 02/05/25 03/26/25 03/22/25 20:00 Rx fluticasone propionate 50 1 spray intranasal BID #16 grams 02/25/25 03/26/25 Unknown Rx mcg/actuation nasal spray,suspension (Allergy Relief (fluticasone)) albuterol sulfate 90 mcg/actuation See Rx Instructions .Route 03/24/25 03/26/25 03/19/25 Rx aerosol inhaler .COMPLEX #8.5 grams hydroxyzine HCl 50 mg tablet 50 mg PO QID 03/26/25 03/26/25 03/22/25 History norethindrone 1.5 mg-ethinyl 1 tab PO DAILY 03/26/25 03/26/25 03/22/25 History estradiol 30 mcg(21)/iron 75 mg(7) tablet (Blisovi Fe 1.5/30 ()) Allergies Allergy/AdvReac Type Severity Reaction Status Date / Time Penicillins Allergy Severe hives as Verified 02/11/25 09:42 child PFSH Acute PFSH: Medical History Borderline high blood pressure Chronic back pain greater than 3 months duration Scoliosis of lumbar spine Dyslipidemia Carpal tunnel syndrome, bilateral Obesity (BMI 30.0-34.9) Lordosis of lumbar region Carpal tunnel syndrome of right wrist Encounter to establish care Screening mammogram for breast cancer Screening for cardiovascular condition Psychiatric care No pertinent family history GERD without esophagitis Family History Father Heart disease Hyperlipidemia Diabetes Grandmother Diabetes Hyperlipidemia Heart disease Ovarian cancer Grandfather Hyperlipidemia Social History Smoking and tobacco/nicotine status: former use of tobacco/nicotine Quit status (tobacco/nicotine): has quit using Year quit tobacco: 2004 Second hand smoke exposure: Yes Alcohol intake: former Year of sobriety/quit date alcohol: 2004 Current gender identity: Female Data 03/26/25 06:05 03/26/25 06:05 A&P Assessment and plan 1. Pulmonary embolism: 2. Atrial fibrillation with RVR: 3. Community acquired pneumonia: 4. Acute cystitis: 5. Dyslipidemia: PDMP PDMP Reviewed: Not Reviewed Diagnoses Pulmonary embolism I26.99 Atrial fibrillation with RVR I48.91 Community acquired pneumonia J18.9 Acute cystitis N30.00 Dyslipidemia E78.5 Time Spent (min) 70
--- NOTE | 2025-03-26 10:32 | ECG_ITS ---
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 Measurements Intervals [place] Rate: 116 P: 53 MT: 122 QRS: 17 QRSD: 89 T: 41 QT: 340 QTc: 473 Interpretive Statements SINUS TACHYCARDIA POSSIBLE LEFT ATRIAL ENLARGEMENT [-0.1mV P-WAVE IN V1/V2] NONSPECIFIC T-WAVE ABNORMALITY ABNORMAL RHYTHM ECG Compared to ECG 03/26/2025 08:11:11 SINUS ARRHYTHMIA NO LONGER PRESENT Electronically Signed On 03-27-2025 16:03:16 CRUSHER AND BINDER OPERATOR by Farzad Loza M.D. [id number] [id number]
[2025-03-26] MEDS: HYDROcodone-acetaminophen 5-325 mg Tablet 1 TAB PO ×3 (11:10→21:20)
[2025-03-26 11:20] LABS: Glucose Urine UA Negative (Normal); Nitrate Urine Negative (Negative)
[2025-03-26 11:31] LABS: Estmated Average Glucose 114; Hemoglobin A1C 5.6 % (4.0-6.0)
[2025-03-26 11:33] LABS: INR 1.03 (0.8-1.2); Prothrombin Time 14.20 SECONDS (12.1-14.9)
[2025-03-26 11:34] LABS: Specific Gravity, Urine 1.076 (1.005-1.030); UA Slide Review UA Slide Review Perf
[2025-03-26 11:47] LABS: Magnesium 1.8 mg/dL (1.7-2.3); Thyroid Stimulating Hormone 4.00 uIU/mL (0.27-4.20)
--- NOTE | 2025-03-26 11:52 | USCV_ITS ---
Graciela Jackson Age: 45 Gender: F : 1980 Exam Date: 03/26/2025 12:53 Ordering Phys: Rosalba Denis [id number] SALES EXECUTIVE Technologist: Exam Location: [facility] – [place] Indication: cp sob BP: 133 / 74 HR: 99 Rhythm: Sinus Technical Quality: Adequate MEASUREMENTS (Male / Female) Normal Values 2D ECHO LV Diastolic Diameter PLAX 4.2 cm 4.2 - 5.9 / 3.9 - 5.3 cm IVS Systolic Thickness 1.5 cm LVPW Systolic Thickness 2.0 cm LVOT Diameter 1.8 cm LV Ejection Fraction 2D Teich 62.0 % LV Ejection Fraction MOD 4C 56.5 % LV Ejection Fraction MOD 2C 76.1 % LV Ejection Fraction 2C AL 77.0 % LA Diameter 3.4 cm RA Systolic Volume 4C AL 36.1 ml RA Systolic Volume 4C MOD 35.0 ml Aorta at Sinotubular Diameter 2.5 cm IVC Diameter 1.5 cm M-MODE LA Ao Ratio MM 1.2 AV Cusp Separation MM 2.1 cm DOPPLER AV Peak Velocity 157.0 cm/s LVOT Peak Velocity 115.0 cm/s AV Area Cont Eq vti 2.2 cm squared AV Area Cont Eq pk 1.8 cm squared MV Peak Velocity 114.0 cm/s MV Area PHT 3.4 cm squared Mitral E to A Ratio 0.9 TR Peak Velocity 156.0 cm/s TR Peak Gradient 9.7 mmHg TV Peak E Velocity 88.0 cm/s PV Peak Velocity 117.0 cm/s FINDINGS Left Ventricle Normal left ventricular size, systolic function and wall thickness with no regional wall motion abnormality. Left ventricular ejection fraction is 62%. Normal left ventricular diastolic function. Right Ventricle Normal right ventricular size and systolic function. Right Atrium Normal right atrial size. Left Atrium Normal left atrial size. IA Septum Normal appearance of the interatrial septum. Mitral Valve Normal mitral valve structure. No mitral valve stenosis or regurgitation. Aortic Valve Normal aortic valve structure. No aortic valve stenosis or regurgitation. Tricuspid Valve Normal tricuspid valve structure. Trace regurgitation. Normal pulmonary pressure. Pulmonic Valve Normal pulmonic valve structure. No pulmonic valve stenosis or regurgitation. Pericardium Small pericardial effusion posteriorly without tamponade. Aorta Normal diameter of the aortic root and ascending thoracic aorta. IVC Normal IVC diameter. CONCLUSIONS Normal left ventricular size, systolic function and wall thickness with ejection fraction of 62%. Normal right ventricular size and systolic function. No significant valvular abnormalities. Small pericardial effusion posteriorly without tamponade. Farzad Loza MD, FACC (Electronically Signed) Final Date: 26 March 2025 14:22 S
[2025-03-26 12:16] LABS: Troponin 5 6HR 9.63 ng/L (0-10); Troponin 5 6HR Delta 1.63 ng/L (0-12)
--- NOTE | 2025-03-26 12:26 | ECG_ITS ---
[employer] Test Date: 2025-03-26 Pat Name: Graciela Jackson Department: Room: 107 Gender: Female Giver: : 1980 Requested By: Rosalba Rizzo Order Number: [id number] Zoey MD: Farzad Loza M.D. Measurements Intervals [place] Rate: 117 P: 56 TX: 119 QRS: 22 QRSD: 90 T: 46 QT: 355 QTc: 497 Interpretive Statements SINUS TACHYCARDIA WITH SHORT TX INTERVAL NONSPECIFIC T-WAVE ABNORMALITY ABNORMAL RHYTHM ECG Compared to ECG 03/26/2025 10:32:41 Short TX interval now present T-wave abnormality still present Electronically Signed On 03-27-2025 15:55:06 MICROWAVE OVEN ASSEMBLER by Farzad Loza M.D. [id number] [id number]
[2025-03-26 13:00] LABS: Cholesterol 201 mg/dL (0-200); HDL Cholesterol 35 mg/dL (60-100); Triglycerides 306 mg/dL (0-150)
[2025-03-26 13:07] LABS: Coronavirus 229E,HKU1,NL63,OC4 Not Detected (NOT DETECT); Parainfluenza Virus Type 1 Not Detected (NOT DETECT); Parainfluenza Virus Type 2 Not Detected (NOT DETECT); Parainfluenza Virus Type 3 Not Detected (NOT DETECT); Parainfluenza Virus Type 4 Not Detected (NOT DETECT); SARS-COV-2 Not Detected (NOT DETECT)
[2025-03-26] MEDS: lactobacillus 1 Tablet 1 TAB PO (16:16)
[2025-03-26] MEDS: fluticasone nasal spray 16gm Btl 1 SPRAY INTRANASAL (16:16)
[2025-03-26 18:47] LABS: Glucose Urine UA Negative (Normal); Nitrate Urine Negative (Negative)
[2025-03-26 18:48] LABS: Specific Gravity, Urine 1.065 (1.005-1.030)
[2025-03-26 18:51] LABS: Add Urine Microscopic? YES
[2025-03-27] VITALS (12 sets, daily range): BP systolic 82–138; BP diastolic 57–93; PULSE 75–119; RESP 14–24; TEMP 35.7–36.7; O2SAT 96–99
[2025-03-27 03:28] LABS: Hematocrit 29.1 % (36-47); Hemoglobin 9.40 g/dL (11.27-16.99); Mean Corpuscular HGB Conc 32.3 g/dL (30-55); Mean Corpuscular Hemoglobin 29.3 pg (27-33); Mean Corpuscular Volume 90.7 fl (85-98); Nucleated Red Blood Cells % 0 %; Platelet Count 281 10^3/cmm (157-399); Red Blood Count 3.21 10^6/uL (3.85-5.65); White Blood Count 9.52 10^3/uL (3.29-11.43)
[2025-03-27 03:44] LABS: INR 1.04 (0.8-1.2); Prothrombin Time 14.40 SECONDS (12.1-14.9)
[2025-03-27 03:55] LABS: Alanine Aminotransferase 15 U/L (0-33); Albumin Level 3.6 g/dL (3.5-5.2); Alkaline Phosphatase 130 U/L (35-105); Anion Gap 18.0 (5-19); Aspartate Amino Transferase 12 U/L (0-32); Blood Urea Nitrogen 24 mg/dL (6-20); Calcium 8.6 mg/dL (8.5-10.5); Carbon Dioxide 22 mmol/L (22-29); Chloride 97 mmol/L (98-107); Globulin 3.6 g/dL (1.3-4.6); Glucose 123 mg/dL (65-115); Magnesium 2.1 mg/dL (1.7-2.3); Osmolality Calculated 281 mOsm/kg (285-295); Potassium 4.0 mmol/L (3.5-5.1); Sodium 133 mmol/L (136-145); Total Protein 7.2 g/dL (6.6-8.7)
[2025-03-27] MEDS: lactobacillus 1 Tablet 1 TAB PO ×2 (04:48→17:08)
[2025-03-27] MEDS: fluticasone nasal spray 16gm Btl 1 SPRAY INTRANASAL ×2 (04:49→17:08)
[2025-03-27] MEDS: cefTRIAXone 1,000 mg SDV 1000 MG IVP (09:37)
[2025-03-27] MEDS: pantoprazole 40 mg SDV IVP ×2 (09:38→21:00)
[2025-03-27] MEDS: sucralfate 1 gm/10 mL Oral Liq UDC PO ×3 (09:39→21:00)
[2025-03-27 09:42] LABS: Hematocrit 31.4 % (36-47); Hemoglobin 10.10 g/dL (11.27-16.99)
[2025-03-27 10:05] LABS: Ferritin 710 ng/mL (15-150); Iron 23 ug/dL (37-145); Lactic Sepsis W/Reflex 1.9 mmol/L (0.5-2.2); Total Iron Binding Capacity 207 mcg/dl; Unsaturated Iron Binding 184 ug/dL (112-347)
[2025-03-27] MEDS: HYDROcodone-acetaminophen 5-325 mg Tablet 1 TAB PO ×3 (11:14→21:00)
--- NOTE | 2025-03-27 11:21 | CTR_ITS ---
PROCEDURE INFORMATION: Exam: CT Abdomen And Pelvis Without Contrast Exam date and time: 03/27/2025 11:32 AM Age: 45 years old Clinical indication: Other: R/O retroperitoneal bleed; Prior surgery; Surgery date: 6+ months; Surgery type: Tubal TECHNIQUE: Imaging protocol: Computed tomography of the abdomen and pelvis without contrast. Radiation optimization: All CT scans at this facility use at least one of these dose optimization techniques: automated exposure control; mA and/or kV adjustment per patient size (includes targeted exams where dose is matched to clinical indication); or iterative reconstruction. COMPARISON: 1. CT angio chest PE protcl [id number] 03/26/2025 7:[address] kidney stone [id number] 03/26/2025 8:00 AM RADIATION DOSE METRICS: Total DLP (mGy-cm): 1101.53 FINDINGS: Limitations: Limited assessment without contrast. Lungs: Persistent pleural-based airspace consolidation within the posteroinferior aspect of the left lower lobe. Findings may correspond to atelectatic change or pneumonia. Clinical correlation is recommended. Minimal atelectatic changes present within the lingula and right middle lobe. Pleural spaces: Near-complete interval resolution of previously seen left pleural effusion. Heart: No cardiomegaly or pericardial effusion. Diaphragm: No hiatal hernia. Liver: Mild hepatomegaly. Mild decreased density throughout the liver suggestive of mild fatty infiltration. The liver is otherwise unremarkable for a noncontrast evaluation. Gallbladder and biliary ducts: Multiple gallstones are present. No pericholecystic inflammatory changes to suggest cholecystitis. No intrahepatic ductal dilatation. Normal caliber of the common bile duct. Pancreas: The pancreas is unremarkable. Spleen: The spleen is unremarkable. Adrenal glands: The adrenal glands are unremarkable. Kidneys and ureters: Right kidney is unremarkable as visualized. No mass or stone seen. No hydronephrosis. Left kidney is unremarkable as visualized. No mass or stone seen. No hydronephrosis. There is persistent periureteral stranding along the mid aspect of the right ureter as the ureter courses over the iliac vessels. Periureteral stranding is also present along the mid to distal aspect of the left ureter. Ureters appear normal in caliber. There are no discrete calcified stones within the right or left ureter. Stomach and bowel: The stomach appears unremarkable. Small bowel loops are normal in caliber no evidence of a small bowel obstruction. Colon appears unremarkable. No evidence of acute colitis. Appendix: Normal appendix. Intraperitoneal space: There is mild stranding within the peritoneal fat along the anterior margin of the right and left psoas muscle. There is mild stranding within the peritoneal fat within the pelvis. No significant peritoneal free fluid. No free peritoneal air. Vasculature: Normal caliber of the infrarenal abdominal aorta. Periaortic stranding is present along the infrarenal abdominal aorta and extending along the proximal right and left common iliac arteries. There is stranding along the right and left external iliac arteries. Lack of intravenous contrast limits evaluation of the vasculature. Paracaval stranding is present below the level of the renal veins and along the proximal common iliac veins. Lymph nodes: There are no enlarged or suspicious intra-abdominal, pelvic or retroperitoneal lymph nodes. Urinary bladder: Dense material is present within the bladder, more likely from prior contrast administration. Dense material can also be seen in the setting of hemorrhage. No bladder wall nodularity or bladder calculus. Reproductive: Uterus is unremarkable. No suspicious adnexal lesion seen. Slight soft tissue fullness in the presumed position of the right ovary appears unchanged. Left ovary appears unremarkable. Bones/joints: There is edema and stranding within the musculature along the anterior margin of the right and left hip which has increased. No acute osseous abnormality. Soft tissues: Scattered areas of stranding within the subcutaneous fat compatible with subcutaneous injections. CT/CT abdomen pelvis wo con [id number] IMPRESSION: 1. Persistent peripheral airspace consolidation within the left lower lobe. Findings may correspond to areas of pulmonary infarct given patient's history of extensive pulmonary emboli. 2. Persistent para-aortic and paracaval stranding along the lower infrarenal abdominal aorta and inferior vena cava. There is persistent stranding along the iliac vasculature. Interval increase in subcutaneous edema and stranding within the musculature along the anterior right and left hip. Vasculitis is not excluded. Given patient's significant pulmonary emboli, central venous thrombosis should also be considered. Follow-up bilateral lower extremity ultrasound is recommended. CT angiogram of the abdominal aorta with delayed venous imaging should also be considered. 3. There are no renal or ureteral calculi. No hydronephrosis or hydroureter. 4. Cholelithiasis without evidence of acute cholecystitis.
--- NOTE | 2025-03-27 12:17 | USR_ITS ---
PROCEDURE INFORMATION: Exam: US Duplex Scan of Aorta, Inferior Vena Cava, Iliac Vasculature, or Bypass Grafts, Complete Exam date and time: 03/27/2025 1:54 PM Age: 45 years old Clinical indication: Abnormal findings; Abnormal imaging test; Exam and body structure: Ct- pe us- dvt; Additional info: Central venous thrombosis? TECHNIQUE: Imaging protocol: Real-time duplex ultrasound scan of the Aorta, IVC, iliac vasculature, or bypass grafts in the abdomen with color Doppler flow and spectral waveform analysis with image documentation. Complete exam. COMPARISON: US transvaginal [id number] 11/15/2024 10:21 AM FINDINGS: Aorta: Aorta was not imaged on this exam. Inferior vena cava: Proximal aspect of the inferior vena cava is patent. Mid and distal aspect of the inferior vena cava could not be adequately assessed secondary to patient size and overlying bowel gas. Waveforms do demonstrate some phasicity but diminished as compared to the proximal aspect of the inferior vena cava. Other vasculature: Occlusive deep venous thrombosis is present within the right and left iliac veins. US/[place] IVC [id number] IMPRESSION: Deep venous thrombosis is present within the visualized portion of the right and left iliac veins. Proximal aspect of the inferior vena cava appears patent and demonstrates normal phasicity. The mid and distal aspect of the inferior vena cava could not be adequately assessed secondary to overlying bowel gas . Waveforms demonstrate some phasicity but diminished as compared to the proximal IVC. This does raise concern for potential nonocclusive thrombus within the mid and distal inferior vena cava. Venous thrombosis involving the mid and distal inferior vena cava cannot be excluded. Consideration for IVC filter may be indicated. Clinical correlation and follow-up is recommended. COMMENTS: THIS REPORT CONTAINS FINDINGS THAT MAY BE CRITICAL TO PATIENT CARE. The exam findings were verbally communicated by me to DRAGAN WORKMAN via telephone conference at 2:28 PM FLATWORK WASHER on 03/27/2025. The findings were acknowledged and understood. This does raise
--- NOTE | 2025-03-27 12:17 | USR_ITS ---
PROCEDURE INFORMATION: Exam: US Duplex Lower Extremity Veins, Bilateral Exam date and time: 03/27/2025 1:13 PM Age: 45 years old Clinical indication: Abnormal findings; Abnormal imaging study of limbs; Pe; CT; Additional info: Dvt TECHNIQUE: Imaging protocol: Real-time duplex ultrasound of the bilateral extremities with 2-D mann scale, color Doppler flow and spectral waveform analysis including responses to compression and other maneuvers (when performed) with image documentation. Complete exam focused on the lower extremity veins. COMPARISON: US transvaginal [id number] 11/15/2024 10:21 AM FINDINGS: Right deep veins: Extensive deep venous thrombosis involving the entire deep venous system within the right lower extremity. Venous thrombosis involves the right common femoral, deep femoral, femoral and popliteal veins. Deep venous thrombosis is also detected within the right calf veins. Left deep veins: Deep venous thrombosis involving the entire visualized deep venous system within the left lower extremity. Thrombus involves the left common femoral, profunda femoris, left femoral and left popliteal veins. There is also thrombus detected within the left calf veins. Superficial veins: Deep venous thrombosis involving the right greater saphenous vein. Deep venous thrombosis within the left greater saphenous vein. Soft tissues: Overlying subcutaneous edema. US/[place] [id number] IMPRESSION: Extensive deep venous thrombosis involving the entire visualized deep venous system within the right and left lower extremity. Waveforms within the right and left common femoral vein are dampened suggesting more central venous thrombosis, potentially involving the iliac veins and inferior vena cava.
[2025-03-27 12:38] LABS: Hematocrit 28.2 % (36-47); Hemoglobin 9.30 g/dL (11.27-16.99)
--- NOTE | 2025-03-27 14:09 | P.PN_ITS ---
Subjective 2 Subjective: - Patient was seen this morning - She is alert oriented x 3, following c ommands - She is on nasal cannula, O2 sats in th e high 90s - Blood pressure is 118/60 - She denies any flank pain, no dysuria, hematuria, no bloody or black stools - We discussed her CT angiogram of the c hest findings of extensive bilateral pulmonary emboli - Discussed moderate left lower lobe inf iltrate could be pulmonary infarct versus pneumonia, will continue antibiotics, continue therapeutic Lovenox - Discussed CT scan findings of left hil ar mass, no hemoptysis, does report fevers and chills - She was recently started on oral contr aceptives by her primary care as there was concern for menopause symptoms - Does report bilateral extremity edema, swelling, pain - Examination, discussed her hemoglobin of 9.3, Doppler box was reported, abdominal examination no abdominal tenderness, no flank tenderness, no superficial hematoma bilateral flanks, torres ramey/cullens sign negative - Discussed watching her hemoglobin ever y 4 hours ? Protonix, Carafate, -repeating CT scan of abdomen and pelvis to rule out retroperitoneal bleed - Venous ultrasound bilaterally -Discussed monitoring her closely throug hout the day, she voiced understanding, all questions answered - Discussed. 1.7, continue IV fluids - Repeat lactic acid is 1.9 - Repeat CT scan abdomen pelvis CT/CT abdomen pelvis wo con [id number] IMPRESSION: 1. Persistent peripheral airspace cons olidation within the left lower lobe. Findings may correspond to areas of pulmonary infarct given patient's history of extensive pulmonary emboli. 2. Persistent para-aortic and paracava l stranding along the lower infrarenal abdominal aorta and inferior vena cava. There is persistent stranding along the iliac vasculature. Interval increase in subcutaneous edema and stranding within the musculature along the anterior right and left hip. Vasculitis is not excluded. Given patient's significant pulmonary emboli, central venous thrombosis should also be considered. Follow-up bilateral lower extremity ultrasound is recommended. CT angiogram of the abdominal aorta with delayed venous imaging should also be considered. 3. There are no renal or ureteral calc rigo. No hydronephrosis or hydroureter. 4. Cholelithiasis without evidence of acute cholecystitis. - Discussed with radiologist, concerns f or central venous thrombosis in IVC, - Cannot do CT abdomen pelvis with IV co ntrast given creatinine 1.7, abdominal ultrasound ordered to evaluate IVC -Patient is blood pressure 180/69, pulse is 86, respiratory rate is 20, 97 his temperature she is 98% on room air, -Lower extremity venous ultrasound - US/[place] [id number] IMPRESSION: Extensive deep venous thrombosis involving the entire visualized deep venous system within the right and left lower extremity. Waveforms within the right and left common femoral vein are dampened suggesting more central venous thrombosis, potentially involving the iliac veins and inferior vena cava. - Spoke to V rad's about abdominal ultra sound, bilateral iliac DVTs/thrombosis seen, proximal IVC has flow, hard to assess IVC, concern for possible thrombus, - Continue therapeutic Lovenox will cons ider switching to heparin drip - Continue IV fluids - I have reached out to [facility] for con sideration of IVC filter or potentially catheter directed thrombolysis - Most recent blood pressure 115/82 she wilmer on room air, alert oriented x 3, follow commands Vitals/I&O/Wt Last Vital Signs Temp 97.0 F L 03/27/25 12:00 Pulse 86 03/27/25 12:00 Resp 20 H 03/27/25 12:00 BP 119/69 03/27/25 12:00 Pulse Ox 99 03/27/25 12:00 O2 Del Method Room Air 03/27/25 12:00 03/26/25 03/27/25 03/27/25 22:59 06:59 14:59 Intake Total 232.754 / 5742.676 8869 / 2632.754 250 / 250 Output Total 200 / 600 100 / 700 100 / 100 Balance 32.754 / 793.284 0777 / 1932.754 150 / 150 Weight last 48 hrs Weight 110.1 kg Weight 108.4 kg Weight 104.78 kg Physical Exam 2 Const: COMMON NORMALS: no acute distress and patient oriented x3 Eye: COMMON NORMALS: Equal, round and reactive pupils present PUPIL: Yes Equal, round and reactive pupils present Resp: COMMON NORMALS: normal respiratory effort, No retractions and No use of accessory muscles AUSCULTATION: wheezes Cardio: COMMON NORMALS: regular rate, regular rhythm, S1 normal heart sound present and S2 normal heart sound present RATE: regular rate RHYTHM: r egular rhythm HEART SOUNDS: S1 normal heart sound present and S2 normal heart sound present GI: COMMON NORMALS: Normal to inspection, nondistended, normoactive bowel sounds present and non-tender Extremity: COMMON NORMALS: no calf tenderness and no pedal edema Neuro: COMMON NORMALS: patient oriented x3, CN's II-XII intact bilaterally and moves all extremities Psych: COMMON NORMALS: mental status grossly normal Skin: COMMON NORMALS: turgor normal GENERAL SKIN EXAM: turgor normal Quick SOFA Score: Respiratory Rate: 20 Blood Pressure: 119/69 [place] Coma Scale: 15 qSOFA Score: 0 If qSOFA score 2 or greater, continue: Blood Pressure Mean: 85 Bilirubin (mg/dl): 0.3 Platelets (x10?/ml): 281 Creatinine (mg/dl): 1.7 Evaluation: Current stage of sepsis: sepsis Sepsis stage criteria used: [facility] Sep-1 and Sepsis-3 Crystalloid fluids: less than 30 mL/kg crystalloid fluids ordered Blood cultures ordered: Yes Possible source: pulmonary Focused Exam: Vital signs: Temp Pulse Resp BP Pulse Ox O2 Del Method 03/27/25 12:00 97.0 F L 86 20 H 119/69 99 Room Air 03/27/25 08:24 110 H 16 96 Room Air 03/27/25 07:45 96.3 F L 83 14 82/61 96 Room Air 03/27/25 03:46 97.8 F 79 17 91/63 97 Room Air Respiratory exam: positive wheezes Cardiovascular exam: regular rate, regular rhythm, S1 normal heart sound and S2 normal heart sound Capillary refill: > 3 Seconds Peripheral pulse strength: 2+ Slightly Diminished P eripheral pulse location: Radial and Pedal Skin exam: turgor normal Date exam was performed: 03/27/25 Time exam was performed: 14:39 2 Sepsis Screen No Definite Risk 03/26/25, 08:47 Respiratory Rate, (12 - 18) 20 breaths/min H Today, 12:00 Blood Pressure 119/69 mmHg Today, 12:00 [place] Coma Scale Score 15 Today, 08:00 Quick SOFA Score 0 03/26/25, 08:47 SOFA Score: 2 [place] Coma Scale Score 15 Today, 08:00 Blood Pressure Mean 85 mmHg Today, 12:00 Total Bilirubin, (0.15-1.2) 0.3 mg/dL Today, 02:57 Platelet Count, (157-399) 281 10^3/cmm Today, 02:57 Creatinine, (0.5-0.9) 1.7 mg/dL H Today, 02:57 Data 03/27/25 12:23 03/27/25 02:57 Micro: Microbiology 03/26/25 11:09 Urine Culture - Preliminary Urine,Clean Catch 03/26/25 11:09 Bacterial Antigens - Final Urine,Voided 03/26/25 11:09 Legionella Urinary Antigen - Final Urine,Voided A&P Assessment and plan 1. Pulmonary embolism: 2. Atrial fibrillation with RVR: 3. Community acquired pneumonia: 4. Acute cystitis: 5. Dyslipidemia: 6. Venous thromboembolism: 7. DVT (deep venous thrombosis): 8. Sepsis: 9. Hilar mass: 10. IVC thrombosis: 11. Shock: Plan: Acute bilateral pulmonary embolism FINDINGS: Pulmonary arteries: Extensive pulmonary emboli are present. The largest is lobar and to the right lower lobe with smaller emboli to each lower lobe and the left upper lobe. Aorta: Unremarkable. No aortic aneurysm. No aortic dissection. Lungs: There is a left hilar measuring 2.7 x 4.0 cm in size. This is probably neoplastic. Scattered partially consolidated infiltrate in the left lower lobe, postobstructive atelectasis or more likely pulmonary infarct or pneumonia. Pleural spaces: Unremarkable. No pneumothorax. No pleural effusion. Heart: The RV LV ratio is less than 1, no obvious right heart strain. Lymph nodes: Unremarkable. No enlarged lymph nodes. Gallbladder and biliary ducts: Cholelithiasis. Bones/joints: Unremarkable. No acute fracture. Soft tissues: Unremarkable. Other findings: No acute findings. Cardiac echo CONCLUSIONS Normal left ventricular size, systolic function and wall thickness with ejection fraction of 62%. Normal right ventricular size and systolic function. No significant valvular abnormalities. Small pericardial effusion posteriorly without tamponade. -Etiology left hilar mass, and/or oral contraceptive pills, does have a family history of DVTs and father will need workup Plan -Continue therapeutic Lovenox -Monitor respiratory status closely Possible pulmonary infarct - Left lower lobe - Anticoagulation as above Shock -Multifactorial -Sepsis from pneumonia, UTI -Obstructive shock from acute pulmonary embolism -IVC thrombosis Plan -Lactic acid 1.9 -IV fluids -Keep on bedrest Sepsis secondary to pneumonia UTI -CT of the chest showing infiltrates left lower lobe Plan - Rocephin - Azithromycin - IV fluids - Monitor respiratory status UTI, IV antibiotics Acute DVT bilateral lower extremity US/[place] [id number] IMPRESSION: Extensive deep venous thrombosis involving the entire visualized deep venous system within the right and left lower extremity. Waveforms within the right and left common femoral vein are dampened suggesting more central venous thrombosis, potentially involving the iliac veins and inferior vena cava. Plan - Continue therapeutic Lovenox IVC ultrasound [place]C [id number] IMPRESSION: Deep venous thrombosis is present within the visualized portion of the right and left iliac veins. Proximal aspect of the inferior vena cava appears patent and demonstrates normal phasicity. The mid and distal aspect of the inferior vena cava could not be adequately assessed secondary to overlying bowel gas . Waveforms demonstrate some phasicity but diminished as compared to the proximal IVC. This does raise concern for potential nonocclusive thrombus within the mid and distal inferior vena cava. Venous thrombosis involving the mid and distal inferior vena cava cannot be excluded. Consideration for IVC filter may be indicated. Clinical correlation and follow-up is recommended. Plan -Continue therapeutic Lovenox -Will reach out to [facility], see if patient is candidate for IVC filter placement versus catheter directed thrombectomy Acute anemia - Hemoglobin down to 9.4 - No bloody black stools - CT scan abdomen pelvis without contrast no evidence of retroperitoneal bleed Plan - Protonix, Carafate - Monitor hemoglobin 4 hours - Transfuse if hemoglobin less than 8 - Monitor as patient is on therapeutic Lovenox ACRLA on CKD - Potential component from sepsis - Bilateral PEs, DVT - IV fluids Full code Lovenox for DVT prophylaxis PDMP PDMP Reviewed: Last Reviewed 03/27/25 14:47 by Estuardo Roa MD Attestations 2 Medical Necessity Statement*: Patient requires hospitalization for bilateral pulmonary embolism, pulmonary infarct, pneumonia, sepsis, left hilar mass, bilateral extremity DVT, IVC thrombosis, UTI Diagnoses Pulmonary embolism I26.99 Atrial fibrillation with RVR I48.91 Community acquired pneumonia J18.9 Acute cystitis N30.00 Dyslipidemia E78.5 Venous thromboembolism I82.90 DVT (deep venous thrombosis) I82.409 Sepsis A41.9 Hilar mass R91.8 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
--- NOTE | 2025-03-27 14:55 | P.TS_ITS ---
Transfer Summary Providers Date of Admission: 03/26/25 08:31 Date of Discharge/Transfer: 03/27/25 Attending Provider at Admission: Ayo Restrepo Attending Provider at Transfer: Estuardo Roa MD Primary Care Provider: Hillary Newton NP Transfer Plans: Anticipated date of transfer: 03/27/25 . Diagnoses at Discharge Discharge Diagnosis 1. Pulmonary embolism: 2. Atrial fibrillation with RVR: 3. Community acquired pneumonia: 4. Acute cystitis: 5. Dyslipidemia: 6. Venous thromboembolism: 7. DVT (deep venous thrombosis): 8. Sepsis: 9. Hilar mass: 10. IVC thrombosis: 11. Shock: Reason for Visit Reason for Visit CP Hospital Course Hospital Course This is a 45-year-old female with a past medical history of dyslipidemia, hypertension, recently placed on oral contraceptive for premenopausal symptoms, who presents [facility] due to complaints of chest pain and shortness of breath, and fevers, chills - Patient was admitted to [facility] for bilateral pulmonary embolism, started on therapeutic Lovenox, pneumonia/UTI started on IV antibiotics, suspected new onset atrial fibrillation versus tachycardia, placed on amiodarone which was discontinued with new hilar mass - Patient was seen this morning 03/27/2025 - She is alert oriented x 3, following commands - She is on nasal cannula, O2 sats in the high 90s - Blood pressure is 118/60 - She denies any flank pain, no dysuria, hematuria, no bloody or black stools - We discussed her CT angiogram of the chest findings of extensive bilateral pulmonary emboli - Discussed moderate left lower lobe infiltrate could be pulmonary infarct versus pneumonia, will continue antibiotics, continue therapeutic Lovenox - Discussed CT scan findings of left hilar mass, no hemoptysis, does report fevers and chills - She was recently started on oral contraceptives by her primary care as there was concern for menopause symptoms - Does report bilateral extremity edema, swelling, pain - Examination, discussed her hemoglobin of 9.3, Doppler box was reported, abdominal examination no abdominal tenderness, no flank tenderness, no superficial hematoma bilateral flanks, torres ramey/cullens sign negative - Discussed watching her hemoglobin every 4 hours? Protonix, Carafate, -repeating CT scan of abdomen and pelvis to rule out retroperitoneal bleed - Venous ultrasound bilaterally -Discussed monitoring her closely throughout the day, she voiced understanding, all questions answered - Discussed. 1.7, continue IV fluids - Repeat lactic acid is 1.9 - Repeat CT scan abdomen pelvisACCESSION #: [id number] CT/CT abdomen pelvis wo con [id number] IMPRESSION: 1. Persistent peripheral airspace consolidation within the left lower lobe. Findings may correspond to areas of pulmonary infarct given patient's history of extensive pulmonary emboli. 2. Persistent para-aortic and paracaval stranding along the lower infrarenal abdominal aorta and inferior vena cava. There is persistent stranding along the iliac vasculature. Interval increase in subcutaneous edema and stranding within the musculature along the anterior right and left hip. Vasculitis is not excluded. Given patient's significant pulmonary emboli, central venous thrombosis should also be considered. Follow-up bilateral lower extremity ultrasound is recommended. CT angiogram of the abdominal aorta with delayed venous imaging should also be considered. 3. There are no renal or ureteral calculi. No hydronephrosis or hydroureter. 4. Cholelithiasis without evidence of acute cholecystitis. - Discussed with radiologist, concerns for central venous thrombosis in IVC, - Cannot do CT abdomen pelvis with IV contrast given creatinine 1.7, abdominal ultrasound ordered to evaluate IVC -Patient is blood pressure 180/69, pulse is 86, respiratory rate is 20, 97 his temperature she is 98% on room air, -Lower extremity venous ultrasound - US/CV venous duplex [facility] [id number]: Extensive deep venous thrombosis involving the entire visualized deep venous system within the right and left lower extremity. Waveforms within the right and left common femoral vein are dampened suggesting more central venous thrombosis, potentially involving the iliac veins and inferior vena cava. - Spoke to V rad's about abdominal ultrasound, bilateral iliac DVTs/thrombosis seen, proximal IVC has flow, hard to assess IVC, concern for possible thrombus, - Continue therapeutic Lovenox will consider switching to heparin drip - Continue IV fluids, albumin - Will need to Reach out to [facility] for consideration of IVC filter given IVC thrombosis or potentially catheter directed thrombolysis and or will need for multidisciplinary team given acute anemia/bilateral PE/bilateral lower extremity AT/IVC thrombosis with acute anemia need for multidisciplinary team - Most recent blood pressure 115/82 she wilmer on room air, alert oriented x 3, follow commands - We do not have capability of IVC filter placement here at [facility] over the weekend, nor do we have IR for consideration of catheter directed thrombolysis, given her acute anemia we do not have the multidisciplinary team patient will need if she were to have a acute bleed with her extensive DVTs and PEs and IVC thrombosis - Discussed with patient over the benefits of transfer, shared discharge making, she voiced understanding, all question answered, agreed to proceed - Spoke to [facility] transfer line -, Discussed patient's bilateral DVTs, PEs, IVC thrombosis, CARLA, acute anemia,, sepsis and need for multidisciplinary team, IR, possible candidate for IVC filter placement, or catheter directed thrombolysis, my worry about her acute anemia, her being on anticoagulant therapy, with her extensive thrombosis -Discussed risks and benefits of all options -Discussed medical management here [facility] versus transfer to tertiary level center -After discussing with her the risk benefits of all options, she voiced understanding, all questions answered, shared decision making, agreed to velarde sfer to [facility] -Patient has been septic at [facility], will transfer Acute bilateral pulmonary embolism FINDINGS: Pulmonary arteries: Extensive pulmonary emboli are present. The largest is lobar and to the right lower lobe with smaller emboli to each lower lobe and the left upper lobe. Aorta: Unremarkable. No aortic aneurysm. No aortic dissection. Lungs: There is a left hilar measuring 2.7 x 4.0 cm in size. This is probably neoplastic. Scattered partially consolidated infiltrate in the left lower lobe, postobstructive atelectasis or more likely pulmonary infarct or pneumonia. Pleural spaces: Unremarkable. No pneumothorax. No pleural effusion. Heart: The RV LV ratio is less than 1, no obvious right heart strain. Lymph nodes: Unremarkable. No enlarged lymph nodes. Gallbladder and biliary ducts: Cholelithiasis. Bones/joints: Unremarkable. No acute fracture. Soft tissues: Unremarkable. Other findings: No acute findings. Cardiac echo CONCLUSIONS Normal left ventricular size, systolic function and wall thickness with ejection fraction of 62%. Normal right ventricular size and systolic function. No significant valvular abnormalities. Small pericardial effusion posteriorly without tamponade. -Etiology left hilar mass, and/or oral contraceptive pills, does have a family history of DVTs and father will need workup Plan -Continue therapeutic Lovenox -Monitor respiratory status closely Possible pulmonary infarct - Left lower lobe - Anticoagulation as above Shock -Multifactorial -Sepsis from pneumonia, UTI -Obstructive shock from acute pulmonary embolism -IVC thrombosis Plan -Lactic acid 1.9 -IV fluids -Keep on bedrest Sepsis secondary to pneumonia UTI -CT of the chest showing infiltrates left lower lobe Plan - Rocephin - Azithromycin - IV fluids - Monitor respiratory status UTI, IV antibiotics Acute DVT bilateral lower [place] US/[place] [id number] IMPRESSION: Extensive deep venous thrombosis involving the entire visualized deep venous system within the right and left lower extremity. Waveforms within the right and left common femoral vein are dampened suggesting more central venous thrombosis, potentially involving the iliac veins and inferior vena cava. Plan - Continue therapeutic Lovenox Atrial fibrillation with rapid ventricle response versus sinus tachycardia - Was on amiodarone drip that was discontinued yesterday -Currently remains sinus tachycardia - Telemetry monitoring IVC ultrasound US/CV duplex IVC [id number] IMPRESSION: Deep venous thrombosis is present within the visualized portion of the right and left iliac veins. Proximal aspect of the inferior vena cava appears patent and demonstrates normal phasicity. The mid and distal aspect of the inferior vena cava could not be adequately assessed secondary to overlying bowel gas . Waveforms demonstrate some phasicity but diminished as compared to the proximal IVC. This does raise concern for potential nonocclusive thrombus within the mid and distal inferior vena cava. Venous thrombosis involving the mid and distal inferior vena cava cannot be excluded. Consideration for IVC filter may be indicated. Clinical correlation and follow-up is recommended. Plan -Continue therapeutic Lovenox -Will reach out to [facility] IR, see if patient is candidate for IVC filter placement versus catheter directed thrombectomy Acute anemia - Hemoglobin down to 9.4 - No bloody black stools - CT scan abdomen pelvis without contrast no evidence of retroperitoneal bleed Plan - Protonix, Carafate - Monitor hemoglobin 4 hours - Transfuse if hemoglobin less than 8 - Monitor as patient is on therapeutic Lovenox CARLA on CKD - Potential component from sepsis - Bilateral PEs, DVT - IV fluids Full code Lovenox for DVT prophylaxis Physical Exam Const: COMMON NORMALS: no acute distress and patient oriented x3 Resp: COMMON NORMALS: normal respiratory effort, No retractions, No use of accessory muscles and clear to auscultation bilaterally AUSCULTATION: clear to auscultation bilaterally Cardio: COMMON NORMALS: regular rate, regular rhythm, S1 normal heart sound present and S2 normal heart sound present RATE: regular rate RHYTHM: regular rhythm HEART SOUNDS: S1 normal heart sound present and S2 normal heart sound present GI: COMMON NORMALS: Normal to inspection, nondistended, normoactive bowel sounds present and non-tender Extremity: NARRATIVE EXTREMITY EXAM: 1+ edema Neuro: COMMON NORMALS: patient oriented x3 Psych: COMMON NORMALS: mental status grossly normal Skin: COMMON NORMALS: turgor normal GENERAL SKIN EXAM: turgor normal Quick SOFA Score: Respiratory Rate: 20 Blood Pressure: 119/69 [place] Coma Scale: 15 qSOFA Score: 0 If qSOFA score 2 or greater, continue: Blood Pressure Mean: 85 Bilirubin (mg/dl): 0.3 Platelets (x10?/ml): 281 Creatinine (mg/dl): 1.7 Evaluation: Current stage of sepsis: sepsis Sepsis stage criteria used: [facility] Sep-1 and Sepsis-3 Crystalloid fluids: less than 30 mL/kg crystalloid fluids ordered Blood cultures ordered: Yes Possible source: pulmonary and genitourinary Focused Exam: Vital signs: Temp Pulse Resp BP Pulse Ox O2 Del Method 03/27/25 12:00 97.0 F L 86 20 H 119/69 99 Room Air 03/27/25 08:24 110 H 16 96 Room Air 03/27/25 07:45 96.3 F L 83 14 82/61 96 Room Air 03/27/25 03:46 97.8 F 79 17 91/63 97 Room Air Respiratory exam: CTA bilaterally Cardiovascular exam: regular rate, regular rhythm, S1 normal heart sound and S2 normal heart sound Capillary refill: > 3 Seconds Peripheral pulse strength: 2+ Slightly Diminished Peripheral pulse location: Radial and Pedal Skin exam: turgor normal Date exam was performed: 03/27/25 Time exam was performed: 15:00 Sepsis Screen No Definite Risk 03/26/25, 08:47 Respiratory Rate, (12 - 18) 18 breaths/min Today, 15:04 Blood Pressure 99/57 mmHg Today, 15:04 [place] Coma Scale Score 15 Today, 08:00 Quick SOFA Score 0 Today, 15:07 SOFA Score: [place] Coma Scale Score 15 Today, 08:00 Blood Pressure Mean 71 mmHg Today, 15:04 Total Bilirubin, (0.15-1.2) 0.3 mg/dL Today, 02:57 Platelet Count, (157-399) 281 10^3/cmm Today, 02:57 Creatinine, (0.5-0.9) 1.7 mg/dL H Today, 02:57 TS Data Studies Completed and Pending Pending at discharge Category Date Time Status CK-MB (CK-2) Routine Lab 03/26/25 06:05 Received BMP [Basic Metabolic Panel] Stat Lab 03/27/25 14:00 Ordered Complete Blood Count w/Auto AM LABS Lab 03/28/25 04:00 Ordered Complete Blood Count w/Auto AM LABS Lab 03/29/25 04:00 Ordered Comprehensive Metabolic Panel AM LABS Lab 03/28/25 04:00 Ordered Comprehensive Metabolic Panel AM LABS Lab 03/29/25 04:00 Ordered Hemoglobin and Hematocrit Q4H Lab 03/27/25 16:34 Ordered Hemoglobin and Hematocrit Q4H Lab 03/27/25 20:34 Ordered Hemoglobin and Hematocrit Q4H Lab 03/28/25 00:34 Ordered Hemoglobin and Hematocrit Q4H Lab 03/28/25 04:34 Ordered Hemoglobin and Hematocrit Q4H Lab 03/28/25 08:34 Ordered Hemoglobin and Hematocrit Q4H Lab 03/28/25 12:34 Ordered Magnesium AM LABS Lab 03/28/25 04:00 Ordered Magnesium AM LABS Lab 03/29/25 04:00 Ordered Occult Blood Stool [Immunochemical Fecal OCB] Routine Lab 03/27/25 14:40 Uncollected Sputum Culture Routine Lab 03/26/25 12:10 Uncollected Urine Culture Routine Lab 03/26/25 11:09 Results Completed Studies During Hospitalization Category Date Time Status CT abdomen pelvis wo con [id number] Stat Cat Scan 03/27/25 11:[address] abdomen renal stone [CT kidney stone 04354] Stat Cat Scan 03/26/25 07:34 Co mpleted CTA chest [CT angio chest PE protcl [id number]] Stat Cat Scan 03/26/25 06:42 Completed XR chest 1V portable [id number] Stat Exams 03/26/25 05:39 Completed CV echo complete* [id number] Routine Ultrasound 03/26/25 11:52 [place] [id number] Routine Ultrasound 03/27/25 12:17 Completed US duplex IVC [CV duplex IVC [id number]] Stat Ultrasound 03/27/25 12:17 Completed Laboratory Last Values WBC 9.52 10^3/uL (3.29-11.43) 03/27/25 02:57 RBC 3.21 10^6/uL (3.85-5.65) L 03/27/25 02:57 Hgb 9.30 g/dL (11.27-16.99) L 03/27/25 12:23 Hct 28.2 % (36-47) L 03/27/25 12:23 MCV 90.7 fl (85-98) 03/27/25 02:57 MCH 29.3 pg (27-33) 03/27/25 02:57 MCHC 32.3 g/dL (30-55) 03/27/25 02:57 RDW 12.2 % (12.1-15.1) 03/27/25 02:57 Plt Count 281 10^3/cmm (157-399) 03/27/25 02:57 MPV 9.9 fL (7.4-10.4) 03/27/25 02:57 Neut % (Auto) 68.2 % 03/27/25 02:57 Lymph % (Auto) 21.7 % 03/27/25 02:57 [place] % (Auto) 6.9 % 03/27/25 02:57 Eos % (Auto) 1.6 % 03/27/25 02:57 Baso % (Auto) 0.4 % 03/27/25 02:57 Neut # (Auto) 6.49 10^3/uL (1.8-7.7) 03/27/25 02:57 Lymph # (Auto) 2.1 10^3/uL (0.8-4.8) 03/27/25 02:57 [place] # (Auto) 0.7 10^3/uL (0.2-0.9) 03/27/25 02:57 Eos # (Auto) 0.2 10^3/uL (0.0-0.8) 03/27/25 02:57 Baso # (Auto) 0.0 10^3/uL (0.0-0.1) 03/27/25 02:57 Nucleated RBC % (auto) 0 % 03/27/25 02:57 Nucleated RBCs # 0.0 /100WBC 03/27/25 02:57 PT 14.40 SECONDS (12.1-14.9) 03/27/25 02:57 INR 1.04 (0.8-1.2) 03/27/25 02:57 D-Dimer 14.06 ug/mLFEU (0-0.59) H 03/27/25 02:57 Sodium 133 mmol/L (136-145) L 03/27/25 02:57 Potassium 4.0 mmol/L (3.5-5.1) 03/27/25 02:57 Chloride 97 mmol/L (98-107) L 03/27/25 02:57 Carbon Dioxide 22 mmol/L (22-29) 03/27/25 02:57 Anion Gap 18.0 (5-19) 03/27/25 02:57 BUN 24 mg/dL (6-20) H 03/27/25 02:57 Creatinine 1.7 mg/dL (0.5-0.9) H 03/27/25 02:57 GFR Calculation 32.5 mL/min (90-130) L 03/27/25 02:57 Glucose 123 mg/dL (65-115) H 03/27/25 02:57 Estimat Average Glucose 114 03/26/25 06:05 Hemoglobin A1c 5.6 % (4.0-6.0) 03/26/25 06:05 Calculated Osmolality 281 mOsm/kg (285-295) L 03/27/25 02:57 Lactic Acid 1.9 mmol/L (0.5-2.2) 03/27/25 09:14 Calcium 8.6 mg/dL (8.5-10.5) 03/27/25 02:57 Phosphorus 3.9 mg/dL (2.5-4.5) 03/26/25 07:53 Magnesium 2.1 mg/dL (1.7-2.3) 03/27/25 02:57 Iron 23 ug/dL (37-145) L 03/27/25 09:14 TIBC 207 mcg/dl 03/27/25 09:14 % Saturation 11.1 % (20-50) L 03/27/25 09:14 Unsat Iron Binding 184 ug/dL (112-347) 03/27/25 09:14 Ferritin 710 ng/mL (15-150) H 03/27/25 09:14 Total Bilirubin 0.3 mg/dL (0.15-1.2) 03/27/25 02:57 AST 12 U/L (0-32) 03/27/25 02:57 ALT 15 U/L (0-33) 03/27/25 02:57 Alkaline Phosphatase 130 U/L (35-105) H 03/27/25 02:57 CK-MB (CK-2) Cancelled 03/26/25 06:05 CK-MB (CK-2) Rel Index Cancelled 03/26/25 06:05 Troponin T Baseline 8 ng/L (0-10) 03/26/25 06:05 Troponin T 120 Minute 13.12 ng/L (0-10) H 03/26/25 07:53 Delta Troponin T 5.12 ABS# (0-10) 03/26/25 07:53 Troponin T Hi Sens 6Hr 9.63 ng/L (0-10) 03/26/25 11:44 Troponin T Hi Sens 6Hr Delta 1.63 ng/L (0-12) 03/26/25 11:44 NT-Pro-B Natriuret Pep 121 pg/mL (0-125) 03/26/25 07:53 Total Protein 7.2 g/dL (6.6-8.7) 03/27/25 02:57 Albumin 3.6 g/dL (3.5-5.2) 03/27/25 02:57 Globulin 3.6 g/dL (1.3-4.6) 03/27/25 02:57 Triglycerides 306 mg/dL (0-150) H 03/26/25 07:53 Cholesterol 201 mg/dL (0-200) H 03/26/25 07:53 LDL Cholesterol, Calc 105 mg/dL (50-129) 03/26/25 07:53 HDL Cholesterol 35 mg/dL (60-100) L 03/26/25 07:53 LDL/HDL Ratio 3.00 RATIO (0.00-3.22) 03/26/25 07:53 Cholesterol/HDL Ratio 5.74 mg/dL (0.0-4.40) H 03/26/25 07:53 TSH 4.00 uIU/mL (0.27-4.20) 03/26/25 07:53 Urine Color Dark yellow (Yellow) A 03/26/25 13:15 Urine Appearance Cloudy (CLEAR) A 03/26/25 13:15 Urine pH 6.0 (5-7) 03/26/25 13:15 Ur Specific [place] 1.065 (1.005-1.030) H 03/26/25 13:15 Urine Protein 2+ (Negative) A 03/26/25 13:15 Urine Glucose (UA) Negative (Normal) 03/26/25 13:15 Urine Ketones Negative (Negative) 03/26/25 13:15 Urine Blood 1+ (Negative) A 03/26/25 13:15 Urine Nitrate Negative (Negative) 03/26/25 13:15 Urine Bilirubin Negative (Negative) 03/26/25 13:15 Urine Urobilinogen 1.0 mg/dL (Negative) 03/26/25 13:15 Ur Leukocyte Esterase Negative (Negative) 03/26/25 13:15 Urine RBC 11-20 /hpf (0-2) H 03/26/25 13:15 Urine WBC 0-5 /hpf (0-5) 03/26/25 13:15 Ur Squamous Epith Cells 10-15 /hpf (0-5) H 03/26/25 13:15 Amorphous Sediment Not Reportable 03/26/25 13:15 Urine Bacteria Trace /hpf (NONE) 03/26/25 13:15 Hyaline Casts 4.95 /lpf 03/26/25 13:15 Coarse Granular Casts 0-4 /lpf H 03/26/25 07:05 Adenovirus (PCR) Not detected (NOT DETECT) 03/26/25 11:06 C. pneumoniae DNA (PCR) Not detected (NOT DETECT) 03/26/25 11:06 Coronavirus 229E (PCR) Not detected (NOT DETECT) 03/26/25 11:06 Human Metapneumovir PCR Not detected (NOT DETECT) 03/26/25 11:06 Influenza A (H1) PCR Not detected (NOT DETECT) 03/26/25 11:06 Influenza A (PCR) Negative (Negative) 03/26/25 06:13 Influ A (H1/09) PCR Not detected (NOT DETECT) 03/26/25 11:06 Influenza A (H3) PCR Not detected (NOT DETECT) 03/26/25 11:06 Influenza Type A (PCR) Not detected (NOT DETECT) 03/26/25 11:06 Influenza Type B (PCR) Not detected (NOT DETECT) 03/26/25 11:06 M. pneumoniae (PCR) Not detected (NOT DETECT) 03/26/25 11:06 Parainfluenza 1 (PCR) Not detected (NOT DETECT) 03/26/25 11:06 Parainfluenza 2 (PCR) Not detected (NOT DETECT) 03/26/25 11:06 Parainfluenza 3 (PCR) Not detected (NOT DETECT) 03/26/25 11:06 Parainfluenza 4 (PCR) Not detected (NOT DETECT) 03/26/25 11:06 RSV (PCR) Negative (Negative) 03/26/25 06:13 RSV Type A (PCR) Not detected (NOT DETECT) 03/26/25 11:06 RSV Type B (PCR) Not detected (NOT DETECT) 03/26/25 11:06 Entero/Rhino (PCR) Not detected (NOT DETECT) 03/26/25 11:06 SARS-CoV-2 (PCR) Not detected (NOT DETECT) 03/26/25 11:06 Radiology Impressions Chest X-Ray 03/26/25 05:39 IMPRESSION: No acute findings. Chest CTA 03/26/25 06:42 IMPRESSION: 1. Extensive pulmonary emboli. 2. Left hilar mass. 3. Moderate left lower lobe infiltrate likely pneumonia or pulmonary infarct. ADDENDUM: 03/26/25 0748 THIS REPORT CONTAINS FINDINGS THAT MAY BE CRITICAL TO PATIENT CARE. The findings were verbally communicated via telephone conference with PRISCILLA WEBSTER at 7:46 AM BOOKKEEPING MACHINE MECHANIC on 03/26/2025. The findings were acknowledged and understood. Abdomen/Pelvis CT 03/27/25 11:21 IMPRESSION: 1. Persistent peripheral airspace consolidation within the left lower lobe. Findings may correspond to areas of pulmonary infarct given patient's history of extensive pulmonary emboli. 2. Persistent para-aortic and paracaval stranding along the lower infrarenal abdominal aorta and inferior vena cava. There is persistent stranding along the iliac vasculature. Interval increase in subcutaneous edema and stranding within the musculature along the anterior right and left hip. Vasculitis is not excluded. Given patient's significant pulmonary emboli, central venous thrombosis should also be considered. Follow-up bilateral lower extremity ultrasound is recommended. CT angiogram of the abdominal aorta with delayed venous imaging should also be considered. 3. There are no renal or ureteral calculi. No hydronephrosis or hydroureter. 4. Cholelithiasis without evidence of acute cholecystitis. ADDENDUM: 03/27/25 1219 COMMENT: THIS REPORT CONTAINS FINDINGS THAT MAY BE CRITICAL TO PATIENT CARE. The exam findings were verbally communicated by me to ESTUARDO ROA via telephone conference at 12:17 PM BOOKKEEPING MACHINE MECHANIC on 03/27/2025. The findings were acknowledged and understood. Inferior Vena Cava Doppler US 03/27/25 12:17 IMPRESSION: Deep venous thrombosis is present within the visualized portion of the right and left iliac veins. Proximal aspect of the inferior vena cava appears patent and demonstrates normal phasicity. The mid and distal aspect of the inferior vena cava could not be adequately assessed secondary to overlying bowel gas . Waveforms demonstrate some phasicity but diminished as compared to the proximal IVC. This does raise concern for potential nonocclusive thrombus within the mid and distal inferior vena cava. Venous thrombosis involving the mid and distal inferior vena cava cannot be excluded. Consideration for IVC filter may be indicated. Clinical correlation and follow-up is recommended. COMMENTS: THIS REPORT CONTAINS FINDINGS THAT MAY BE CRITICAL TO PATIENT CARE. The exam findings were verbally communicated by me to ESTUARDO ROA via telephone conference at 2:28 PM BOOKKEEPING MACHINE MECHANIC on 03/27/2025. The findings were acknowledged and understood. This does raise Venous Duplex 03/27/25 12:17 IMPRESSION: Extensive deep venous thrombosis involving the entire visualized deep venous system within the right and left lower extremity. Waveforms within the right and left common femoral vein are dampened suggesting more central venous thrombosis, potentially involving the iliac veins and inferior vena cava. ADDENDUM: 03/27/25 1431 COMMENT: THIS REPORT CONTAINS FINDINGS THAT MAY BE CRITICAL TO PATIENT CARE. The exam findings were verbally communicated by me to ESTUARDO ROA via telephone conference at 2:30 PM BOOKKEEPING MACHINE MECHANIC on 03/27/2025. The findings were acknowledged and understood. Recent Clincial Data Last Vital Signs Temp 97.0 F L 03/27/25 12:00 Pulse 86 03/27/25 12:00 Resp 20 H 03/27/25 12:00 BP 119/69 03/27/25 12:00 Pulse Ox 99 03/27/25 12:00 O2 Del Method Room Air 03/27/25 12:00 Vital Signs Temp Pulse Resp BP Pulse Ox O2 Del Method 03/27/25 12:00 97.0 F L 86 20 H 119/69 99 Room Air 03/27/25 08:24 110 H 16 96 Room Air 03/27/25 07:45 96.3 F L 83 14 82/61 96 Room Air 03/27/25 03:46 97.8 F 79 17 91/63 97 Room Air Intake & Output/Weight 03/25/25 03/26/25 03/27/25 03/28/25 06:59 06:59 06:59 06:59 Intake Total 2632.754 / 2632.754 490 / 490 Output Total 700 / 700 100 / 100 Balance 1932.754 / 1932.754 390 / 390 Weight 104.78 kg 110.1 kg Vitals Last Vital Signs Temp 97.0 F L 03/27/25 12:00 Pulse 86 03/27/25 12:00 Resp 20 H 03/27/25 12:00 BP 119/69 03/27/25 12:00 Pulse Ox 99 03/27/25 12:00 O2 Del Method Room Air 03/27/25 12:00 TS Medications Medications Acetaminophen (Acetaminophen 325 Mg Tablet) 650 mg PO Q6H PRN PRN Reason: Mild/Mod Pain Or Temp >/= 101 Hydrocodone Bitart/Acetaminophen (Hydrocodone-Acetaminophen 5-325 Mg Tablet) 1 tab PO Q4H PRN PRN Reason: MODERATE TO SEVERE PAIN Last Admin: 03/27/25 11:14 Dose: 1 tab Al Hydrox/Mg Hydrox/Simethicone (Pnxk-Vgw-Fcrfwympu-Collin 30 Ml Udc) 15 ml PO Q6H PRN PRN Reason: INDIGESTION Albuterol Sulfate (Albuterol 2.5 Mg/3 Ml Neb) 2.5 mg INHALATION Q6H PRN PRN Reason: SHORTNESS OF BREATH Atorvastatin Calcium (Atorvastatin 40 Mg Tablet) 40 mg PO DAILY RYANN Last Admin: 03/27/25 04:48 Dose: 40 mg Bisacodyl (Bisacodyl 5 Mg Tablet) 10 mg PO DAILY PRN; Protocol PRN Reason: Constipation (see protocol) Ceftriaxone Sodium (Ceftriaxone 1,000 Mg Sdv) 1,000 mg IVP Q24H RYANN; Protocol Last Admin: 03/27/25 09:37 Dose: 1,000 mg Docusate Sodium (Docusate Sodium 100 Mg Capsule) 100 mg PO BID RYANN Last Admin: 03/27/25 04:48 Dose: 100 mg Enoxaparin Sodium (Enoxaparin 120 Mg/0.8 Ml Syringe) 110 mg SUBCUT Q12H [facility] Last Admin: 03/27/25 07:55 Dose: 110 mg Fluticasone Propionate (Fluticasone Nasal [place] 16gm Btl) 1 spray INTRANASAL BID [facility] Last Admin: 03/27/25 04:49 Dose: 1 spray Hydroxyzine Pamoate (Hydroxyzine 25 Mg Capsule) 50 mg PO QID PRN PRN Reason: ANXIETY Azithromycin 500 mg/ Sodium (Chloride) 250 mls @ 250 mls/hr IV Q24H [facility]; Protocol Last Infusion: 03/27/25 10:47 Dose: Infused Sodium Chloride (Sodium Chloride 0.9%) 1,000 mls @ 125 mls/hr IV .Q8H [facility] Last Admin: 03/27/25 12:44 Dose: 125 mls/hr Albumin Human (Albumin) 25 g in 100 mls @ 60 mls/hr IV Q8H [facility] Lactobacillus Acidophilus (Lactobacillus 1 Tablet) 1 tab PO BID [facility] Last Admin: 03/27/25 04:48 Dose: 1 tab Montelukast Sodium (Montelukast Sodium 10 Mg Tablet) 10 mg PO DAILY [facility] Last Admin: 03/27/25 04:49 Dose: 10 mg Morphine Sulfate (Morphine 4 Mg/Ml Sdv 1 Ml) 4 mg IVP Q4H PRN PRN Reason: SEVERE PAIN Last Admin: 03/26/25 13:49 Dose: 4 mg Ondansetron HCl (Ondansetron 2 Mg/Ml Sdv 2 Ml) 4 mg IVP Q8H PRN PRN Reason: vomiting, or N/V if npo Pantoprazole Sodium (Pantoprazole 40 Mg Sdv) 40 mg IVP Q12H [facility] Last Admin: 03/27/25 09:38 Dose: 40 mg Sertraline HCl (Sertraline 100 Mg Tablet) 100 mg PO DAILY [facility] Last Admin: 03/27/25 04:49 Dose: 100 mg Sucralfate (Sucralfate 1 Gm/10 Ml Oral Liq Udc) 1 gm PO Q6H [facility] Last Admin: 03/27/25 14:22 Dose: 1 gm Tizanidine HCl (Tizanidine 4 Mg Tablet) 2 mg PO BID PRN PRN Reason: muscle spasticity Last Admin: 03/26/25 16:17 Dose: 2 mg Tramadol HCl (Tramadol 50 Mg Tablet) 50 mg PO Q6H PRN PRN Reason: MODERATE PAIN Trazodone HCl (Trazodone 100 Mg Tablet) 100 mg PO BEDTIME PRN PRN Reason: INSOMNIA Last Admin: 03/26/25 20:53 Dose: 100 mg Discontinued Medications Aspirin (Aspirin 81 Mg Chew Tablet) 324 mg PO ONCE ONE Stop: 03/26/25 05:40 Last Admin: 03/26/25 06:04 Dose: 324 mg Ceftriaxone Sodium (Ceftriaxone 1,000 Mg Sdv) 1,000 mg IVP ONCE ONE; Protocol Stop: 03/26/25 07:35 Last Admin: 03/26/25 08:15 Dose: 1,000 mg Diclofenac Sodium (Diclofenac [address] Tablet) 75 mg PO BID RYANN Last Admin: 03/27/25 04:48 Dose: 75 mg Diphenhydramine HCl (Diphenhydramine 50 Mg/Ml Sdv 1ml) 50 mg IVP ONCE ONE Stop: 03/26/25 05:53 Last Admin: 03/26/25 06:04 Dose: 50 mg Enoxaparin Sodium (Enoxaparin 100 Mg/Ml Syringe) 100 mg SUBCUT ONCE ONE Stop: 03/26/25 08:17 Last Admin: 03/26/25 08:46 Dose: 100 mg Sodium Chloride (Sodium Chloride 0.9%) 1,000 mls @ 999 mls/hr IV .Q1H1M ONE Stop: 03/26/25 06:52 Last Infusion: 03/26/25 08:40 Dose: Infused Sodium Chloride (Sodium Chloride 0.9%) 1,000 mls @ 999 mls/hr IV .Q1H1M ONE Stop: 03/26/25 07:12 Last Admin: 03/26/25 06:40 Dose: Not Given AMIODARONE HCL/D5W (Amiodarone 900 Mg/500 Ml-D5w) 900 mg in 500 mls @ 0 mls/hr IV .Q0M [facility]; Protocol Last Titration: 03/26/25 15:45 Dose: Infused Sodium Chloride (Sodium Chloride 0.9%) 1,000 mls @ 75 mls/hr IV .[id number] [facility] Stop: 03/26/25 23:34 Last Infusion: 03/27/25 02:49 Dose: Infused Lactated Ringer's (Lactated Ringers) 1,000 mls @ 999 mls/hr IV .Q1H1M ONE Stop: 03/27/25 09:34 Last Admin: 03/27/25 09:37 Dose: 999 mls/hr Iohexol (Iohexol 350 Mg/Ml 500 Ml Btl (Per Ml)) 0 ml IV ONCE ONE Stop: 03/26/25 07:23 Last Admin: 03/26/25 07:23 Dose: 58 ml Ketorolac Tromethamine (Ketorolac 30 Mg/Ml Inj) 15 mg IVP ONCE ONE Stop: 03/26/25 05:53 Last Admin: 03/26/25 06:03 Dose: 15 mg Metoclopramide HCl (Metoclopramide 5 Mg/Ml Sdv 2 Ml) 10 mg IVP ONCE ONE Stop: 03/26/25 05:53 Last Admin: 03/26/25 06:04 Dose: 10 mg Morphine Sulfate (Morphine 4 Mg/Ml Sdv 1 Ml) 4 mg IVP ONCE ONE Stop: 03/26/25 07:29 Last Admin: 03/26/25 08:15 Dose: 4 mg Non-Formulary Medication (Hydroxyzine Hcl) 50 mg PO QID [facility] Last Admin: 03/26/25 13:25 Dose: Not Given Pantoprazole Sodium (Pantoprazole Dr 40 Mg Tablet) 40 mg PO DAILY [facility] Last Admin: 03/27/25 04:49 Dose: 40 mg Propranolol HCl (Propranolol 20 Mg Tablet) 20 mg PO BID PRN PRN Reason: ANXIETY Last Admin: 03/26/25 16:16 Dose: 20 mg Allergies Penicillins Allergy (Severe, Verified 02/11/25 09:42) hives as child Home Medications Bilateral wrist brace #1 ea 03/10/24 [Rx Confirmed 03/26/25] tizanidine 2 mg tablet 2 mg PO BID PRN muscle spasticity #20 tabs 10/05/24 [Rx Confirmed 03/26/25] promethazine 25 mg tablet 25 mg PO Q6H PRN nausea and vomiting #30 tabs 11/24/24 [Rx Confirmed 03/26/25] propranolol 20 mg tablet 20 mg PO BID PRN anxiety #60 tabs 12/11/24 [Rx Confirmed 03/26/25] sertraline 100 mg tablet 100 mg PO QDAY #30 tabs 12/11/24 [Rx Confirmed 03/26/25] sucralfate 100 mg/mL oral suspension 10 ml PO BID 30 days #600 mL 12/31/24 [Rx Confirmed 03/26/25] diclofenac sodium 75 mg tablet,delayed release 75 mg PO BID #60 tabs 01/11/25 [Rx Confirmed 03/26/25] montelukast 10 mg tablet 10 mg PO DAILY 02/01/25 [History Confirmed 03/26/25] rosuvastatin 10 mg tablet 10 mg PO DAILY 02/01/25 [History Confirmed 03/26/25] omeprazole 20 mg capsule,delayed release See Rx Instructions .Route .COMPLEX #30 caps 02/05/25 [Rx Confirmed 03/26/25] trazodone 100 mg tablet 100 mg PO .HS PRN insomnia #30 tabs 02/05/25 [Rx Confirmed 03/26/25] fluticasone propionate 50 mcg/actuation nasal spray,suspension (Allergy Relief (fluticasone)) 1 spray intranasal BID #16 grams 02/25/25 [Rx Confirmed 03/26/25] albuterol sulfate 90 mcg/actuation aerosol inhaler See Rx Instructions .Route .COMPLEX #8.5 grams 03/24/25 [Rx Confirmed 03/26/25] hydroxyzine HCl 50 mg tablet 50 mg PO QID 03/26/25 [History Confirmed 03/26/25] norethindrone 1.5 mg-ethinyl estradiol 30 mcg(21)/iron 75 mg(7) tablet ([place] Fe 1.5/30 ()) 1 tab PO DAILY 03/26/25 [History Confirmed 03/26/25] Discharge Plan Discharge Patient Disposition: Home Condition: Stable Prescriptions: No Action (DME) Bilateral wrist brace See Rx Instructions .Route .MEDSUPPLY Qty: 1 0RF Rx Instructions: As directed sucralfate 100 mg/mL suspension 10 ml PO BID 30 Days Qty: 600 11RF sertraline 100 mg tablet 100 mg PO QDAY Qty: 30 11RF propranolol 20 mg tablet 20 mg PO BID PRN (Reason: anxiety) Qty: 60 1RF promethazine 25 mg tablet 25 mg PO Q6H PRN (Reason: nausea and vomiting) Qty: 30 0RF trazodone 100 mg tablet 100 mg PO .HS PRN (Reason: insomnia) Qty: 30 11RF tizanidine 2 mg tablet 2 mg PO BID PRN (Reason: muscle spasticity) Qty: 20 0RF Rx Instructions: may take 2 to 3 times daily. diclofenac sodium 75 mg tablet,delayed release (DR/EC) 75 mg PO BID Qty: 60 2RF omeprazole 20 mg capsule,delayed release(DR/EC) See Rx Instructions .ROUTE .COMPLEX Qty: 30 3RF Dose Instruction: take 1 capsule BY MOUTH EVERY MORNING. TAKE WHILE ON DICLOFENAC TO PROTECT STOMACH Rx Instructions: take 1 capsule BY MOUTH EVERY MORNING. TAKE WHILE ON DICLOFENAC TO PROTECT STOMACH fluticasone propionate [Allergy Relief (fluticasone)] 50 mcg/actuation spray,suspension 1 spray intranasal BID Qty: 16 0RF Rx Instructions: administer into each nostril albuterol sulfate 90 mcg/actuation HFA aerosol inhaler See Rx Instructions .ROUTE .COMPLEX Qty: 8.5 1RF Dose Instruction: INHALE TWO PUFFS EVERY 6 HOURS NEEDED FOR SHORTNESS OF BREATH Rx Instructions: INHALE TWO PUFFS EVERY 6 HOURS NEEDED FOR SHORTNESS OF BREATH montelukast 10 mg tablet 10 mg PO DAILY Rx Instructions: TAKE 1 TABLET BY MOUTH EVERY DAY rosuvastatin 10 mg tablet 10 mg PO DAILY Rx Instructions: TAKE 1 TABLET BY MOUTH EVERY DAY norethindrone-e.estradiol-iron [[place] Fe 1.5/30 (28)] 1.5 mg-30 mcg (21)/75 mg (7) tablet 1 tab PO DAILY hydroxyzine HCl 50 mg tablet 50 mg PO QID Referrals: Hillary Newton NP [Primary Care Provider, Family Practice] Patient Instructions: Opioid Safety, Patient Portal & Madhu Instructions Transfer Attestations Time Spent in Transfer Care: greater than 30 min Quality Metrics Clinical Quality Measures [ Venous Thromboembolism { Contraindication to Overlap Therapy: None; Overlap threrpy ordered; VTE Discharge Education: Education about anticoagulant ther apy/Care Notes given; Contraindication to Pharm VTE Prophylaxis: None; Pharmacological prophylaxis given;}] Coding Level of Care Code Acute Code for [facility] Fwd Diagnoses Pulmonary embolism I26.99 Acute cor pulmonale presence: without acute cor pulmonale Chronicity: acute Pulmonary embolism type: unspecified Atrial fibrillation with RVR I48.91 Community acquired pneumonia J18.9 Acute cystitis N30.00 Dyslipidemia E78.5 Venous thromboembolism I82.90 DVT (deep venous thrombosis) I82.409 Sepsis A41.9 Hilar mass R91.8 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
[2025-03-27 16:15] LABS: Hematocrit 29.3 % (36-47); Hemoglobin 9.60 g/dL (11.27-16.99)
[2025-03-27 16:36] LABS: Anion Gap 19.7 (5-19); Blood Urea Nitrogen 29 mg/dL (6-20); Calcium 8.6 mg/dL (8.5-10.5); Carbon Dioxide 19 mmol/L (22-29); Chloride 98 mmol/L (98-107); Glucose 111 mg/dL (65-115); Osmolality Calculated 283 mOsm/kg (285-295); Potassium 3.7 mmol/L (3.5-5.1); Sodium 133 mmol/L (136-145)
[2025-03-27 20:57] LABS: Hematocrit 29.2 % (36-47); Hemoglobin 9.50 g/dL (11.27-16.99)
[2025-03-27] MEDS: albumin 25 G/100 ML BAG 60 G IV (21:47)
[2025-03-28] VITALS (13 sets, daily range): BP systolic 118–161; BP diastolic 71–101; PULSE 91–124; RESP 16–26; TEMP 36.6–37.7; O2SAT 94–100
[2025-03-28 00:40] LABS: Hematocrit 28.4 % (36-47); Hemoglobin 9.60 g/dL (11.27-16.99)
[2025-03-28] MEDS: sucralfate 1 gm/10 mL Oral Liq UDC PO ×4 (03:45→20:47)
[2025-03-28 04:22] LABS: Hematocrit 26.5 % (36-47); Hemoglobin 8.90 g/dL (11.27-16.99); Mean Corpuscular HGB Conc 33.6 g/dL (30-55); Mean Corpuscular Hemoglobin 30.1 pg (27-33); Mean Corpuscular Volume 89.5 fl (85-98); Nucleated Red Blood Cells % 0 %; Platelet Count 301 10^3/cmm (157-399); Red Blood Count 2.96 10^6/uL (3.85-5.65); White Blood Count 7.57 10^3/uL (3.29-11.43)
[2025-03-28 04:50] LABS: Alanine Aminotransferase 13 U/L (0-33); Albumin Level 3.6 g/dL (3.5-5.2); Alkaline Phosphatase 115 U/L (35-105); Anion Gap 16.5 (5-19); Aspartate Amino Transferase 11 U/L (0-32); Blood Urea Nitrogen 18 mg/dL (6-20); Calcium 8.6 mg/dL (8.5-10.5); Carbon Dioxide 21 mmol/L (22-29); Chloride 102 mmol/L (98-107); Globulin 3.7 g/dL (1.3-4.6); Glucose 128 mg/dL (65-115); Magnesium 1.9 mg/dL (1.7-2.3); Osmolality Calculated 286 mOsm/kg (285-295); Potassium 3.5 mmol/L (3.5-5.1); Sodium 136 mmol/L (136-145); Total Protein 7.3 g/dL (6.6-8.7)
[2025-03-28] MEDS: albumin 25 G/100 ML BAG 60 G IV ×3 (05:05→20:52)
[2025-03-28] MEDS: lactobacillus 1 Tablet 1 TAB PO ×2 (05:05→16:39)
[2025-03-28] MEDS: HYDROcodone-acetaminophen 5-325 mg Tablet 1 TAB PO ×3 (05:13→20:46)
[2025-03-28 08:05] LABS: CK-MB (CK-2) <0.7 ng/mL (0-5.0)
[2025-03-28 08:48] LABS: Hematocrit 27.7 % (36-47); Hemoglobin 9.00 g/dL (11.27-16.99)
[2025-03-28] MEDS: cefTRIAXone 1,000 mg SDV 1000 MG IVP (09:30)
[2025-03-28] MEDS: pantoprazole 40 mg SDV IVP ×2 (09:31→20:47)
--- NOTE | 2025-03-28 10:44 | P.PN_ITS ---
Subjective 2 Subjective: - Patient was seen this morning - She is alert oriented x 3, follow comm ands, no abdominal pain, no nausea, no vomiting, no bloody black stools - She is awaiting a bed at [facility] l - Discussed her hemoglobin at 8.9, will give her a unit of blood -Normotensive, room air, no chest pain, no palpitations, no shortness of breath - Discussed risk and benefits of continu ing anticoagulant therapy with anemia, certainly this is a difficult decision with her extensive DVT and PEs and thrombosis, shared decision making, she voiced understanding, all questions answered, agreed to proceed with anticoagulant therapy - Awaiting transfer to [facility] fo r consideration of IVC filter placement versus catheter directed thrombolysis with extensive bilateral extremity DVTs, concerns of IVC thrombus, with acute anemia, with need for multidisciplinary team/vascular surgery/IR with her extensive DVT/PE/thrombosis, with acute anemia - Called [facility] and updated them with patient's condition Vitals/I&O/Wt Last Vital Signs Temp 97.8 F 03/28/25 08:00 Pulse 101 H 03/28/25 09:24 Resp 16 03/28/25 09:24 BP 128/80 03/28/25 08:00 Pulse Ox 100 03/28/25 09:24 O2 Del Method Room Air 03/28/25 09:24 03/27/25 03/28/25 03/28/25 22:59 06:59 14:59 Intake Total 2720 / 3210 1800 / 5010 Output Total 300 / 400 300 / 700 Balance 2420 / 2810 1500 / 4310 Weight last 48 hrs Weight 112.2 kg Weight 110.1 kg Physical Exam 2 Const: COMMON NORMALS: no acute distress and patient oriented x3 Resp: COMMON NORMALS: normal respiratory effort, No retractions, No use of accessory muscles and clear to auscultation bilaterally AUSCULTATION: clear to auscultation bilaterally Cardio: COMMON NORMALS: regular rate, regular rhythm, S1 normal heart sound present and S2 normal heart sound present RATE: regular rate RHYTHM: r egular rhythm HEART SOUNDS: S1 normal heart sound present and S2 normal heart sound present GI: COMMON NORMALS: Normal to inspection, nondistended, normoactive bowel sounds present and non-tender Extremity: NARRATIVE EXTREMITY EXAM: 2+ pitting edema Neuro: COMMON NORMALS: patient oriented x3, CN's II-XII intact bilaterally and moves all extremities Psych: COMMON NORMALS: mental status grossly normal Data 03/28/25 08:31 03/28/25 04:14 Micro: Microbiology 03/26/25 11:09 Urine Culture - Preliminary Urine,Clean Catch A&P Assessment and plan 1. Pulmonary embolism: 2. Atrial fibrillation with RVR: 3. Community acquired pneumonia: 4. Acute cystitis: 5. Dyslipidemia: 6. Venous thromboembolism: 7. DVT (deep venous thrombosis): 8. Sepsis: 9. Hilar mass: 10. IVC thrombosis: 11. Shock: Plan: Acute bilateral pulmonary embolism FINDINGS: Pulmonary arteries: Extensive pulmonary emboli are present. The largest is lobar and to the right lower lobe with smaller emboli to each lower lobe and the left upper lobe. Aorta: Unremarkable. No aortic aneurysm. No aortic dissection. Lungs: There is a left hilar measuring 2.7 x 4.0 cm in size. This is probably neoplastic. Scattered partially consolidated infiltrate in the left lower lobe, postobstructive atelectasis or more likely pulmonary infarct or pneumonia. Pleural spaces: Unremarkable. No pneumothorax. No pleural effusion. Heart: The RV LV ratio is less than 1, no obvious right heart strain. Lymph nodes: Unremarkable. No enlarged lymph nodes. Gallbladder and biliary ducts: Cholelithiasis. Bones/joints: Unremarkable. No acute fracture. Soft tissues: Unremarkable. Other findings: No acute findings. Cardiac echo CONCLUSIONS Normal left ventricular size, systolic function and wall thickness with ejection fraction of 62%. Normal right ventricular size and systolic function. No significant valvular abnormalities. Small pericardial effusion posteriorly without tamponade. -Etiology left hilar mass, and/or oral contraceptive pills, does have a family history of DVTs and father will need workup Plan -Continue therapeutic Lovenox -Monitor respiratory status closely Possible pulmonary infarct - Left lower lobe - Anticoagulation as above Shock -Multifactorial -Sepsis from pneumonia, UTI -Obstructive shock from acute pulmonary embolism -IVC thrombosis Plan -Lactic acid 1.9 -IV fluids -Keep on bedrest Sepsis secondary to pneumonia UTI -CT of the chest showing infiltrates left lower lobe Plan - Rocephin - Azithromycin - IV fluids - Monitor respiratory status UTI, IV antibiotics Acute DVT bilateral lower extremity US/CV venous duplex [facility] [id number] IMPRESSION: Extensive deep venous thrombosis involving the entire visualized deep venous system within the right and left lower extremity. Waveforms within the right and left common femoral vein are dampened suggesting more central venous thrombosis, potentially involving the iliac veins and inferior vena cava. Plan - Continue therapeutic Lovenox IVC [place] [id number] IMPRESSION: Deep venous thrombosis is present within the visualized portion of the right and left iliac veins. Proximal aspect of the inferior vena cava appears patent and demonstrates normal phasicity. The mid and distal aspect of the inferior vena cava could not be adequately assessed secondary to overlying bowel gas . Waveforms demonstrate some phasicity but diminished as compared to the proximal IVC. This does raise concern for potential nonocclusive thrombus within the mid and distal inferior vena cava. Venous thrombosis involving the mid and distal inferior vena cava cannot be excluded. Consideration for IVC filter may be indicated. Clinical correlation and follow-up is recommended. - Spoke to Dr. Zapata here, given the complexity of her case, extensive DVTs, concern for IVC thrombus recommended patient be seen [facility] by vascular surgery for consideration of catheter directed thrombectomy versus IVC filter placement Plan -Continue therapeutic Lovenox - Accepted at [facility] potentially patient is candidate for IVC filter placement versus catheter directed thrombectomy, with her acute anemia, extensive bilateral extremity DVTs and bilateral PEs Acute anemia - Hemoglobin down to 8.9 - No bloody black stools - CT scan abdomen pelvis without contrast no evidence of retroperitoneal bleed Plan - Protonix, Carafate - Monitor hemoglobin 4 hours - Will give 1 unit PRBC - Monitor as patient is on therapeutic Lovenox CARLA on CKD - Potential component from sepsis - Bilateral PEs, DVT - IV fluids Full code Lovenox for DVT prophylaxis PDMP PDMP Reviewed: Last Reviewed 03/27/25 14:47 by Estuardo Roa MD Attestations 2 Medical Necessity Statement*: Patient requires hospitalization for acute anemia, bilateral knee DVTs, IVC thrombus, bilateral PEs, Diagnoses Pulmonary embolism I26.99 Atrial fibrillation with RVR I48.91 Community acquired pneumonia J18.9 Acute cystitis N30.00 Dyslipidemia E78.5 Venous thromboembolism I82.90 DVT (deep venous thrombosis) I82.409 Sepsis A41.9 Hilar mass R91.8 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
[2025-03-28] MEDS: fluticasone nasal spray 16gm Btl 1 SPRAY INTRANASAL (16:39)
[2025-03-28 18:23] LABS: Hematocrit 27.2 % (36-47); Hemoglobin 8.90 g/dL (11.27-16.99)
[2025-03-29] VITALS (7 sets, daily range): BP systolic 115–144; BP diastolic 69–82; PULSE 83–104; RESP 16–33; TEMP 36.4–36.8; O2SAT 92–98
[2025-03-29 00:43] LABS: Hematocrit 27.2 % (36-47); Hemoglobin 9.00 g/dL (11.27-16.99)
[2025-03-29] MEDS: HYDROcodone-acetaminophen 5-325 mg Tablet 1 TAB PO ×3 (04:21→20:51)
[2025-03-29] MEDS: lactobacillus 1 Tablet 1 TAB PO ×2 (04:22→18:33)
[2025-03-29] MEDS: sucralfate 1 gm/10 mL Oral Liq UDC PO ×3 (04:24→20:52)
[2025-03-29] MEDS: fluticasone nasal spray 16gm Btl 1 SPRAY INTRANASAL ×2 (04:24→18:35)
[2025-03-29] MEDS: albumin 25 G/100 ML BAG 60 G IV ×3 (04:25→20:58)
[2025-03-29 04:32] LABS: Hematocrit 28.9 % (36-47); Hemoglobin 8.90 g/dL (11.27-16.99); Mean Corpuscular HGB Conc 30.8 g/dL (30-55); Mean Corpuscular Hemoglobin 30.4 pg (27-33); Mean Corpuscular Volume 98.6 fl (85-98); Nucleated Red Blood Cells % 0 %; Platelet Count 239 10^3/cmm (157-399); Red Blood Count 2.93 10^6/uL (3.85-5.65); White Blood Count 8.79 10^3/uL (3.29-11.43)
[2025-03-29 04:49] LABS: Alanine Aminotransferase 11 U/L (0-33); Albumin Level 4.1 g/dL (3.5-5.2); Alkaline Phosphatase 103 U/L (35-105); Anion Gap 19.7 (5-19); Aspartate Amino Transferase 14 U/L (0-32); Blood Urea Nitrogen 12 mg/dL (6-20); Calcium 9.0 mg/dL (8.5-10.5); Carbon Dioxide 18 mmol/L (22-29); Chloride 103 mmol/L (98-107); Globulin 3.4 g/dL (1.3-4.6); Glucose 112 mg/dL (65-115); Magnesium 2.2 mg/dL (1.7-2.3); Osmolality Calculated 285 mOsm/kg (285-295); Potassium 3.7 mmol/L (3.5-5.1); Sodium 137 mmol/L (136-145); Total Protein 7.5 g/dL (6.6-8.7)
[2025-03-29 05:59] LABS: Hematocrit 25.4 % (36-47); Hemoglobin 8.50 g/dL (11.27-16.99)
[2025-03-29] MEDS: pantoprazole 40 mg SDV IVP ×2 (09:43→20:54)
[2025-03-29] MEDS: cefTRIAXone 1,000 mg SDV 1000 MG IVP (09:45)
--- NOTE | 2025-03-29 11:12 | PC.SOCIAL ---
IMM Update pg 2 of IMM Updated and reviewed w/ patient. Copy provided and copy dated, initialed and placed in chart.
[2025-03-29 11:43] LABS: Hematocrit 29.2 % (36-47); Hemoglobin 9.60 g/dL (11.27-16.99)
--- NOTE | 2025-03-29 13:33 | PM.PN ---
Subjective Subjective: awaiting transfer Vitals/I&O/Wt Last Vital Signs Temp 98.2 F 03/29/25 11:04 Pulse 101 H 03/29/25 11:04 Resp 22 H 03/29/25 11:04 BP 144/80 03/29/25 11:04 Pulse Ox 98 03/29/25 11:04 O2 Del Method Room Air 03/29/25 11:04 03/28/25 03/29/25 03/29/25 22:59 06:59 14:59 Intake Total 1580 / 3040 2000 / 5040 1730 / 1730 Output Total 500 / 800 500 / 1300 Balance 1080 / 2240 1500 / 3740 1730 / 1730 Weight last 48 hrs Weight 115.6 kg Weight 115.6 kg Weight 107 kg Weight 112.2 kg Physical Exam Const: COMMON NORMALS: no acute distress and patient oriented x3 Resp: COMMON NORMALS: normal respiratory effort, No retractions, No use of accessory muscles and clear to auscultation bilaterally AUSCULTATION: clear to auscultation bilaterally Cardio: COMMON NORMALS: regular rate, regular rhythm, S1 normal heart sound present and S2 normal heart sound present RATE: regular rate RHYTHM: regular rhythm HEART SOUNDS: S1 normal heart sound present and S2 normal heart sound present GI: COMMON NORMALS: Normal to inspection, nondistended, normoactive bowel sounds present and non-tender Extremity: NARRATIVE EXTREMITY EXAM: 2+ pitting edema Neuro: COMMON NORMALS: patient oriented x3, CN's II-XII intact bilaterally and moves all extremities Psych: COMMON NORMALS: mental status grossly normal Data 03/29/25 11:35 03/29/25 03:14 Micro: Microbiology 03/26/25 11:09 Urine Culture - Final Urine,Clean Catch A&P Assessment and plan 1. Atrial fibrillation with RVR: Plan: 1. Pulmonary embolism: 2. Atrial fibrillation with RVR: 3. Community acquired pneumonia: 4. Acute cystitis: 5. Dyslipidemia: 6. Venous thromboembolism: 7. DVT (deep venous thrombosis): 8. Sepsis: 9. Hilar mass: 10. IVC thrombosis: 11. Shock: Plan: Acute bilateral pulmonary embolism FINDINGS: Pulmonary arteries: Extensive pulmonary emboli are present. The largest is lobar and to the right lower lobe with smaller emboli to each lower lobe and the left upper lobe. Aorta: Unremarkable. No aortic aneurysm. No aortic dissection. Lungs: There is a left hilar measuring 2.7 x 4.0 cm in size. This is probably neoplastic. Scattered partially consolidated infiltrate in the left lower lobe, postobstructive atelectasis or more likely pulmonary infarct or pneumonia. Pleural spaces: Unremarkable. No pneumothorax. No pleural effusion. Heart: The RV LV ratio is less than 1, no obvious right heart strain. Lymph nodes: Unremarkable. No enlarged lymph nodes. Gallbladder and biliary ducts: Cholelithiasis. Bones/joints: Unremarkable. No acute fracture. Soft tissues: Unremarkable. Other findings: No acute findings. Cardiac echo CONCLUSIONS Normal left ventricular size, systolic function and wall thickness with ejection fraction of 62%. Normal right ventricular size and systolic function. No significant valvular abnormalities. Small pericardial effusion posteriorly without tamponade. -Etiology left hilar mass, and/or oral contraceptive pills, does have a family history of DVTs and father will need workup Plan -Continue therapeutic Lovenox -Monitor respiratory status closely Possible pulmonary infarct - Left lower lobe - Anticoagulation as above Shock -Multifactorial -Sepsis from pneumonia, UTI -Obstructive shock from acute pulmonary embolism -IVC thrombosis Plan -Lactic acid 1.9 -IV fluids -Keep on bedrest Sepsis secondary to pneumonia UTI -CT of the chest showing infiltrates left lower lobe Plan - Rocephin - Azithromycin - IV fluids - Monitor respiratory status UTI, IV antibiotics Acute DVT bilateral lower [place] US/[place] [id number] IMPRESSION: Extensive deep venous thrombosis involving the entire visualized deep venous system within the right and left lower extremity. Waveforms within the right and left common femoral vein are dampened suggesting more central venous thrombosis, potentially involving the iliac veins and inferior vena cava. Plan - Continue therapeutic Lovenox IVC [place] [id number] IMPRESSION: Deep venous thrombosis is present within the visualized portion of the right and left iliac veins. Proximal aspect of the inferior vena cava appears patent and demonstrates normal phasicity. The mid and distal aspect of the inferior vena cava could not be adequately assessed secondary to overlying bowel gas . Waveforms demonstrate some phasicity but diminished as compared to the proximal IVC. This does raise concern for potential nonocclusive thrombus within the mid and distal inferior vena cava. Venous thrombosis involving the mid and distal inferior vena cava cannot be excluded. Consideration for IVC filter may be indicated. Clinical correlation and follow-up is recommended. - Spoke to Dr. Zapata here, given the complexity of her case, extensive DVTs, concern for IVC thrombus recommended patient be seen [facility] by vascular surgery for consideration of catheter directed thrombectomy versus IVC filter placement Plan -Continue therapeutic Lovenox - Accepted at [facility] potentially patient is candidate for IVC filter placement versus catheter directed thrombectomy, with her acute anemia, extensive bilateral extremity DVTs and bilateral PEs Acute anemia - Hemoglobin 9.6 - No bloody black stools - CT scan abdomen pelvis without contrast no evidence of retroperitoneal bleed Plan - Protonix, Carafate - Monitor hemoglobin 4 hours - 1 unit PRBC - Monitor as patient is on therapeutic Lovenox CARLA on CKD -resolved - Potential component from sepsis - Bilateral PEs, DVT - IV fluids Full code Lovenox for DVT prophylaxis PDMP PDMP Reviewed: Not Reviewed Attestations Medical Necessity Statement*: awaiting transfer Coding Level of Care Code 14076 Diagnoses Atrial fibrillation with RVR I48.91
[2025-03-29 18:39] LABS: Hematocrit 26.6 % (36-47); Hemoglobin 8.60 g/dL (11.27-16.99)
[2025-03-30] VITALS (8 sets, daily range): BP systolic 116–150; BP diastolic 56–83; PULSE 80–115; RESP 16–33; TEMP 36.6–37.5; O2SAT 93–99
[2025-03-30 02:48] LABS: Hematocrit 25.2 % (36-47); Hemoglobin 8.20 g/dL (11.27-16.99)
[2025-03-30] MEDS: sucralfate 1 gm/10 mL Oral Liq UDC PO ×4 (04:07→20:30)
[2025-03-30] MEDS: lactobacillus 1 Tablet 1 TAB PO ×2 (04:08→16:29)
[2025-03-30] MEDS: albumin 25 G/100 ML BAG 60 G IV ×3 (04:11→20:32)
[2025-03-30] MEDS: fluticasone nasal spray 16gm Btl 1 SPRAY INTRANASAL ×2 (04:12→16:32)
[2025-03-30 07:23] LABS: Hematocrit 25.3 % (36-47); Hemoglobin 8.10 g/dL (11.27-16.99)
[2025-03-30] MEDS: cefTRIAXone 1,000 mg SDV 1000 MG IVP (08:06)
[2025-03-30] MEDS: pantoprazole 40 mg SDV IVP ×2 (08:06→20:30)
[2025-03-30] MEDS: HYDROcodone-acetaminophen 5-325 mg Tablet 1 TAB PO ×2 (08:31→20:28)
--- NOTE | 2025-03-30 12:27 | P.PN_ITS ---
Subjective 2 Subjective: awaiting transfer mother at bedside Vitals/I&O/Wt Last Vital Signs Temp 98.4 F 03/30/25 07:29 Pulse 101 H 03/30/25 07:48 Resp 16 03/30/25 07:48 BP 124/83 03/30/25 07:29 Pulse Ox 98 03/30/25 07:48 O2 Del Method Room Air 03/30/25 07:48 03/29/25 03/30/25 03/30/25 22:59 06:59 14:59 Intake Total 1680 / 3410 1122.083 / 4532.083 650 / 650 Output Total 0 / 0 0 / 0 1100 / 1100 Balance 1680 / 3410 1122.083 / 4532.083 -450 / -450 Weight last 48 hrs Weight 118.3 kg Weight 115.6 kg Weight 115.6 kg Weight 107 kg Physical Exam 2 Const: COMMON NORMALS: no acute distress and patient oriented x3 Resp: COMMON NORMALS: normal respiratory effort, No retractions, No use of accessory muscles and clear to auscultation bilaterally AUSCULTATION: clear to auscultation bilaterally Cardio: COMMON NORMALS: regular rate, regular rhythm, S1 normal heart sound present and S2 normal heart sound present RATE: regular rate RHYTHM: r egular rhythm HEART SOUNDS: S1 normal heart sound present and S2 normal heart sound present GI: COMMON NORMALS: Normal to inspection, nondistended, normoactive bowel sounds present and non-tender Extremity: NARRATIVE EXTREMITY EXAM: 2+ pitting edema Neuro: COMMON NORMALS: patient oriented x3, CN's II-XII intact bilaterally and moves all extremities Psych: COMMON NORMALS: mental status grossly normal Data 03/30/25 06:34 03/29/25 03:14 A&P Assessment and plan 1. DVT (deep vein thrombosis) in : Plan: 1. Pulmonary embolism: 2. Atrial fibrillation with RVR: 3. Community acquired pneumonia: 4. Acute cystitis: 5. Dyslipidemia: 6. Venous thromboembolism: 7. DVT (deep venous thrombosis): 8. Sepsis: 9. Hilar mass: 10. IVC thrombosis: 11. Shock: Plan: Acute bilateral pulmonary embolism FINDINGS: Pulmonary arteries: Extensive pulmonary emboli are present. The largest is lobar and to the right lower lobe with smaller emboli to each lower lobe and the left upper lobe. Aorta: Unremarkable. No aortic aneurysm. No aortic dissection. Lungs: There is a left hilar measuring 2.7 x 4.0 cm in size. This is probably neoplastic. Scattered partially consolidated infiltrate in the left lower lobe, postobstructive atelectasis or more likely pulmonary infarct or pneumonia. Pleural spaces: Unremarkable. No pneumothorax. No pleural effusion. Heart: The RV LV ratio is less than 1, no obvious right heart strain. Lymph nodes: Unremarkable. No enlarged lymph nodes. Gallbladder and biliary ducts: Cholelithiasis. Bones/joints: Unremarkable. No acute fracture. Soft tissues: Unremarkable. Other findings: No acute findings. Cardiac echo CONCLUSIONS Normal left ventricular size, systolic function and wall thickness with ejection fraction of 62%. Normal right ventricular size and systolic function. No significant valvular abnormalities. Small pericardial effusion posteriorly without tamponade. -Etiology left hilar mass, and/or oral contraceptive pills, does have a family history of DVTs and father will need workup Plan -Continue therapeutic Lovenox -Monitor respiratory status closely Possible pulmonary infarct - Left lower lobe - Anticoagulation as above Shock -Multifactorial -Sepsis from pneumonia, UTI -Obstructive shock from acute pulmonary embolism -IVC thrombosis Plan -Lactic acid 1.9 -IV fluids -Keep on bedrest Sepsis secondary to pneumonia UTI -CT of the chest showing infiltrates left lower lobe Plan - Rocephin - Azithromycin - IV fluids - Monitor respiratory status UTI, IV antibiotics Acute DVT bilateral lower [place] US/[place] [id number] IMPRESSION: Extensive deep venous thrombosis involving the entire visualized deep venous system within the right and left lower extremity. Waveforms within the right and left common femoral vein are dampened suggesting more central venous thrombosis, potentially involving the iliac veins and inferior vena cava. Plan - Continue therapeutic Lovenox IVC ultrasound [place]C [id number] IMPRESSION: Deep venous thrombosis is present within the visualized portion of the right and left iliac veins. Proximal aspect of the inferior vena cava appears patent and demonstrates normal phasicity. The mid and distal aspect of the inferior vena cava could not be adequately assessed secondary to overlying bowel gas . Waveforms demonstrate some phasicity but diminished as compared to the proximal IVC. This does raise concern for potential nonocclusive thrombus within the mid and distal inferior vena cava. Venous thrombosis involving the mid and distal inferior vena cava cannot be excluded. Consideration for IVC filter may be indicated. Clinical correlation and follow-up is recommended. - Spoke to Dr. Zapata here, given the complexity of her case, extensive DVTs, concern for IVC thrombus recommended patient be seen at tertiary [facility] by vascular surgery for consideration of catheter directed thrombectomy versus IVC filter placement Plan -Continue therapeutic Lovenox - Accepted at [facility] potentially patient is candidate for IVC filter placement versus catheter directed thrombectomy, with her acute anemia, extensive bilateral extremity DVTs and bilateral PEs Acute anemia - Hemoglobin stable - No bloody black stools - CT scan abdomen pelvis without contrast no evidence of retroperitoneal bleed Plan - Protonix, Carafate - Monitor hemoglobin 4 hours - 1 unit PRBC - Monitor as patient is on therapeutic Lovenox CARLA on CKD -resolved - Potential component from sepsis - Bilateral PEs, DVT - IV fluids Full code Lovenox for DVT prophylaxis PDMP PDMP Reviewed: Not Reviewed Attestations 2 Medical Necessity Statement*: anticoagulation, monitoring blood count Coding Level of Care Code 21814 Diagnoses DVT (deep vein thrombosis) in O22.30
[2025-03-30 12:42] LABS: Hematocrit 26.0 % (36-47); Hemoglobin 8.40 g/dL (11.27-16.99)
--- NOTE | 2025-03-30 22:51 | PC.NURSE ---
patient transferred to [facility] via EMS, report called to Carol GUIDRY
== END 2025-03-30 23:08 | disposition short-term general hospital (02) | DRG 871 ==
LOC: ER 08:40 → CSU 08:42
PROVIDERS: Clinical Nurse Specialist Acute Care; Family Medicine; Admitting Provider Internal Medicine; Emergency Provider Emergency Medicine; Visit Provider Internal Medicine
DX: A41.9 Sepsis, unspecified organism (principal); I26.99 Other pulmonary embolism without acute cor pulmonale; R65.21 Severe sepsis with septic shock; J18.9 Pneumonia, unspecified organism; I82.220 Acute embolism and thrombosis of inferior vena cava; N30.00 Acute cystitis without hematuria; N17.9 Acute kidney failure, unspecified; Z68.41 Body mass index [BMI] 40.0-44.9, adult; I82.4Z3 Acute embolism and thrombosis of unspecified deep veins of distal lower extremity, bilateral; I82.413 Acute embolism and thrombosis of femoral vein, bilateral; I82.433 Acute embolism and thrombosis of popliteal vein, bilateral; I48.91 Unspecified atrial fibrillation; E78.5 Hyperlipidemia, unspecified; R91.8 Other nonspecific abnormal finding of lung field; D64.9 Anemia, unspecified; I12.9 Hypertensive chronic kidney disease with stage 1 through stage 4 chronic kidney disease, or unspecified chronic kidney disease; N18.9 Chronic kidney disease, unspecified; E66.9 Obesity, unspecified; G89.29 Other chronic pain; M54.9 Dorsalgia, unspecified; Z87.891 Personal history of nicotine dependence
CPT/HCPCS: 36415; 36430; 71045; 71275; 74176; 80048; 80053; 80061; 81001; 82553; 82728; 83036; 83540; 83550; 83605; 83735; 83880; 84100; 84443; 84484; 85014; 85018; 85025; 85378; 85610; 86403; 86850; 86900; 86920; 87086; 87449; 87486; 87581; 87633; 87637; 93005; 93306; 93970; 93978; 96361; 96372; 96374; 96375; 99285; J0282; J0456; J0696; J1200; J1650; J1885; J2270; J2470; J2765; J7030; J7050; J7120; J9999; P9040; P9046